=== PATIENT | female | born 1965 | race Caucasian/White ===

== ENCOUNTER 2018-04-20 14:22 | Outpatient (CLI) | payer OTHER, SELFPAY ==
--- NOTE | 2018-04-20 14:18 | DI.RAD_ITS ---
SYMPTOMS/DIAGNOSIS: LEFT FOOT PAIN LEFT FOOT: Three views. No priors. No acute fracture or dislocation. No suspicious lytic or sclerotic lesions are seen. There is a large spur at the plantar surface of the calcaneus. There is a moderate size enthesophyte at the insertion site of the Achilles onto the calcaneus. Mild joint space narrowing and periarticular spurring are seen at the 1st metatarsophalangeal joint. No radiopaque foreign bodies are seen in the soft tissues. IMPRESSION: Mild degenerative changes of the left foot.
== END 2018-04-20 14:42 ==
PROVIDERS: PCP Nurse Practitioner Family; Visit Provider Physician Assistant
DX: M79.672 Pain in left foot (principal); M77.32 Calcaneal spur, left foot; M19.072 Primary osteoarthritis, left ankle and foot
CPT/HCPCS: 73630

== ENCOUNTER 2018-08-11 22:34 | Emergency (ER) | payer OTHER, SELFPAY ==
[2018-08-11 22:39] VITALS: BP 162/85; PULSE 82; RESP 16; TEMP 36.6; O2SAT 96
--- NOTE | 2018-08-11 23:34 | ED.GENADUL_ITS ---
Discharge Plan Disposition Patient Disposition: HOME Condition: Fair Discharge Details Chief Complaint: Chest/Rib Clinical Impression: Back pain Primary Care Provider: Vanna Arguello ED Provider: Tamia Goff Home Meds and New Rx's Prescriptions: New lidocaine [Lidoderm] 5 % adhesive patch,medicated 1 patch TP DAILY Qty: 15 RF: 0 Continued meloxicam 15 mg tablet 15 mg PO DAILY Qty: 30 RF: 0 levonorgestrel [Mirena] 1 EACH intrauterine device 1 ea Intrauterine ONCE Qty: 1 RF: 0 acetaminophen [Tylenol] 325 MG tablet 325 mg PO PRN RF: 0 fluticasone [Flovent HFA] 12 GM HFA aerosol inhaler 110 mcg Inhalation BID PRNRF: 0 furosemide 20 MG tablet 20 mg PO DAILY PRNRF: 0 albuterol sulfate [ProAir RespiClick] 90 MCG aerosol powdr breath activated 2 puff IN PRN PRNRF: 0 oxycodone-acetaminophen 1 TAB tablet 1 tab PO Q6H PRN PRNQty: 14 RF: 0 Discharge Instructions Instructions: Back Pain (ED) Additional Instructions: Encourage hydration. Encourage gentle stretching. Heat or ice to affected area. Tylenol as needed for discomfort. Naproxen may be used twice daily, take this prior to bed to help with inflammation and discomfort. You may try topical patches, these are available over the counter as Lidoderm patches or Salonpas patches. If you develop rash, fevers, chills, abdominal pain, have urinary change, increased pain or other new/worsening symptoms please seek care urgently once again. If pain persists next week please follow up with primary care. Referrals: Vanna Arguello [Primary Care Provider] - Medical Decision Making Patient is a 53 year old female presenting today with c/c of right sided back pain that began 3-4 days ago. Pain only noted when laying supine. No pain when upright or with movement. Denies SOB, no CP. Denies change in urinary habits, no hematuria. Denies any fevers or chills. No cough or upper respiratory symptoms. Is not noted any rash. Denies any trauma or overexertion. States her bra is bothersome to the area so she stopped wearing this. On exam, patient does not appear to be in any discomfort. She is good range of motion, no midline tenderness. No CVA tenderness. No focal tenderness is elicited with palpation over the area. No crepitus. No pain with AP or lateral pressure applied to the chest wall. Patient has been normal sinus rhythm with no murmurs rubs or gallops. Lungs are clear with no wheezes rales or rhonchi. I did examine the patient's abdomen is well and when supine she began endorsing some discomfort on the right side of her mid thoracic back. No pain with palpation over the abdomen. Patient is noted to be obese but otherwise abdomen exam is benign. Patient is noted to be hypertensive but otherwise vital signs within normal limits. She has not taken anything on previous evenings for her discomfort. Will give Tylenol, naproxen and apply Lidoderm patch. Advised that likely, as this is so positional, he needs a musculoskeletal origin. Patient does have history of allergy to ibuprofen but reports she has taken naproxen without issue. Advised to take this to help with inflammation. Advise follow- up with primary care next week if pain persists. Encouraged hydration. We discussed new/worsening symptoms when to seek care urgently once again. All of his questions and concerns were addressed and he is in agreement with this plan. HPI General Mode of arrival: ambulatory . Date/Time Provider Initiated Documentation: 08/11/18 22:47 . Limitations to Documentation: no limitations . Information obtained by: patient . History of Present Illness 53 year old F presents to the emergency department with the chief complaint of right sided back pain, described as moderate, with intensity rated at 8. Quality is described as aching, and is localized to the back. Patient reports no radiation. Patient started experiencing this day(s) (3-4) and it has been intermittent (only when laying flat). other things that improve symptom(s), (upright position) Patient notes no other symptoms.; denies chest pain, cough, diaphoresis, fever/chills, loss of appetite, nausea/vomiting, rash, shortness of breath and weakness. Patient did receive the following treatments prior to arrival, none Related Data Home Medications Medication Instructions Recorded Confirmed furosemide 20 mg PO DAILY PRN 02/06/17 11/16/17 acetaminophen [Tylenol] 325 mg PO PRN tab-cap 07/27/17 11/16/17 fluticasone [Flovent HFA] 110 mcg INHALATION BID PRN inhaler 07/27/17 11/16/17 levonorgestrel [Mirena] 1 ea INTRAUTERINE ONCE #1 implant 07/27/17 11/16/17 albuterol sulfate [ProAir 2 puff IN PRN PRN 08/03/17 11/16/17 RespiClick] oxycodone-acetaminophen 1 tab PO Q6H PRN PRN #14 tab 11/16/17 meloxicam 15 mg tablet 15 mg PO DAILY #30 tab 04/20/18 04/20/18 lidocaine [Lidoderm] 1 patch TP DAILY #15 each 08/11/18 Previous Rx's Medication Instructions Recorded oxycodone-acetaminophen 1 tab PO Q6H PRN PRN #14 tab 11/16/17 meloxicam 15 mg tablet 15 mg PO DAILY #30 tab 04/20/18 lidocaine [Lidoderm] 1 patch TP DAILY #15 each 08/11/18 Allergies Allergy/AdvReac Type Severity Reaction Status Date / Time ibuprofen Allergy Unknown Skin Rash Unverified 08/11/18 22:56 General Stated Complaint: Chest/Rib JAYLON: 4 Review of Systems Constitutional Reports as per HPI, Denies chills, Denies fever(s), Denies headache(s), Denies lethargy and Denies poor appetite Eyes Denies change in vision ENT Denies headache(s) Cardiovascular Reports as per HPI, Denies chest pain, Denies rapid heart rate, Denies irregular heart rhythm, Denies lightheadedness, Denies radiating jaw, neck or arm pain, Denies palpitations, Denies dyspnea and Denies dyspnea on exertion Respiratory Denies chest congestion, Denies cough, Denies pain on inspiration, Denies pain with cough, Denies dyspnea, Denies dyspnea on exertion and Denies wheezing Gastrointestinal Reports as per HPI, Denies abdominal pain, Reports constipation (endorses intermittent constipation), Denies diarrhea, Denies nausea and Denies vomiting Musculoskeletal Reports as per HPI, Reports back pain, Denies numbness and Denies radiating pain into limb Integumentary/Breasts Reports as per HPI and Denies rash Neurologic Denies headache(s) and Denies numbness Endocrine Denies palpitations Allergic/Immunologic Denies wheezing PFSH Medical History Constipation Obesity, Class III, BMI 40-49.9 (morbid obesity) Osteoarthritis Surgical History Colonoscopy - MAC (10/25/16) Excision, Skin Mass Family History Mother Cervical cancer Social History Smoking/Tobacco Use Status: Current every day Exam Const General: cooperative, healthy appearing, comfortable, no acute distress and well developed Nutritional Appearance: well nourished and obese Orientation: alert, awake and oriented x3 HENMT Head: normal to inspection Ears: hearing grossly normal bilaterally Mouth: moist mucous membranes Chest Chest: normal inspection of the chest, normal palpation of entire chest wall and no crepitus Resp Effort & Inspection: normal respiratory effort, able to speak in complete sentences and no respiratory distress Auscultation: clear to auscultation bilaterally, no rales, no rhonchi and no wheezes Cardio Rate: regular rate Rhythm: regular rhythm Heart Sounds: S1 normal and S2 normal GI Inspection: normal to inspection, no edema and non-distended Palpation: soft, no hepatosplenomegaly, not firm, no guarding, not rigid and nontender Auscultation: normal bowel sounds Back/Spine/Pelvis Back: no CVA tenderness Thoracic/Lumbar Spine: thoracic and lumbar spine normal to inspection, thoraco- lumbar ROM normal, No paraspinal tenderness, No thoraco-lumbar ROM limited, No thoracic spinal tenderness and No lumbar spinal tenderness Skin General skin exam: no rashes or lesions noted Trauma: no lacerations or abrasions Neuro General: alert, awake and oriented x3 Cognition: normal cognition Speech: speech normal Gait: normal gait Extrem General: normal gait Psych Appearance: grossly normal and well kempt Mental Status: mental status grossly normal Speech and Movement: speech and movement normal Course Vital Signs Temperature 36.6 C 08/11/18 22:39 Pulse 82 08/11/18 22:39 Respiratory Rate 16 08/11/18 22:39 Blood Pressure 162/85 H 08/11/18 22:39 Pulse Oximetry 96 08/11/18 22:39 Temperature 36.6 C 08/11/18 22:39 Temperature Source Skin 08/11/18 22:39 Pulse 82 08/11/18 22:39 Respiratory Rate 16 08/11/18 22:39 Respiratory Effort Non-Labored 08/11/18 22:44 Blood Pressure 162/85 H 08/11/18 22:39 Pulse Oximetry 96 08/11/18 22:39 Oxygen Delivery Method Room Air 08/11/18 22:39 Oxygen Flow Rate 0 08/11/18 22:39 Pain Level 8 08/11/18 22:44
[2018-08-11] MEDS: Lidocaine 5% Patch 1 PATCH TP (23:54)
[2018-08-11] MEDS: Acetaminophen 500 MG TAB 1000 MG PO (23:54)
[2018-08-11] MEDS: Naproxen 500 MG TAB PO (23:54)
[2018-08-11 23:58] VITALS: BP 162/85; PULSE 82; RESP 16; TEMP 36.6; O2SAT 96
== END 2018-08-12 00:22 | disposition home or self-care (01) ==
PROVIDERS: Emergency Provider Physician Assistant; PCP Nurse Practitioner Family
DX: M54.6 Pain in thoracic spine (principal)
CPT/HCPCS: 99283

== ENCOUNTER 2018-09-07 18:39 | Emergency (ER) | payer OTHER, SELFPAY ==
[2018-09-07 18:46] VITALS: BP 127/86; PULSE 94; RESP 18; TEMP 37.2; O2SAT 96
--- NOTE | 2018-09-07 18:50 | DI.RAD_ITS ---
SYMPTOM/DIAGNOSIS: PAIN RIGHT KNEE: Three views were obtained. There are degenerative changes of the joints of the knee. There is no evidence of acute fracture.
--- NOTE | 2018-09-07 18:50 | W.ED.GENAD ---
Discharge Plan Disposition Patient Disposition: HOME Condition: Stable Discharge Details Chief Complaint: Orthopedic Clinical Impression: Knee sprain Primary Care Provider: Vanna Arguello ED Provider: Ramon Delgado Home Meds and New Rx's Prescriptions: No Action meloxicam 15 mg tablet 15 mg PO DAILY Qty: 30 RF: 0 levonorgestrel [Mirena] 1 EACH intrauterine device 1 ea Intrauterine ONCE Qty: 1 RF: 0 acetaminophen [Tylenol] 325 MG tablet 325 mg PO PRN RF: 0 fluticasone [Flovent HFA] 12 GM HFA aerosol inhaler 110 mcg Inhalation BID PRNRF: 0 furosemide 20 MG tablet 20 mg PO DAILY PRNRF: 0 albuterol sulfate [ProAir RespiClick] 90 MCG aerosol powdr breath activated 2 puff IN PRN PRNRF: 0 oxycodone-acetaminophen 1 TAB tablet 1 tab PO Q6H PRN PRNQty: 14 RF: 0 lidocaine [Lidoderm] 5 % adhesive patch,medicated 1 patch TP DAILY Qty: 15 RF: 0 Discharge Instructions Instructions: Knee Sprain (ED) Discharge Data Discharge Date/Time-TO BE ENTERED AT DEPARTURE: 09/07/18 20:33 Discharge Physician: Ramon Delgado Medical Decision Making 53 yo female states she stood up from sitting an hour or so ago, denies falling or other trauma, and developed anterior inferior right knee pain. Denies fevers or chills. No other pain elsewhere. Has pain with palpation to the lateral joint line and inferior knee with no palpable deformities or swelling compared to the left knee. Suspect strain vs bursitis, will xray to eval for fx xray negative on my read. Pt still having significant pain with weight bearing, though mechanism would make fx unlikely I did recommend CT to evaluate for possible fx but she declined this at this time. If vrad agrees no fx will d/c home Differential Diagnosis bursitis, fx, sprain, strain Imaging Data Radiologic Study: Attestation: I personally reviewed and interpreted this imaging study as follows: Imaging: X-Ray My impression: no acute findings HPI General Mode of arrival: ambulatory. Date/Time Provider Initiated Documentation: 09/07/18 18:42. Limitations to Documentation: no limitations. Information obtained by: patient. History of Present Illness 53 year old F presents to the emergency department with the chief complaint of right knee pain, described as moderate, with intensity rated at 6. Quality is described as aching, and is localized to the right and lower extremity. Patient reports no radiation. Patient started experiencing this hour(s) (1) and it has been constant. Rest improves symptom(s), Movement worsens symptoms . Patient notes no other symptoms.. Related Data Home Medications Medication Instructions Recorded Confirmed furosemide 20 mg PO DAILY PRN 02/06/17 11/16/17 acetaminophen [Tylenol] 325 mg PO PRN tab-cap 07/27/17 11/16/17 fluticasone [Flovent HFA] 110 mcg INHALATION BID PRN inhaler 07/27/17 11/16/17 levonorgestrel [Mirena] 1 ea INTRAUTERINE ONCE #1 implant 07/27/17 11/16/17 albuterol sulfate [ProAir 2 puff IN PRN PRN 08/03/17 11/16/17 RespiClick] oxycodone-acetaminophen 1 tab PO Q6H PRN PRN #14 tab 11/16/17 meloxicam 15 mg tablet 15 mg PO DAILY #30 tab 04/20/18 04/20/18 lidocaine [Lidoderm] 1 patch TP DAILY #15 each 08/11/18 Previous Rx's Medication Instructions Recorded oxycodone-acetaminophen 1 tab PO Q6H PRN PRN #14 tab 11/16/17 meloxicam 15 mg tablet 15 mg PO DAILY #30 tab 04/20/18 lidocaine [Lidoderm] 1 patch TP DAILY #15 each 08/11/18 Allergies Allergy/AdvReac Type Severity Reaction Status Date / Time ibuprofen Allergy Unknown Skin Rash Unverified 08/11/18 22:56 General Stated Complaint: Orthopedic JAYLON: 4 Review of Systems Review of Systems All systems reviewed & are unremarkable except as noted in HPI and below Constitutional Denies chills, Denies fever(s) and Denies weakness Cardiovascular Denies chest pain and Denies dyspnea Respiratory Denies cough and Denies dyspnea Gastrointestinal Denies abdominal pain, Denies nausea and Denies vomiting Genitourinary Denies dysuria Musculoskeletal Denies joint swelling Integumentary/Breasts Denies rash Neurologic Denies weakness Psychiatric Denies depression [facility] Medical History Constipation Obesity, Class III, BMI 40-49.9 (morbid obesity) Osteoarthritis Surgical History Colonoscopy - MAC (10/25/16) Excision, Skin Mass Family History Mother Cervical cancer Social History Smoking and Tabacco status: Current every day Exam Const General: no acute distress Orientation: alert HENMT Head: normal to inspection Ears: external ears normal General nose exam: external nose normal Mouth: moist mucous membranes Eyes General: appearance normal, both eyes and all related structures Neck Neck: normal visual inspection Resp Effort & Inspection: normal respiratory effort and able to speak in complete sentences Cardio Rate: regular rate Skin General skin exam: no rashes or lesions noted Neuro General: alert and oriented x3 Extrem General: full ROM and normal capillary refill Psych Mental Status: mental status grossly normal Course Vital Signs Temperature 37.2 C 09/07/18 18:46 Pulse 94 H 09/07/18 18:46 Respiratory Rate 18 09/07/18 18:46 Blood Pressure 127/86 09/07/18 18:46 Pulse Oximetry 96 09/07/18 18:46 Temperature 37.2 C 09/07/18 18:46 Temperature Source Skin 09/07/18 18:46 Pulse 94 H 09/07/18 18:46 Respiratory Rate 18 09/07/18 18:46 Respiratory Effort 09/07/18 18:49 Blood Pressure 127/86 09/07/18 18:46 Pulse Oximetry 96 09/07/18 18:46 Oxygen Delivery Method Room Air 09/07/18 18:46 Oxygen Flow Rate 0 09/07/18 18:46 Pain Level 0 09/07/18 18:46 Comment 09/07/18 18:46
--- NOTE | 2018-09-07 18:53 | ED.GENADUL_ITS ---
Discharge Plan Disposition Patient Disposition: HOME Condition: Stable Discharge Details Chief Complaint: Orthopedic Clinical Impression: Knee sprain Primary Care Provider: Vanna Arguello ED Provider: Ramon Delgado Home Meds and New Rx's Prescriptions: No Action meloxicam 15 mg tablet 15 mg PO DAILY Qty: 30 RF: 0 levonorgestrel [Mirena] 1 EACH intrauterine device 1 ea Intrauterine ONCE Qty: 1 RF: 0 acetaminophen [Tylenol] 325 MG tablet 325 mg PO PRN RF: 0 fluticasone [Flovent HFA] 12 GM HFA aerosol inhaler 110 mcg Inhalation BID PRNRF: 0 furosemide 20 MG tablet 20 mg PO DAILY PRNRF: 0 albuterol sulfate [ProAir RespiClick] 90 MCG aerosol powdr breath activated 2 puff IN PRN PRNRF: 0 oxycodone-acetaminophen 1 TAB tablet 1 tab PO Q6H PRN PRNQty: 14 RF: 0 lidocaine [Lidoderm] 5 % adhesive patch,medicated 1 patch TP DAILY Qty: 15 RF: 0 Discharge Instructions Instructions: Knee Sprain (ED) Discharge Data Discharge Date/Time-TO BE ENTERED AT DEPARTURE: 09/07/18 20:33 Discharge Physician: Ramon Delgado Medical Decision Making 53 yo female states she stood up from sitting an hour or so ago, denies falling or other trauma, and developed anterior inferior right knee pain. Denies fevers or chills. No other pain elsewhere. Has pain with palpation to the lateral joint line and inferior knee with no palpable deformities or swelling compared to the left knee. Suspect strain vs bursitis, will xray to eval for fx xray negative on my read. Pt still having significant pain with weight bearing, though mechanism would make fx unlikely I did recommend CT to evaluate for possible fx but she declined this at this time. If vrad agrees no fx will d/c home Differential Diagnosis bursitis, fx, sprain, strain Imaging Data Radiologic Study: Attestation: I personally reviewed and interpreted this imaging study as follows: Imaging: X-Ray My impression: no acute findings HPI General Mode of arrival: ambulatory . Date/Time Provider Initiated Documentation: 09/07/18 18:42 . Limitations to Documentation: no limitations . Information obtained by: patient . History of Present Illness 53 year old F presents to the emergency department with the chief complaint of right knee pain, described as moderate, with intensity rated at 6. Quality is described as aching, and is localized to the right and lower extremity. Patient reports no radiation. Patient started experiencing this hour(s) (1) and it has been constant. Rest improves symptom(s), Movement worsens symptoms . Patient notes no other symptoms.. Related Data Home Medications Medication Instructions Recorded Confirmed furosemide 20 mg PO DAILY PRN 02/06/17 11/16/17 acetaminophen [Tylenol] 325 mg PO PRN tab-cap 07/27/17 11/16/17 fluticasone [Flovent HFA] 110 mcg INHALATION BID PRN inhaler 07/27/17 11/16/17 levonorgestrel [Mirena] 1 ea INTRAUTERINE ONCE #1 implant 07/27/17 11/16/17 albuterol sulfate [ProAir 2 puff IN PRN PRN 08/03/17 11/16/17 RespiClick] oxycodone-acetaminophen 1 tab PO Q6H PRN PRN #14 tab 11/16/17 meloxicam 15 mg tablet 15 mg PO DAILY #30 tab 04/20/18 04/20/18 lidocaine [Lidoderm] 1 patch TP DAILY #15 each 08/11/18 Previous Rx's Medication Instructions Recorded oxycodone-acetaminophen 1 tab PO Q6H PRN PRN #14 tab 11/16/17 meloxicam 15 mg tablet 15 mg PO DAILY #30 tab 04/20/18 lidocaine [Lidoderm] 1 patch TP DAILY #15 each 08/11/18 Allergies Allergy/AdvReac Type Severity Reaction Status Date / Time ibuprofen Allergy Unknown Skin Rash Unverified 08/11/18 22:56 General Stated Complaint: Orthopedic JAYLON: 4 Review of Systems Review of Systems All systems reviewed & are unremarkable except as noted in HPI and below Constitutional Denies chills, Denies fever(s) and Denies weakness Cardiovascular Denies chest pain and Denies dyspnea Respiratory Denies cough and Denies dyspnea Gastrointestinal Denies abdominal pain, Denies nausea and Denies vomiting Genitourinary Denies dysuria Musculoskeletal Denies joint swelling Integumentary/Breasts Denies rash Neurologic Denies weakness Psychiatric Denies depression [facility] Medical History Constipation Obesity, Class III, BMI 40-49.9 (morbid obesity) Osteoarthritis Surgical History Colonoscopy - MAC (10/25/16) Excision, Skin Mass Family History Mother Cervical cancer Social History Smoking and Tabacco status: Current every day Exam Const General: no acute distress Orientation: alert HENMT Head: normal to inspection Ears: external ears normal General nose exam: external nose normal Mouth: moist mucous membranes Eyes General: appearance normal, both eyes and all related structures Neck Neck: normal visual inspection Resp Effort & Inspection: normal respiratory effort and able to speak in complete sentences Cardio Rate: regular rate Skin General skin exam: no rashes or lesions noted Neuro General: alert and oriented x3 Extrem General: full ROM and normal capillary refill Psych Mental Status: mental status grossly normal Course Vital Signs Temperature 37.2 C 09/07/18 18:46 Pulse 94 H 09/07/18 18:46 Respiratory Rate 18 09/07/18 18:46 Blood Pressure 127/86 09/07/18 18:46 Pulse Oximetry 96 09/07/18 18:46 Temperature 37.2 C 09/07/18 18:46 Temperature Source Skin 09/07/18 18:46 Pulse 94 H 09/07/18 18:46 Respiratory Rate 18 09/07/18 18:46 Respiratory Effort 09/07/18 18:49 Blood Pressure 127/86 09/07/18 18:46 Pulse Oximetry 96 09/07/18 18:46 Oxygen Delivery Method Room Air 09/07/18 18:46 Oxygen Flow Rate 0 09/07/18 18:46 Pain Level 0 09/07/18 18:46 Comment 09/07/18 18:46
--- NOTE | 2018-09-07 19:50 | DI.VRAD_ITS ---
EXAM: XR Right Knee, 3 Views EXAM DATE/TIME: 09/07/2018 6:51 PM CLINICAL HISTORY: 53 years old, female; Pain; Knee; Right; Additional info: Unable to straighten or bear weight on right leg due to knee pain, S/P standing up earlier this evening per patient TECHNIQUE: XR Right knee 3 views. COMPARISON: No relevant prior studies available. FINDINGS: Bones/joints: Mild degenerative changes with joint space narrowing within the medial and lateral compartments. Patellar enthesophytes. Small suprapatellar effusion. Soft tissues: Normal. IMPRESSION: No acute fractures or dislocations. Mild degenerative changes. Dictated and Authenticated by: Marco Delong MD. Ordering:ANIYA Navarro MD
[2018-09-07 20:24] VITALS: BP 127/86; PULSE 94; RESP 18; TEMP 37.2; O2SAT 96
[2018-09-07] MEDS: Naproxen 250 MG TAB (20:29)
== END 2018-09-07 20:33 | disposition home or self-care (01) ==
PROVIDERS: Emergency Provider Emergency Medicine; PCP Nurse Practitioner Family
DX: S83.91XA Sprain of unspecified site of right knee, initial encounter (principal); X58.XXXA Exposure to other specified factors, initial encounter
CPT/HCPCS: 29105; 73562; 99283; 99282; E0114; L1830

== ENCOUNTER 2019-05-18 13:45 | Emergency (ER) | payer OTHER, SELFPAY ==
[2019-05-18 13:51] VITALS: BP 135/85; PULSE 87; RESP 16; TEMP 37; O2SAT 96
--- NOTE | 2019-05-18 13:52 | ED.GENADUL_ITS ---
Discharge Plan Disposition Patient Disposition: AGAINST MEDICAL ADVICE Condition: Fair Discharge Details Chief Complaint: Cellulitis Clinical Impression: Superficial thrombophlebitis, Cellulitis Primary Care Provider: Rubens Lee ED Provider: Tamia Goff Home Meds and New Rx's Prescriptions: No Action Mirena 1 EACH intrauterine device 1 ea Intrauterine ONCE Qty: 1 RF: 0 acetaminophen [Tylenol] 325 MG tablet 325 mg PO PRN RF: 0 albuterol sulfate [ProAir RespiClick] 90 MCG aerosol powdr breath activated 2 puff IN PRN PRNRF: 0 Medical Decision Making Patient 54-year-old female presents today with chief complaint of right lower extremity pain. She reports that she noted a hard, warm and erythematous area to the right medial calf this morning this is grown significantly while at work today. States the pain is severe. Denies any known trauma. No fevers or chills. Does not have history of varicosities. Denies any numbness or tingling. On exam, the patient has a area of erythema approximately 15 cm in diameter surrounding an area of indurated skin approximately 5 cm in diameter. No fluctuance. It is not raised. A culture from the area of concern for superficial thrombophlebitis. 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 Will obtain US and patient will leave. She will return after getting them to discuss results and make a plan. discussed that she will likely be on abx and +/- anticoagulation. Patient left prior to results. She is aware that if this is a DVT she could be at risk for serious complications, knows that she should stay and has capacity to make this decisio n. She reports that she will return in approximately one hour for results and to discuss care plan. Labs reviewed, mild leukocytosis with WBC 11.11. PT/ PTT pending. Discussed imaging results with tech who advised scattered superficial vessels in the area of erythema are thrombosed but no large length of involvement. Estimates greatest length to be approximately 3cm but advises that htis is very tortuous. Awaiting results from radiologist. However, if this is the same as their read, will plan for rest, ice, CARLENE, NSAID and antibiotic. HPI General Mode of arrival: ambulatory . Date/Time Provider Initiated Documentation: 05/18/19 13:52 . Limitations to Documentation: no limitations . Information obtained by: patient, family and RN notes reviewed . History of Present Illness 54 year old F presents to the emergency department with the chief complaint of right medial calf pain, described as moderate, with intensity rated at 5. Quality is described as aching, and is localized to the right and lower extremity. Patient reports no radiation. Patient started experiencing this hour(s) and it has been constant. Immobilization improves symptom(s), Other factors that worsen symptoms (pressure applied to area) . Patient notes rash (erythema); denies chest pain, cough, fever/chills, nausea/vomiting, shortness of breath and weakness. Patient did receive the following treatments prior to arrival, none Related Data Home Medications Medication Instructions Recorded Confirmed Mirena 1 ea INTRAUTERINE ONCE #1 implant 07/27/17 05/18/19 acetaminophen [Tylenol] 325 mg PO PRN tab-cap 07/27/17 11/16/17 albuterol sulfate [ProAir 2 puff IN PRN PRN 08/03/17 11/16/17 RespiClick] Allergies Allergy/AdvReac Type Severity Reaction Status Date / Time ibuprofen Allergy Unknown Skin Rash Unverified 05/18/19 13:57 General JAYLON: 4 Review of Systems Constitutional Constitutional: Reports as per HPI, Denies chills, Denies fever(s), Denies headache(s) and Denies weakness ENT Ears, Nose, Mouth, and Throat: Denies headache(s) Cardiovascular Cardiovascular: Reports as per HPI Respiratory Respiratory: Reports as per HPI and Denies cough Musculoskeletal Musculoskeletal: Reports as per HPI and Denies tingling Integumentary/Breasts Skin/Breast: Reports as per HPI, Reports erythema and Reports skin pain Neurologic Neurologic: Reports as per HPI, Denies headache(s), Denies tingling, Denies paresthesias and Denies weakness [facility] Medical History Constipation Obesity, Class III, BMI 40-49.9 (morbid obesity) Osteoarthritis Surgical History Colonoscopy - MAC (10/25/16) Excision, Skin Mass Social History Smoking/Tobacco Use Status: Current every day Drug use: Never Do you feel safe in your relationship?: Yes Exam Const General: cooperative, healthy appearing, comfortable, no acute distress, well developed and well groomed Nutritional Appearance: average body habitus and well nourished Orientation: alert and awake Resp Effort & Inspection: normal respiratory effort, able to speak in complete sentences and no respiratory distress Cardio Rate: regular rate Rhythm: regular rhythm Skin General skin exam: erythema, no fluctuance and induration Neuro General: alert and awake Cognition: normal cognition Speech: speech normal Gait: normal gait Motor: muscle tone normal throughout Sensory Exam: no sensory deficits noted Extrem Ankle/foot/toe images: 1. area of erythema with central induration. No palpable cord. No pain pos teriorly. Intact distal pulses Psych Appearance: grossly normal and well kempt Mental Status: mental status grossly normal Speech and Movement: speech and movement normal
--- NOTE | 2019-05-18 14:21 | DI.US_ITS ---
EXAM: US LOWER EXTREMITY VENOUS RT CLINICAL HISTORY: superficial thrombophlebitis- going deeper? size? Medial calf redness, swelling an d pain started this morning TECHNIQUE: Ultrasound performed using standard protocol. COMPARISON: No exams were available for comparison FINDINGS: The femoral and popliteal veins and deep calf veins are freely compressible. The Doppler venous wavef orm augments normally. There are dilated superficial veins in the right medial calf, which show thro mbus. This is in the area of the patient's tenderness. The veins above and below this area show no evidence of thrombus. IMPRESSION: SUPERFICIAL THROMBOPHLEBITIS IN THE MEDIAL CALF. NO EVIDENCE OF DVT.
[2019-05-18 14:44] LABS: HCT 45.8 % (36.0-46.0); HGB 15.3 g/dL (12.0-15.5); Mean Corp. HGB Concentration 33.4 g/dL (32.0-36.0); Mean Corpuscular Hemoglobin 30.4 pg (27.0-33.0); Mean Corpuscular Volume 90.9 fL (80-95); Mean Platelet Volume 10.2 fL (8.0-11.0); Platelet Count 391 x1000/uL (130-400); RBC 5.04 m/cumm (4.00-5.20); RBC Distribution Width 14.1 % (11.7-14.6); White Blood Cell Count 11.11 k/cumm (4.4-10.8)
[2019-05-18 14:55] LABS: ALT 33 U/L (14-59); AST 15 U/L (15-37); Albumin 3.7 g/dL (3.4-5.0); Alkaline Phosphatase 95 U/L (46-116); Anion Gap 10.5 mmol/L (3-11); BUN 14 mg/dL (7-18); Bilirubin, Total 0.3 mg/dL (0.2-1.0); CO2 27.5 mmol/L (21.0-32.0); CREATININE 0.87 mg/dL (0.55-1.02); Chloride 105 mmol/L (98-107); Glucose 117 mg/dL (70-100); Potassium 3.5 mmol/L (3.5-5.1); Sodium 143 mmol/L (136-145); Total Protein 8.1 g/dL (6.4-8.2)
[2019-05-18 15:24] LABS: INR 1.1 (0.9-1.1); PTT Activated 24.7 sec (21.0-31.4); Prothrombin Time 10.8 sec (9.3-11.0)
== END 2019-05-18 15:25 | disposition left against medical advice (07) ==
PROVIDERS: Emergency Provider Physician Assistant; PCP Nurse Practitioner Family
DX: L03.114 Cellulitis of left upper limb (principal); I80.01 Phlebitis and thrombophlebitis of superficial vessels of right lower extremity; Z53.29 Procedure and treatment not carried out because of patient's decision for other reasons
CPT/HCPCS: 36415; 80053; 85027; 99284; 85610; 85730; 93971

== ENCOUNTER 2019-05-18 17:27 | Emergency (ER) | payer OTHER, SELFPAY ==
[2019-05-18 17:31] VITALS: BP 145/90; PULSE 71; RESP 14; TEMP 36.8
--- NOTE | 2019-05-18 18:09 | ED.GENADUL_ITS ---
Discharge Plan Disposition Patient Disposition: HOME Condition: Stable Discharge Details Chief Complaint: Recheck Clinical Impression: Superficial thrombophlebitis Primary Care Provider: Rubens Lee ED Provider: Loren Sprague Home Meds and New Rx's Prescriptions: New cephalexin [Keflex] 500 mg capsule 500 mg PO QID 7 Days Qty: 28 RF: 0 Continued Mirena 1 EACH intrauterine device 1 ea Intrauterine ONCE Qty: 1 RF: 0 acetaminophen [Tylenol] 325 MG tablet 325 mg PO PRN RF: 0 albuterol sulfate [ProAir RespiClick] 90 MCG aerosol powdr breath activated 2 puff IN PRN PRNRF: 0 Discharge Instructions Instructions: Superficial Thrombophlebitis (ED) Additional Instructions: Take yaat-ahm-jjjrcai Aleve or Advil as directed over the next few days to help treat the redness, inflammation and pain. Try to elevate your right leg as much as possible. You can apply warm or cool compresses to the affected area several times daily for 20 minutes at a time. Wear the Trae wrap as much as possible. If you develop fever, worsening redness, swelling or drainage, start the antibiotics. Follow-up with your primary care doctor next week for reevaluation. Return to the emergency department if you develop any worsening or new concerning symptoms of significant worsening of symptoms, chest pain, shortness of breath or dizziness. Discharge Data Discharge Date/Time-TO BE ENTERED AT DEPARTURE: 05/18/19 18:24 Discharge Physician: Loren Sprague Medical Decision Making 54-year-old female with history of obesity presents with right leg pain and redness that started at 4 AM and has gotten progressively worse throughout the day. She was seen earlier today for the same complaint but had to leave to deal with rental car issue. She had lab work and ultrasound done at that time which noted a white blood cell count of 11 but otherwise unremarkable and an ultrasound which noted superficial thrombophlebitis but no DVT. Patient denies any complaints of fever, chest pain, shortness of breath. She has been wearing a knee brace due to a recent patella complication/displacement. It is possible that the hard metal within the knee brace she has been wearing may have caused an irritation/inflammation in the skin leading to this. Her right medial leg has an approximate area 10 x 8 cm that appears erythematous not well-circumscribed, blanching and very tender to touch which appears can be c/w a superficial thrombophlebitis and/or possibly early cellulitis. She denies any recent history of ablation therapy, blood clotting disorders, recent travel or recent surgery. Her chart noted an allergy to ibuprofen which causes skin rash but she states she has tolerated Aleve and Advil in the past. Will give a dose of Aleve here and an Trae wrap was placed over her area of erythema and tenderness extending up above the patella allowing an opening around patella similar to knee brace. She is advised to call her doctor regarding use of the knee brace with her current thrombophlebitis. She was also given a prescription for Keflex to start if she develops fever or worsening symptoms including purulent drainage. She was advised to return immediately to the emergency department if she develops any shortness of breath, chest pain or dizziness. Discussed at length with patient that I do not think she needs anticoagulation at this time as there is no deep extension of the superficial thrombus or any history of recent endovenous ablation therapy or other known risk factors. Another consideration could be serial ultrasounds to reassess any extension of superficial thrombus. HPI General Mode of arrival: ambulatory . Date/Time Provider Initiated Documentation: 05/18/19 17:43 . Limitations to Documentation: no limitations . Information obtained by: patient . History of Present Illness described as moderate, with intensity rated at 6. Quality is described as aching and sharp, and is localized to the right and lower extremity (leg). Patient reports no radiation. Patient started experiencing this hour(s) (13) and it has been constant. Immobilization improves symptom(s), Other factors that worsen symptoms (pressure to area) . Patient notes rash and other (denies known injury but states she has been wearing a knee brace recently for a knee cap problem which may have rubbed against her leg); denies chest pain, cough, diaphoresis, fever/chills, headaches, loss of appetite, malaise, nausea/vomiting, shortness of breath, syncope and weakness. Patient did receive the following treatments prior to arrival, none Related Data Home Medications Medication Instructions Recorded Confirmed Mirena 1 ea INTRAUTERINE ONCE #1 implant 07/27/17 05/18/19 acetaminophen [Tylenol] 325 mg PO PRN tab-cap 07/27/17 11/16/17 albuterol sulfate [ProAir 2 puff IN PRN PRN 08/03/17 11/16/17 RespiClick] cephalexin [Keflex] 500 mg PO QID 7 Days #28 cap 05/18/19 Previous Rx's Medication Instructions Recorded cephalexin [Keflex] 500 mg PO QID 7 Days #28 cap 05/18/19 Allergies Allergy/AdvReac Type Severity Reaction Status Date / Time ibuprofen Allergy Unknown Skin Rash Unverified 05/18/19 13:57 General Stated Complaint: Recheck JAYLON: 4 Review of Systems All systems reviewed & are unremarkable except as noted in HPI and below Constitutional Constitutional: Reports as per HPI, Denies chills and Denies fever(s) Eyes Eyes: Denies blurry vision ENT Ears, Nose, Mouth, and Throat: Denies dizziness, Denies sore throat and Denies throat swelling Cardiovascular Cardiovascular: Denies chest pain and Denies dyspnea Respiratory Respiratory: Denies cough and Denies dyspnea Gastrointestinal Gastrointestinal: Denies abdominal pain, Denies diarrhea and Denies vomiting Genitourinary Genitourinary: Denies hematuria and Denies dysuria Musculoskeletal Musculoskeletal: Denies back pain and Denies numbness Integumentary/Breasts Skin/Breast: Denies lesions and Denies rash Neurologic Neurologic: Denies dizziness, Denies focal weakness and Denies numbness Allergic/Immunologic Allergic/Immunologic: Denies throat swelling [facility] Medical History Constipation Obesity, Class III, BMI 40-49.9 (morbid obesity) Osteoarthritis Surgical History Colonoscopy - MAC (10/25/16) Excision, Skin Mass Family History Mother Cervical cancer Social History Smoking/Tobacco Use Status: Current every day Tobacco Type: cigarettes Alcohol Intake: never Drug use: Never Substance use type: does not use Do you feel safe at home: Yes Do you feel safe in your relationship?: Yes Exam Const General: cooperative, healthy appearing and no acute distress HENMT Head: normal to inspection Face and sinus: normal facial exam Eyes General: appearance normal, both eyes and all related structures Pupils: PERRL EOM: EOM intact bilaterally Neck Neck: normal visual inspection and No submandibular swelling Lymphatic: no lymphadenopathy noted Chest Chest: normal inspection of the chest and no tenderness Resp Effort & Inspection: normal respiratory effort and able to speak in complete sentences Cardio Rate: regular rate GI Inspection: normal to inspection Palpation: soft, not firm, not rigid and nontender Auscultation: normal bowel sounds Skin General skin exam: no rashes or lesions noted Neuro General: alert, awake and oriented x3 Cognition: normal cognition Speech: speech normal Motor: muscle tone normal throughout Sensory Exam: no sensory deficits noted Extrem Ankle/foot/toe images: 1. Tender, erythematous, with patchy faint non-circumscribed edges noted on r ight medial proximal leg. There are no pustules, vesicles, bleeding or drainage. Right DP/PT pulses intact. No significant overall edema of right leg compared to left. Psych Appearance: grossly normal Mental Status: mental status grossly normal Speech and Movement: speech and movement normal Affect: normal affect Course Vital Signs Vital signs: Vital Signs Temperature 98.2 F 05/18/19 17:31 Pulse 71 05/18/19 17:31 Respiratory Rate 14 05/18/19 17:31 Blood Pressure 145/90 H 05/18/19 17:31 Temperature 98.2 F 05/18/19 17:31 Temperature Source Temporal Artery Scan 05/18/19 17:31 Pulse 71 05/18/19 17:31 Respiratory Rate 14 05/18/19 17:31 Respiratory Effort Non-Labored 05/18/19 17:33 Blood Pressure 145/90 H 05/18/19 17:31 Blood Pressure Position Sitting 05/18/19 17:31 Oxygen Delivery Method Room Air 05/18/19 17:31 Oxygen Flow Rate 0 05/18/19 17:31 Pain Level 5 05/18/19 17:31
[2019-05-18] MEDS: Naproxen 250 MG TAB (18:15)
== END 2019-05-18 18:24 | disposition home or self-care (01) ==
PROVIDERS: Emergency Provider Physician Assistant; PCP Nurse Practitioner Family
DX: I80.01 Phlebitis and thrombophlebitis of superficial vessels of right lower extremity (principal)
CPT/HCPCS: 99283

== ENCOUNTER 2019-07-03 09:59 | Emergency (ER) | payer OTHER, SELFPAY ==
[2019-07-03] VITALS (22 sets, daily range): BP systolic 110–151; BP diastolic 65–86; PULSE 66–80; RESP 15–29; TEMP 36.7; O2SAT 92–100
--- NOTE | 2019-07-03 10:26 | W.ED.GENAD ---
Discharge Plan Disposition Patient Disposition: HOME Condition: Good Discharge Details Chief Complaint: Chest/Rib Clinical Impression: Chest pain Primary Care Provider: Rubens Lee ED Provider: Suhas Banuelos Home Meds and New Rx's Prescriptions: No Action Mirena 1 EACH intrauterine device 1 ea Intrauterine ONCE Qty: 1 RF: 0 acetaminophen [Tylenol] 325 MG tablet 325 mg PO PRN RF: 0 ProAir RespiClick 90 MCG aerosol powdr breath activated 2 puff IN PRN PRNRF: 0 aspirin 325 mg Tablet 325 mg PO DAILY RF: 0 Discharge Instructions Instructions: Chest Pain (ED) Additional Instructions: I would definitely recommend cutting down on smoking. At this time your chest pain does not seem to be related to your heart. If you notice any worsening of your symptoms, or any new symptoms such as vomiting, diarrhea, fever, chills, shortness of breath, chest pain, numbness, weakness, or fainting , please return immediately to the emergency department for reevaluation. Please follow up with your primary care provider as soon as possible for reassessment and reevaluation. As always, it was a pleasure participating in your medical care today. Referrals: Rubens Lee, [employer] PS[employer]IST [Primary Care Provider] - Medical Decision Making This is a pleasant 54-year-old female who presents today for shortness of breath and mild chest pain that started last night and was present when she woke up. It got better when she got up and ambulated around. No red flags of cough hemoptysis long trips recent surgeries or procedures. However she does have red flags of the Mirena estrogen control device, as well as a history of superficial thrombophlebitis. EKG shows no evidence of STEMI. Signs and symptoms demonstrate notably stable appearing patient. Patient feels that her symptoms are related to stress. Differential includes PE, stress and atypical cardiac etiology which I feel less likely. With her risk factors will get a d-dimer, currently she is pain-free. Will monitor closely and reassess. 12:05 PM Patient's laboratory work-up is returned negative for acute process, troponin normal, white count normal, electrolytes normal and her renal function normal. proBNP normal. Since the patient's symptoms started last night over 12 hours ago and is no indication for repeat troponin at this time. Additionally patient has been chest pain-free here, signs and symptoms are clinically inconsistent with ACS. With a negative d-dimer, and a chest x-ray with no acute process per Dr. Conley of radiology, they see no indication for further evaluation at this time. Signs and symptoms are likely secondary to potential very mild bronchitis, and potential decompensation secondary to decreased mobility with her chronic pain. We recommended cutting down on tobacco use, as well as close follow-up with her PCP. We discussed red flags which to return. I have extensively reviewed the treatment plan and discharge instructions with the patient. I have addressed all patient concerns at this time. The patient was made aware of what symptoms to monitor for that would warrant a return to the emergency department. Discussed the plan with the patient, they demonstrate verbal understanding and agreement with our assessment and plan at this time. EKG 10: 08 Rate 84, intervals normal, sinus rhythm, no significant ST elevations or depressions, there is an inverted T wave in lead III, as well as minimal less than 1 mm depression in lead II. No evidence of STEMI. EKG from 02/06/2017 demonstrates similar findings in the past. HPI General Date/Time Provider Initiated Documentation: 07/03/19 10:00. HPI Narrative: This is a 54-year-old female with a past medical history of obesity, takes estrogen control, and history of superficial thrombophlebitis, who presents today for evaluation of chest pain shortness of breath. Patient states that for the last 12 hours she has had mild right-sided rib pain mild chest tightness. She has some associated shortness of breath with this. She has been under significant amount of stress as of late and feels that this may be the causative agent. She denies any independent pleuritic chest pain. She does state that when she woke up with the pain this morning in conjunction from last night, it got better when she got up and walked around. She denies any cough or hemoptysis. She denies any fever or chills. She denies any change of exertional capability. She denies any change in her chronic superficial thrombophlebitis. She does admit to taking a daily aspirin. She has no other complaints at this time. No other modifying factors. She denies any history of pulmonary embolism in the past. She denies any history of cardiac disease, but does admit to tobacco use. She denies any family history of cardiac disease. Related Data Home Medications Medication Instructions Recorded Confirmed Mirena 1 ea INTRAUTERINE ONCE #1 implant 07/27/17 07/03/19 acetaminophen [Tylenol] 325 mg PO PRN tab-cap 07/27/17 07/03/19 ProAir RespiClick 2 puff IN PRN PRN 08/03/17 07/03/19 aspirin 325 mg PO DAILY 07/03/19 07/03/19 Allergies Allergy/AdvReac Type Severity Reaction Status Date / Time ibuprofen Allergy Unknown Skin Rash Unverified 07/03/19 10:06 General Stated Complaint: Chest/Rib JAYLON: 3 Review of Systems All systems reviewed & are unremarkable except as noted in HPI and below PFSH Social History Smoking/Tobacco Use Status: Current every day Tobacco Type: cigarettes Alcohol Intake: never Drug use: Never Substance use type: does not use Do you feel safe at home: Yes Do you feel safe in your relationship?: Yes Exam Narrative Exam Narrative: 1.Const: Well-nourished, Well-developed, appearing stated age 2.Eyes: PERRL, no conjunctival injection, and symmetrical lids. 3.ENT: Atraumatic external nose and ears. Moist MM. Neck: Symmetric, trachea midline, No thyromegaly. 4.CVS: +S1/S2, No murmurs or gallops. Peripheral pulses 2+ and equal in all extremities. Brisk capillary refill in all extremities. 5.RESP: Unlabored respiratory effort. Clear to auscultation bilaterally. No wheezes rales or rhonchi 6.GI: Soft, Nontender/Nondistended, No hepatosplenomegaly. No guarding or rebound. 7.MSK: Normocephalic/Atraumatic, Extremities w/o deformity or ttp No cyanosis or clubbing, Normal movement of all extremities. +1 pitting edema bilaterally, mild palpable slightly irritated superficial thrombophlebitis in various areas that are unchanged per patient. No significant posterior calf tenderness. Pulses intact, no evidence of significant erythema or warmth or evidence of cellulitis. 8.Skin: Warm, Dry. No rashes or lesions. 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 Sensation grossly intact, no focal neurologic deficits. 10.Psych: (AAO) x3. Appropriate mood and affect Course Vital Signs Vital signs: Vital Signs Temperature 36.7 C 07/03/19 10:02 Pulse 78 07/03/19 10:02 Respiratory Rate 25 H 07/03/19 10:02 Blood Pressure 151/79 H 07/03/19 10:02 Pulse Oximetry 100 07/03/19 10:02 Temperature 36.7 C 07/03/19 10:02 Temperature Source Temporal Artery Scan 07/03/19 10:02 Pulse 78 07/03/19 10:02 Respiratory Rate 25 H 07/03/19 10:02 Respiratory Effort Non-Labored 07/03/19 10:07 Respiratory Depth Normal 07/03/19 10:07 Respiratory Pattern Normal 07/03/19 10:07 Blood Pressure 151/79 H 07/03/19 10:02 Blood Pressure Position Sitting 07/03/19 10:02 Pulse Oximetry 100 07/03/19 10:02 Oxygen Delivery Method Room Air 07/03/19 10:02 Oxygen Flow Rate 0 07/03/19 10:02 Pain Level 2 07/03/19 10:07
[2019-07-03 10:36] LABS: Abs Immature Grans 0.03 k/cumm (0.0-0.09); Absolute Basophil Count 0.04 k/cumm (0.0-0.2); Absolute Lymphocyte Count 2.95 k/cumm (1.2-3.4); Absolute Monocyte Count 0.91 k/cumm (0.11-0.7); Absolute Neutrophil Count 5.57 k/cumm (1.2-6.7); Basophils % 0.4; Eosinophils % 3.1; HCT 44.4 % (36.0-46.0); HGB 14.6 g/dL (12.0-15.5); Immature Grans % 0.3; Lymphocytes % 30.1; Mean Corp. HGB Concentration 32.9 g/dL (32.0-36.0); Mean Corpuscular Hemoglobin 30.2 pg (27.0-33.0); Mean Corpuscular Volume 91.9 fL (80-95); Mean Platelet Volume 9.6 fL (8.0-11.0); Monocytes % 9.3; Neutrophils % 56.8; Platelet Count 367 x1000/uL (130-400); RBC 4.83 m/cumm (4.00-5.20); RBC Distribution Width 14.6 % (11.7-14.6)
[2019-07-03 10:50] LABS: Prothrombin Time 10.2 sec (9.3-11.0)
[2019-07-03 11:09] LABS: ALT 34 U/L (14-59); AST 26 U/L (15-37); Albumin 3.3 g/dL (3.4-5.0); Alkaline Phosphatase 91 U/L (46-116); BUN 15 mg/dL (7-18); Bilirubin, Total 0.3 mg/dL (0.2-1.0); CREATININE 0.68 mg/dL (0.55-1.02); Calcium 8.9 mg/dL (8.5-10.1); Chloride 107 mmol/L (98-107); Glucose 94 mg/dL (74-106); NT-proBNP 365 pg/mL (<300); Potassium 3.8 mmol/L (3.5-5.1); Sodium 144 mmol/L (136-145); Total Protein 7.5 g/dL (6.4-8.2)
[2019-07-03 11:10] LABS: Troponin I < 0.05 ng/Ml (<0.06)
[2019-07-03 11:13] LABS: D-Dimer 472 ng/mlFEU (<500)
--- NOTE | 2019-07-03 11:49 | DI.RAD_ITS ---
EXAM: XR CHEST 2V PA LATERAL INDICATION: central chest pain. COMPARISON: CHEST 2 VIEWS PA,LAT from 08/03/2017 TECHNIQUE: 2D digital imaging was performed. FINDINGS: The heart size is within normal limits. No infiltrate, effusion or pneumothorax is seen. There are mild degenerative changes in the thoracic spine. No compression fractures are seen. IMPRESSION: No acute abnormality.
== END 2019-07-03 12:15 | disposition home or self-care (01) ==
PROVIDERS: Emergency Provider Student in an Organized Health Care Education/Training Program; PCP Nurse Practitioner Family
DX: R07.81 Pleurodynia (principal); R06.02 Shortness of breath; F17.210 Nicotine dependence, cigarettes, uncomplicated; Z86.718 Personal history of other venous thrombosis and embolism; Z79.3 Long term (current) use of hormonal contraceptives
CPT/HCPCS: 36415; 80053; 93005; 99285; 71046; 83880; 84484; 85025; 85379; 85610; 85730; 93010; 99284

== ENCOUNTER 2019-08-14 00:46 | Outpatient (CLI) | payer OTHER, SELFPAY ==
--- NOTE | 2019-08-14 14:08 | DI.US_ITS ---
EXAM: US LOWER EXTREMITY VENOUS RT CLINICAL HISTORY: SUPERFICIAL THROMBOPHLEBITIS I80.9 TECHNIQUE: Ultrasound performed using standard protocol. COMPARISON: US LOWER EXTREMITY VENOUS RT FROM 05/18/2019 FINDINGS: Dilated superficial veins in the medial calf again contain thrombus. The proximal saphenous vein sterling ears free of thrombus. The deep venous system is free of thrombus. No Schmid's cyst is seen. IMPRESSION: No significant change in superficial venous thrombosis in the medial calf. No deep venous thrombosis .
== END 2019-08-14 01:06 ==
PROVIDERS: PCP Nurse Practitioner Family; Visit Provider Nurse Practitioner Family
DX: I80.01 Phlebitis and thrombophlebitis of superficial vessels of right lower extremity (principal)
CPT/HCPCS: 93971

== ENCOUNTER 2019-08-28 13:09 | Outpatient (REF) | payer OTHER, SELFPAY ==
[2019-08-28 14:07] LABS: HCT 45.9 % (36.0-46.0); HGB 15.3 g/dL (12.0-15.5); Mean Corp. HGB Concentration 33.3 g/dL (32.0-36.0); Mean Corpuscular Hemoglobin 30.5 pg (27.0-33.0); Mean Corpuscular Volume 91.6 fL (80-95); Mean Platelet Volume 10.5 fL (8.0-11.0); Platelet Count 394 x1000/uL (130-400); RBC 5.01 m/cumm (4.00-5.20); RBC Distribution Width 14.5 % (11.7-14.6); White Blood Cell Count 9.37 k/cumm (4.4-10.8)
[2019-08-28 14:30] LABS: ALT 27 U/L (14-59); AST 13 U/L (15-37); Albumin 3.4 g/dL (3.4-5.0); Alkaline Phosphatase 99 U/L (46-116); Anion Gap 11.1 mmol/L (3-11); BUN 12 mg/dL (7-18); Bilirubin, Total 0.4 mg/dL (0.2-1.0); CO2 26.9 mmol/L (21.0-32.0); CREATININE 0.75 mg/dL (0.55-1.02); Calcium 8.9 mg/dL (8.5-10.1); Calculated LDL 138 mg/dL (<100); Chloride 106 mmol/L (98-107); Cholesterol 194 mg/dL (<200); Glucose 112 mg/dL (74-106); HDL Cholesterol 40 mg/dL (40-60); Potassium 3.9 mmol/L (3.5-5.1); Sodium 144 mmol/L (136-145); TSH (W/Ref FT4) 1.08 uIU/mL (0.36-3.74); Total Protein 6.9 g/dL (6.4-8.2); Triglyceride 81 mg/dL (<150)
== END 2019-08-28 13:29 ==
LOC: NCHCN 13:09
PROVIDERS: PCP Nurse Practitioner Family; Visit Provider Nurse Practitioner Family
DX: R63.5 Abnormal weight gain (principal); R53.83 Other fatigue
CPT/HCPCS: 80053; 80061; 85027; 84443

== ENCOUNTER 2019-09-13 02:43 | Outpatient (CLI) | payer OTHER, SELFPAY ==
--- NOTE | 2019-09-13 | DI.MAMMO_ITS ---
EXAM: MAMMO SCREENING CLINICAL HISTORY: SCREENING FOR BREAST CANCER Z12.39 TECHNIQUE: Mammograms were interpreted according to the usual protocol including computer analysis w [employer] CAD system, tomosynthesis and C-view imaging. COMPARISON: 2009 through 2015 FINDINGS: The breasts are composed of mainly fatty density , Breast Density category A. No suspicious masses or suspicious microcalcifications are seen. No skin thickening or abnormal axillary lymph nodes are seen. There has been no significant change from prior exams. IMPRESSION: BIRADS Category 1, negative mammogram. Yearly screening mammography is recommended. Breast density category A.
== END 2019-09-13 03:03 ==
PROVIDERS: PCP Nurse Practitioner Family; Visit Provider Nurse Practitioner Family
DX: Z12.31 Encounter for screening mammogram for malignant neoplasm of breast (principal)
CPT/HCPCS: 77063; 77067

== ENCOUNTER 2019-09-26 01:27 | Outpatient (CLI) | payer OTHER, SELFPAY ==
--- NOTE | 2019-09-26 | DI.US_ITS ---
EXAM: US LOWER EXTREMITY VENOUS RT CLINICAL HISTORY: SUPERFICIAL THROMBOPHLEBITIS, I80.9, EVALUATE FOR EXTENSION. TECHNIQUE: Right lower extremity venous ultrasound performed using grayscale, color-flow, and spectr al Doppler analysis. COMPARISON: US LOWER EXTREMITY VENOUS RT from 08/14/2019 FINDINGS: The right common femoral, femoral and popliteal veins demonstrate normal compressibility, augmentatio n, and color Doppler. The posterior tibial veins are patent.Again noted is superficial venous thrombo sis in the calf region. There is no extension into the deep venous system. IMPRESSION: No change in superficial calf vein thrombus. No evidence of extension into the deep venous system. No DVT. DATA REPOSITORY:
== END 2019-09-26 01:47 ==
PROVIDERS: PCP Nurse Practitioner Family; Visit Provider Nurse Practitioner Family
DX: I82.811 Embolism and thrombosis of superficial veins of right lower extremity (principal)
CPT/HCPCS: 93971

== ENCOUNTER 2019-11-22 14:49 | Outpatient (REF) | payer OTHER, SELFPAY ==
[2019-11-24 15:54] LABS: COVID-19 RT-PCR UVMMC Result Negative (Negative)
== END 2019-11-22 15:09 ==
LOC: NCHCN 14:49
PROVIDERS: PCP Nurse Practitioner Family; Visit Provider Nurse Practitioner Family
DX: R19.7 Diarrhea, unspecified (principal)
CPT/HCPCS: U0003

== ENCOUNTER 2019-12-04 08:33 | Outpatient (CLI) | payer OTHER, SELFPAY ==
[2019-12-05 18:34] LABS: COVID-19 RT-PCR Result NEGATIVE (Negative)
== END 2019-12-04 08:53 ==
PROVIDERS: PCP Nurse Practitioner Family; Visit Provider Surgery
DX: Z11.59 Encounter for screening for other viral diseases (principal); Z01.818 Encounter for other preprocedural examination
CPT/HCPCS: U0003

== ENCOUNTER 2019-12-07 06:58 | Day surgery (SDC) | payer OTHER, SELFPAY ==
[2019-12-07 07:17] VITALS: BP 126/86; PULSE 87; RESP 20; TEMP 36.4; O2SAT 95
[2019-12-07] MEDS: Lactated Ringers 1,000 ML 80 ML IV ×2 (07:30→08:55)
--- NOTE | 2019-12-07 08:14 | PDOC.DSDIS_ITS ---
Discharge Plan Disposition Patient Disposition: HOME Condition: Good Discharge Details Reason For Visit: Colonoscopy Attending Provider: Dang Singh Primary Care Provider: Rubens Lee Home Meds and New Rx's Prescriptions: Continued gabapentin 100 mg capsule 100 mg PO QHS RF: 0 Flovent HFA 110 mcg/actuation HFA aerosol inhaler 2 puff IH BID RF: 0 furosemide 20 mg tablet 20 mg PO DAILY RF: 0 bisacodyl [Dulcolax (bisacodyl)] 5 mg tablet,delayed release (DR/EC) 15 mg PO PRN RF: 0 Mirena 1 EACH intrauterine device 1 ea Intrauterine ONCE Qty: 1 RF: 0 acetaminophen [Tylenol] 325 MG tablet 325 mg PO PRN RF: 0 ProAir RespiClick 90 MCG aerosol powdr breath activated 2 puff IN PRN PRNRF: 0 aspirin 325 mg Tablet 325 mg PO DAILY RF: 0 Discontinued polyethylene glycol 3350 17 gram/dose powder 238 g PO ONCE Qty: 238 RF: 0 bisacodyl [Dulcolax (bisacodyl)] 5 mg tablet,delayed release (DR/EC) 5 mg PO ONCE Qty: 4 RF: 0 Discharge Instructions Additional Instructions: Findings: Two small polyps were removed. Diverticulosis was present. Follow up: My office will contact you with biopsy results. It is anticipated you will need a colonoscopy again in 5 years. Make sure to take in 30 grams of fiber daily and drink enough water. It is okay to use a daily stool softener or laxative if needed. Please call if you develop: fevers >101.5 Nausea or Vomiting Abdominal pain that is not transient DAY SURGERY UNIT POST COLONOSCOPY INSTRUCTIONS 1. Because there will be medication in your system for the next 24 hours, you may feel a little sleepy. Your coordination will be affected. Therefore: a. Do not drive or operate dangerous equipment for 24 hours. b. Do not drink alcohol beverages for 24 hours (not even beer). c. Plan to go home and rest for the day. 2. Generally there are no restrictions on your activity after a day or so has gone by, but you may feel a bit fatigued for a few days. 3 After you arrive home you may have a light meal and return to a normal diet as you can tolerate it without feeling sick to your stomach. 4. After surgery, you may feel pain or discomfort. This should be only transient , but if it persists please contact your doctor. 5. If there are any questions regarding the findings of your procedure, please feel free to contact your doctor. 6. If you are unable to contact your doctor with a problem, contact the hospital at [phone]. 7. Continue all your regular medications unless directed otherwise. I understand the above instructions and have no questions. Signature of Patient or Responsible Adult Escort Date/Time Name of Responsible Adult Escort Signature of Nurse Date/Time Activity:: Activity as Tolerated Diet:: As Tolerated Discharge Orders Discharge Orders: Discharge Order (Routine); Ordered 12/07/19 Ordered By: Dang Singh DS: Diagnosis Discharge Diagnosis (1) Colon polyps: Status: Acute (2) Diverticulosis: Status: Acute
--- NOTE | 2019-12-07 08:25 | W.COLOREPORT ---
Date of service: 12/07/19 Time of Service: 09:00 Colonoscopy Report Date of procedure: 12/07/19 Pre-op diagnosis general: History of colon polyps Post-op diagnosis procedure note: other (Colon polyps, diverticulosis) Procedure: Colonoscopy with biopsy Surgeon: Dang Singh Anesthesia proc note operative: MAC Disposition: same day Indications: This 54-year-old woman presents for routine colonoscopy. She had a large ascending colon polyp removed in 2017 and presents for follow-up. She has noted increased constipation of the last few months and needs to take laxatives to have a bowel movement about every 3 days. Procedure Description: The patient was placed in the left Fleming position. Propofol was titrated to sedation. Digital rectal examination revealed no abnormalities. The scope was advanced to the cecum without difficulty. The ileocecal valve and appendiceal orifice were clearly identified. The prep was good. The scope was slowly withdrawn over the course of greater than 6 minutes with no abnormalities seen in the ascending, transverse, descending colon. In the proximal sigmoid colon there is a less than 1 cm polyp that was removed with the cold forceps. This appears to be hyperplastic. There is a similar polyp at 20 cm that was also removed with cold forceps. Mild diverticulosis was seen in the sigmoid colon. Retroflexed view in the rectum showed no abnormalities. The patient tolerated the procedure well and was stable to recovery. She was advised to increase her fiber intake and activity. If needed a daily stool softener or laxative can be utilized. Plan for follow up colonoscopy in 5 years pending biopsy results.
--- NOTE | 2019-12-07 09:00 | BOWEL_PTH ---
PATIENT: Disha Alatorre LOC: [facility] U#:[id number] AGE/SX: 54/F ROOM: RE12/07/[address]: Dang Singh MD : 1965 BED: DIS: 12/07/2019 SPEC #: [id number] RECD: 12/07/19 11:52 STATUS: LINETTE REQ #: [id number] ALEK: 12/07/19 09:[address]: Dang Singh DEPT: Surgical Specimen RECD BY: Ariadna Marr ENTERED: 12/07/19 11:52 SP TYPE: Bowel OTHR DR: Rubens Lee Tissues: 1 - BIOPSY BOWEL 2 - BIOPSY BOWEL Procedures: GROSS AND MICRO LEVEL 4 Comments: [id number]
[2019-12-07 09:45] VITALS: BP 122/76; PULSE 63; RESP 20; TEMP 36.1; O2SAT 95
== END 2019-12-07 10:20 | disposition home or self-care (01) ==
PROVIDERS: PCP Nurse Practitioner Family; Visit Provider Surgery
PROC: 0DJD8ZZ Inspection of Lower Intestinal Tract, Via Natural or Artificial Opening Endoscopic (ICD-10-PCS; CPT 45378; principal; 2019-12-07 08:15)
DX: Z12.11 Encounter for screening for malignant neoplasm of colon (principal); Z86.010 Personal history of colon polyps; D12.5 Benign neoplasm of sigmoid colon; K63.5 Polyp of colon; K59.00 Constipation, unspecified
CPT/HCPCS: 45380; 88305; J2001; J2704

== ENCOUNTER 2020-01-29 12:42 | Outpatient (CLI) | payer OTHER, SELFPAY ==
--- NOTE | 2020-01-29 14:00 | DI.US_ITS ---
EXAM: US LOWER EXTREMITY VENOUS RT CLINICAL HISTORY: RT CALF PAIN, M79.661,DVT,I82.461. TECHNIQUE: Ultrasound performed using standard protocol. COMPARISON: US US LOWER EXTREMITY VENOUS RT from 09/26/2019 FINDINGS: Duplex venous ultrasound was performed according to the usual protocol. The deep veins are freely com pressible throughout and there is normal flow augmentation with manual calf compression. 2D and Doppl er evaluation are unremarkable. IMPRESSION: No evidence of deep venous thrombosis of the right lower extremity DATA REPOSITORY:
== END 2020-01-29 13:02 ==
PROVIDERS: PCP Nurse Practitioner Family; Visit Provider Physician Assistant
DX: M79.661 Pain in right lower leg (principal)
CPT/HCPCS: 93971

== ENCOUNTER 2020-02-11 16:50 | Outpatient (REF) | payer OTHER, SELFPAY ==
--- NOTE | 2020-02-11 08:30 | SKI_PTH ---
PATIENT: Disha Alatorre LOC: NCN #:[id number] AGE/SX: 54/F ROOM: RE02/11/[address]: Rubens Lee : 1965 BED: DIS: 02/11/2020 SPEC #: [id number] RECD: 02/11/20 18:07 STATUS: LINETTE REManfred #: [id number] ALEK: 02/11/20 08:[address]: Rubens Lee DEPT: Surgical Specimen RECD BY: Ariadna Marr Tissues: 1 - SKIN BIOPSY(SHAVE/PUNCH) Procedures: SKIN LEVEL 4 Comments: [id number]
== END 2020-02-11 17:10 ==
LOC: NCHCN 16:50
PROVIDERS: PCP Nurse Practitioner Family; Visit Provider Nurse Practitioner Family
DX: L82.1 Other seborrheic keratosis (principal)
CPT/HCPCS: 87070; 88305

== ENCOUNTER 2020-10-08 21:44 | Outpatient (REF) | payer OTHER, SELFPAY ==
[2020-10-10 12:33] LABS: COVID-19 RT-PCR UVMMC Result Negative (Negative)
== END 2020-10-08 21:45 | disposition home or self-care (01) ==
LOC: NCHCN 21:44
PROVIDERS: PCP Nurse Practitioner Family; Visit Provider Family Medicine
DX: Z20.822 Contact with and (suspected) exposure to COVID-19 (principal); J06.9 Acute upper respiratory infection, unspecified
CPT/HCPCS: U0003

== ENCOUNTER 2021-04-07 17:18 | Outpatient (REF) | payer OTHER, SELFPAY ==
[2021-04-09 12:10] LABS: HSV 1 DNA Result Positive (Negative); HSV 2 DNA Result Negative (Negative); Varicella Zoster DNA Result Negative (Negative)
== END 2021-04-07 17:19 | disposition home or self-care (01) ==
LOC: LBN 17:18
PROVIDERS: PCP Nurse Practitioner Family; Visit Provider Nurse Practitioner Family
DX: R21 Rash and other nonspecific skin eruption (principal)
CPT/HCPCS: 87529; 87798; 87070; 87205

== ENCOUNTER 2022-03-31 20:57 | Outpatient (REF) | payer MEDICAID, SELFPAY ==
[2022-04-02 10:36] LABS: COVID-19 RT-PCR UVMMC Result Negative (Negative)
== END 2022-03-31 20:58 | disposition home or self-care (01) ==
LOC: LBN 20:57
PROVIDERS: Visit Provider Physician Assistant Medical
DX: R09.89 Other specified symptoms and signs involving the circulatory and respiratory systems (principal); Z20.822 Contact with and (suspected) exposure to COVID-19
CPT/HCPCS: U0003

== ENCOUNTER 2022-06-07 11:53 | Outpatient (REF) | payer MEDICAID, SELFPAY ==
[2022-06-07 19:37] LABS: ALT 39 U/L (14-59); AST 18 U/L (15-37); Albumin 3.3 g/dL (3.4-5.0); Alkaline Phosphatase 88 U/L (46-116); Anion Gap 1.5 mmol/L (3-11); BUN 13 mg/dL (7-18); Bilirubin, Total 0.3 mg/dL (0.2-1.0); CO2 32.5 mmol/L (21.0-32.0); CREATININE 0.8 mg/dL (0.55-1.02); Calcium 8.9 mg/dL (8.5-10.1); Calculated LDL 103 mg/dL (<100); Chloride 105 mmol/L (98-107); Cholesterol 168 mg/dL (<200); Estimated GFR 86.42 (mL/min/1.73m2); Glucose 83 mg/dL (74-106); HDL Cholesterol 48 mg/dL (40-60); Potassium 4.2 mmol/L (3.5-5.1); Sodium 139 mmol/L (136-145); Total Protein 7.4 g/dL (6.4-8.2); Triglyceride 87 mg/dL (<150)
== END 2022-06-07 11:54 | disposition home or self-care (01) ==
LOC: NCHCN 11:53
PROVIDERS: Visit Provider Nurse Practitioner Family
DX: R73.9 Hyperglycemia, unspecified (principal); E66.01 Morbid (severe) obesity due to excess calories
CPT/HCPCS: 80053; 80061; 83036

== ENCOUNTER 2022-07-26 02:36 | Outpatient (CLI) | payer MEDICAID, SELFPAY ==
--- NOTE | 2022-07-26 | DI.MAMMO_ITS ---
Exam(s) MAMMO SCREENING EXAM: MAMMO SCREENING CLINICAL HISTORY: SCREENING FOR BREAST CANCER Z12.39 TECHNIQUE: Mammograms were interpreted according to the usual protocol including computer analysis w [employer] CAD system, tomosynthesis and C-view imaging. COMPARISON: 2015 through 2019 FINDINGS: The breasts are composed of mainly fatty density , Breast Density category A. No suspicious masses or suspicious microcalcifications are seen. No skin thickening or abnormal axillary lymph nodes are seen. There has been no significant change from prior exams. IMPRESSION: BI-RADS Category 1, Negative mammogram Yearly screening mammography is recommended. Breast Density - Category A, fatty density. A negative radiographic report should not delay biopsy if a dominant or clinically suspicious mass is present. Up to ten percent of cancers are not identified on mammography. A negative report may reinforce clinical impression. Adenosis and dense breasts may obscure an underlying neoplasm. False positive reports average 6 to 10%. Patient will receive a letter notifying them of these results.
--- NOTE | 2022-07-26 12:52 | DI.CTLCSR_ITS ---
Exam(s) CT CHEST LUNG CANCER SCREEN EXAM: CT CHEST LUNG CANCER SCREEN CLINICAL HISTORY: SMOKER F17.210, SCREENING FOR LUNG CANCER TECHNIQUE: Imaging Protocol: Axial computed tomography images with coronal and sagittal reformatted images were created and reviewed. Low dose screening protocol. COMPARISON: CT CHEST FOR PULMONARY EMBOLUS from 02/07/2017 FINDINGS: Tracheobronchial tree: No bronchiectasis or mucus plugging.. Mediastinum and Suzette: No dominant adenopathy or fluid collection. Pulmonary parenchyma: No consolidation or dominant measurable mass. No visible emphysematous changes. Lung Nodules: Calcified granuloma left lower lobe. Pleura: No effusion. No pneumothorax. Heart: The heart is not dilated. No coronary artery calcifications are seen. Aorta: Thoracic aorta non-dilated. Upper abdomen: Unremarkable. Bones: Degenerative disc changes in the thoracic spine. Soft Tissues: Unremarkable. IMPRESSION: No suspicious pulmonary nodules. Lung RADS Cat 2 - Benign Appearance / Behavior: Nodules with a very low likelihood of becoming a clin ically active cancer due to size or lack of growth Lung-RADS 1.0 CATEGORIES: Category 0 - Prior chest CT exam(s) being located for comparison. Category 1 - Annual screening in 12 months. No nodules or definitely benign nodules. Category 2 - Annual screening in 12 months. Benign appearance. Nodules with low likelihood of becomin g active cancer. Category 3 - 6-month follow-up. Probably benign. Short-term follow-up suggested. Nodules with low lik elihood of becoming active cancer. Category 4A - 3-month follow-up and CT/PET if >8 mm in size. Suspicious finding. Findings which requi re additional testing. Category 4B - Findings which require additional testing and tissue sampling. Category 4X - Category 3 or 4 nodules with additional features or imaging findings that increases the suspicion of malignancy. Modifier S- Potentially clinically significant findings (non lung cancer) RADIATION DOSE DELIVERED: 95.37mGy.cm Total DLP DATA REPOSITORY: All CT scans at this facility are submitted to the National Radiology Data Registry (NRDR) Dose Index Registry (DIR) with the [employer] (A[employer]). RADIATION OPTIMIZATION: All CT scans at this facility use at least one of these dose optimization te chniques: automated exposure control; mA and/or kV adjustment per patient size (includes targeted exa ms where dose is matched to clinical indication); or iterative reconstruction.
== END 2022-07-26 02:56 ==
LOC: DI 02:37
PROVIDERS: Visit Provider Nurse Practitioner Family
DX: Z12.2 Encounter for screening for malignant neoplasm of respiratory organs (principal); F17.210 Nicotine dependence, cigarettes, uncomplicated; Z12.31 Encounter for screening mammogram for malignant neoplasm of breast
CPT/HCPCS: 71271; 77063; 77067

== ENCOUNTER → 2023-08-08 03:04 | Outpatient (CLI) | payer MEDICAID, SELFPAY ==
--- NOTE | 2023-08-08 | DI.MAMMO_ITS ---
Exam(s) MAMMO SCREENING EXAM: MAMMO SCREENING CLINICAL HISTORY: SCREENING FOR BREAST CANCER Z12.39 TECHNIQUE: Mammograms were interpreted according to the usual protocol including computer analysis w [employer] CAD system, tomosynthesis and C-view imaging. COMPARISON: 2015 through 2022 FINDINGS: The breasts are composed of mainly fatty density , Breast Density category A. No suspicious masses or suspicious microcalcifications are seen. No skin thickening or abnormal axillary lymph nodes are seen. There has been no significant change from prior exams. IMPRESSION: BI-RADS Category 1, Negative mammogram Yearly screening mammography is recommended. Breast Density - Category A, fatty density. A negative radiographic report should not delay biopsy if a dominant or clinically suspicious mass is present. Up to ten percent of cancers are not identified on mammography. A negative report may reinforce clinical impression. Adenosis and dense breasts may obscure an underlying neoplasm. False positive reports average 6 to 10%. Patient will receive a letter notifying them of these results.
--- NOTE | 2023-08-08 15:38 | DI.CTLCSR_ITS ---
Exam(s) CT CHEST LUNG CANCER SCREEN EXAM: CT CHEST LUNG CANCER SCREEN CLINICAL HISTORY: NICOTINE DEPENDENCE F17.210 SCREENING FOR LUNG CANCER TECHNIQUE: Imaging Protocol: Axial computed tomography images with coronal and sagittal reformatted images were created and reviewed. Low dose screening protocol. COMPARISON: CT CT CHEST LUNG CANCER SCREEN from 07/26/2022 FINDINGS: Tracheobronchial tree: No bronchiectasis or mucus plugging.. Mediastinum and Suzette: No dominant adenopathy or fluid collection. Pulmonary parenchyma: No consolidation or dominant measurable mass. Mild emphysematous changes. Lung Nodules: Calcified granuloma left lower lobe. No new nodules. Pleura: No effusion. No pneumothorax. Heart: The heart is not dilated. No coronary artery calcifications are seen. Aorta: Thoracic aorta non-dilated. Upper abdomen: Unremarkable. Bones: Degenerative changes. Soft Tissues: Unremarkable. IMPRESSION: No suspicious pulmonary nodules. Lung RADS Cat 1 - Negative: No nodules and definitely benign nodules Lung-RADS 1.0 CATEGORIES: Category 0 - Prior chest CT exam(s) being located for comparison. Category 1 - Annual screening in 12 months. No nodules or definitely benign nodules. Category 2 - Annual screening in 12 months. Benign appearance. Nodules with low likelihood of becomin g active cancer. Category 3 - 6-month follow-up. Probably benign. Short-term follow-up suggested. Nodules with low lik elihood of becoming active cancer. Category 4A - 3-month follow-up and CT/PET if >8 mm in size. Suspicious finding. Findings which requi re additional testing. Category 4B - Findings which require additional testing and tissue sampling. Category 4X - Category 3 or 4 nodules with additional features or imaging findings that increases the suspicion of malignancy. Modifier S- Potentially clinically significant findings (non lung cancer) RADIATION DOSE DELIVERED: 87.48mGy.cm Total DLP DATA REPOSITORY: All CT scans at this facility are submitted to the National Radiology Data Registry (NRDR) Dose Index Registry (DIR) with the [employer] (ACR). RADIATION OPTIMIZATION: All CT scans at this facility use at least one of these dose optimization te chniques: automated exposure control; mA and/or kV adjustment per patient size (includes targeted exa ms where dose is matched to clinical indication); or iterative reconstruction.
== END ==
PROVIDERS: Visit Provider Nurse Practitioner Family
DX: Z12.2 Encounter for screening for malignant neoplasm of respiratory organs (principal); F17.210 Nicotine dependence, cigarettes, uncomplicated; Z12.31 Encounter for screening mammogram for malignant neoplasm of breast
CPT/HCPCS: 71271; 77063; 77067

== ENCOUNTER 2023-08-31 11:07 | Emergency (ER) | payer MEDICAID, SELFPAY ==
[2023-08-31 11:09] VITALS: BP 168/93; PULSE 84; RESP 22; TEMP 37.6; O2SAT 97
--- NOTE | 2023-08-31 11:27 | ED.GENADUL_ITS ---
HPI General Date/Time Provider Initiated Documentation: 08/31/23 11:27 . HPI Narrative: 58-year-old female presents with right tonsil pain and swelling which started approximately 1:00 this morning and has become worse since that time. Denies any stiff neck or fever, denies known sick contacts. Strep and COVID were negative at patient's PCP reportedly. Denies history of diabetes. Denies globus sensation. Related Data Home Medications Medication Instructions Recorded Confirmed acetaminophen 325 mg tablet 325 mg PO PRN 07/27/17 08/31/23 (Tylenol) albuterol sulfate 90 mcg/actuation 2 puff IN PRN PRN 08/03/17 08/31/23 breath activated powder inhaler (ProAir RespiClick) aspirin 325 mg tablet 325 mg PO DAILY 07/03/19 08/31/23 bisacodyl 5 mg tablet,delayed 15 mg PO PRN 11/26/19 08/31/23 release (Dulcolax (bisacodyl)) fluticasone propionate 110 2 puff inhalation BID 11/26/19 08/31/23 mcg/actuation HFA aerosol inhaler (Flovent HFA) clindamycin HCl 150 mg capsule 450 mg (3 x 150 mg) PO Q8H #63 caps 08/31/23 dexamethasone 4 mg tablet 4 mg PO DAILY #5 tabs 08/31/23 Previous Rx's Medication Instructions Recorded clindamycin HCl 150 mg capsule 450 mg (3 x 150 mg) PO Q8H #63 caps 08/31/23 dexamethasone 4 mg tablet 4 mg PO DAILY #5 tabs 08/31/23 Allergies Allergy/AdvReac Type Severity Reaction Status Date / Time ibuprofen Allergy Unknown Skin Rash Unverified 12/07/19 07:12 General Stated Complaint: DentalOral JAYLON: 3 Course Vital Signs Vital signs: Vital Signs Temperature 37.6 C H 08/31/23 11:09 Pulse 84 08/31/23 11:09 Respiratory Rate 22 08/31/23 11:09 Blood Pressure 168/93 H 08/31/23 11:09 Pulse Oximetry 97 08/31/23 11:09 Temperature 37.6 C H 08/31/23 11:09 Pulse 84 08/31/23 11:09 Respiratory Rate 22 08/31/23 11:09 Blood Pressure 168/93 H 08/31/23 11:09 Blood Pressure Position Sitting 08/31/23 11:09 Pulse Oximetry 97 08/31/23 11:09 Pain Level 2 08/31/23 11:09 Medical Decision Making This 58-year-old female presents with right tonsillar swelling and pain Uvula midline, oropharynx patent, no evidence of peritonsillar or retropharyngeal abscess Given Decadron, offered opiate analgesia, patient was declined Did initiate antibiotics as patient's tonsils quite swollen and so I do not see an obvious abscess, this will hopefully improve symptoms and prevent abscess formation Recheck in 24 to 48 hours recommended without symptomatic improvement Maintaining secretions, no trismus, no obvious evidence of abscess, return precautions reviewed and patient expressed understanding Quality:SDOH Health Related Social Needs: No Data to Display PFSH All Active Problems (Updated 08/31/23 @ 11:28 by BHAVESH Bass) Acute tonsillitis (Acute) Diverticulosis (Acute) Colon polyps (Acute) Adenoma determined by colorectal biopsy (Acute 10/25/16) sessile serrated adenoma of ascending colon Benign neoplasm of hand (Acute 10/22/13) Dysphonia (Acute 09/26/13) Neoplasm of skin (Acute 09/26/13) Smoker (Acute 09/26/13) Peripheral polyneuropathy (Acute 08/11/17) Constipation (Acute) Pre-op evaluation (Acute) Medical History (Updated 08/31/23 @ 11:28 by BHAVESH Bass) IUD (intrauterine device) in place Hammertoe of right foot Bursitis of right shoulder [place] [facility] Onychomycosis Knee pain, right Superficial thrombophlebitis Fatigue Constipation Obesity, Class III, BMI 40-49.9 (morbid obesity) Osteoarthritis Surgical History (Updated 12/07/19 @ 09:10 by Dang Singh MD) Excision, Skin Mass Colonoscopy - MAC (10/25/16) 12/07/19 Family History Mother Cervical cancer Social History Smoking/Tobacco Use Status: Current every day Tobacco Type: cigarettes Years smoked: 35 Smoking risk assessment performed?: Yes Alcohol Intake: never Drug use: Never Substance use type: does not use Details: pt. reports she smokes 10-20 cigarettes/day Housing: house Current gender identity: female Do you feel safe at home: Yes Do you feel safe in your relationship?: Yes Discharge Plan Disposition Patient Disposition: Home Condition: Stable Discharge Details Clinical Impression: Acute tonsillitis Primary Care Provider: Ale Jenkins ED Provider: Ariadna Kim Home Meds and New Rx's Prescriptions: New clindamycin HCl 150 mg capsule 450 mg PO Q8H Qty: 63 0RF dexamethasone 4 mg tablet 4 mg PO DAILY Qty: 5 0RF Continued fluticasone propionate [Flovent HFA] 110 mcg/actuation HFA aerosol inhaler 2 puff IH BID bisacodyl [Dulcolax (bisacodyl)] 5 mg tablet,delayed release (DR/EC) 15 mg PO PRN acetaminophen [Tylenol] 325 MG tablet 325 mg PO PRN ProAir RespiClick 90 MCG aerosol powdr breath activated 2 puff IN PRN PRN aspirin 325 mg Tablet 325 mg PO DAILY Discharge Instructions Instructions: Pharyngitis (ED) Additional Instructions: Take the antibiotic as prescribed, probiotic while you take the antibiotic Take the steroid as prescribed, you received a dose for today already Take Tylenol 650 to 1 g every 4-6 hours, do not exceed 4 g daily Popsicles, Jell-O, soup, should you have new or worsening complaints, please return for reassessment Referrals: Ale Jenkins [Primary Care Provider] -
[2023-08-31] MEDS: Acetaminophen 325 MG TAB 650 MG PO (11:43)
[2023-08-31] MEDS: Dexamethasone 10 MG/ML VIAL PO (11:43)
[2023-08-31 11:47] VITALS: BP 171/96; PULSE 81; RESP 22; TEMP 37.5; O2SAT 96
== END 2023-08-31 11:52 | disposition home or self-care (01) ==
LOC: ER 11:30
PROVIDERS: Emergency Provider Physician Assistant; PCP Nurse Practitioner Family
DX: J03.90 Acute tonsillitis, unspecified (principal); R07.0 Pain in throat
CPT/HCPCS: 99283; J1100

== ENCOUNTER 2023-09-06 18:41 | Outpatient (REF) | payer MEDICAID, SELFPAY ==
--- NOTE | 2023-09-06 13:50 | SKI_PTH ---
PATIENT: Disha Alatorre LOC: NCN #:[id number] AGE/SX: 58/F ROOM: RE09/06/[address]: Amy Jenkins : 1965 BED: DIS: 09/06/2023 SPEC #: [id number] RECD: 09/06/23 18:43 STATUS: LINETTE REManfred #: [id number] ALEK: 09/06/23 13:[address] RECD BY: Ariadna Marr Tissues: 1 - SKIN BIOPSY(SHAVE/PUNCH) Procedures: SKIN LEVEL 4 Comments: [id number]
== END 2023-09-06 18:42 | disposition home or self-care (01) ==
LOC: NCHCN 18:41
PROVIDERS: PCP Nurse Practitioner Family; Visit Provider Nurse Practitioner Family
DX: D22.61 Melanocytic nevi of right upper limb, including shoulder (principal); L81.8 Other specified disorders of pigmentation
CPT/HCPCS: 88305

== ENCOUNTER 2024-02-28 21:47 | Outpatient (REF) | payer MEDICAID, SELFPAY ==
[2024-02-28 19:23] LABS: Anion Gap 9.8 mmol/L (3-11); BUN 13 mg/dL (7-18); CO2 26.2 mmol/L (21.0-32.0); CREATININE 0.9 mg/dL (0.55-1.02); Calcium 9.1 mg/dL (8.5-10.1); Chloride 107 mmol/L (98-107); Estimated GFR 74.57 (mL/min/1.73m2); Glucose 103 mg/dL (74-106); Potassium 4.2 mmol/L (3.5-5.1); Sodium 143 mmol/L (136-145)
== END 2024-02-28 21:48 | disposition home or self-care (01) ==
LOC: NCHCN 21:47
PROVIDERS: PCP Nurse Practitioner Family; Visit Provider Nurse Practitioner Family
DX: R73.03 Prediabetes (principal)
CPT/HCPCS: 80048

== ENCOUNTER 2024-05-04 11:26 | Emergency (ER) | payer MEDICAID, SELFPAY ==
[2024-05-04 11:27] VITALS: BP 131/82; PULSE 77; RESP 17; TEMP 36.4; O2SAT 95
--- NOTE | 2024-05-04 12:01 | DI.RAD_ITS ---
Exam(s) XR KNEE LT 3V AP,LAT,NIRANJAN EXAM: XR KNEE LT 3V AP,LAT,NIRANJAN CLINICAL HISTORY: lateral knee pain, twist and plant injury. TECHNIQUE: 2D digital imaging was performed of the left knee. Three images were obtained. AP, late ral and PA tunnel views were obtained. COMPARISON: There are no priors for comparison. FINDINGS: BONES: No acute fracture is present. No bony destructive lesion is seen. JOINTS: There is marked narrowing of the patellofemoral joint. There osteophytes present in all 3 azeem int compartments, particularly the patellofemoral joint and lateral femoral tibial joint. There is a joint effusion. SOFT TISSUE: There is a well corticated osseous density adjacent to the anterior tibial tuberosity wh ich is chronic. IMPRESSION: 1. No acute fracture or dislocation. 2. Marked arthrosis of the left knee. DATA REPOSITORY: RADIATION DOSE DELIVERED:
--- NOTE | 2024-05-04 15:33 | ED.GENADUL_ITS ---
Discharge Plan Disposition Patient Disposition: Home Condition: Stable Discharge Details Clinical Impression: Knee effusion, left Primary Care Provider: Ale Jenkins ED Provider: Ariadna Kim Home Meds and New Rx's Prescriptions: New cyclobenzaprine 10 mg tablet 10 mg PO TID PRNQty: 10 0RF Continued fluticasone propionate [Flovent HFA] 110 mcg/actuation HFA aerosol inhaler 2 puff IH BID acetaminophen [Tylenol] 325 MG tablet 325 mg PO PRN ProAir RespiClick 90 MCG aerosol powdr breath activated 2 puff IN PRN PRN Discharge Instructions Instructions: Swollen Joints (DC) Additional Instructions: motrin/tylenol as needed for pain take flexeril for pain as needed purchase a splint online after measuring your leg follow-up with orthopedics, weightbearing as tolerated return with worsening pain, fever, chills, or if any new concerns arise Referrals: Ale Jenkins [Primary Care Provider] - 2 days HPI General Date/Time Provider Initiated Documentation: 05/04/24 11:35 . HPI Narrative: This 59-year-old female presents with injury which occurred yesterday. Was stepping out her door when she slipped on the wooden step that had Jolley on it. She planted her foot and twisted her knee. States she has been able to weight- bear with discomfort. Denies any falls or additional trauma. Related Data Home Medications ?Medication ?Instructions ?Recorded ?Confirmed acetaminophen 325 mg tablet 325 mg PO PRN 07/27/17 05/04/24 (Tylenol) albuterol sulfate 90 mcg/actuation 2 puff IN PRN PRN 08/03/17 05/04/24 breath activated powder inhaler (ProAir RespiClick) fluticasone propionate 110 2 puff inhalation BID 11/26/19 05/04/24 mcg/actuation HFA aerosol inhaler (Flovent HFA) cyclobenzaprine 10 mg tablet 10 mg PO TID PRN #10 tabs 05/04/24 Previous Rx's ?Medication ?Instructions ?Recorded cyclobenzaprine 10 mg tablet 10 mg PO TID PRN #10 tabs 05/04/24 Allergies Allergy/AdvReac Type Severity Reaction Status Date / Time ibuprofen Allergy Unknown Skin Rash Unverified 05/04/24 11:32 General Stated Complaint: Orthopedic JAYLON: 3 Exam Narrative Exam Narrative: 59-year-old female no acute distress, tenderness with knee motion, predominantly flexion, no joint laxity or palpable effusion, no redness, no tenderness to left hip or left ankle, neurovascularly intact Course Vital Signs Vital signs: Vital Signs Temperature 36.4 C 05/04/24 11:27 Pulse 77 05/04/24 11:27 Respiratory Rate 17 05/04/24 11:27 Blood Pressure 131/82 05/04/24 11:27 Pulse Oximetry 95 05/04/24 11:27 Temperature 36.4 C 05/04/24 11:27 Temperature Source Oral 05/04/24 11:27 Pulse 77 05/04/24 11:27 Respiratory Rate 17 05/04/24 11:27 Respiratory Effort Normal, Non-Labored 05/04/24 11:46 Blood Pressure 131/82 05/04/24 11:27 Pulse Oximetry 95 05/04/24 11:27 Oxygen Delivery Method Room Air 05/04/24 11:27 Oxygen Flow Rate 0 05/04/24 11:27 Pain Level 10 05/04/24 11:46 Medical Decision Making 59-year-old female, no acute distress, left knee x-ray shows effusion and degenerative changes consistent with arthritis per radiology interpretation my review. Suspect internal derangement of the knee. Unfortunately we do not have a brace level appropriately for this patient. Should be placed on Ortho list for follow-up secondary to knee effusion. 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 Motrin or Tylenol as needed pain. Return precautions reviewed and patient expressed understanding. Quality:SDOH Health Related Social Needs: No Data to Display PFSH All Active Problems (Updated 05/04/24 @ 12:48 by BHAVESH Bass) Knee effusion, left (Acute) Diverticulosis (Acute) Colon polyps (Acute) Adenoma determined by colorectal biopsy (Acute 10/25/16) sessile serrated adenoma of ascending colon Benign neoplasm of hand (Acute 10/22/13) Dysphonia (Acute 09/26/13) Neoplasm of skin (Acute 09/26/13) Smoker (Acute 09/26/13) Peripheral polyneuropathy (Acute 08/11/17) Constipation (Acute) Pre-op evaluation (Acute) Medical History (Updated 05/04/24 @ 12:48 by BHAVESH Bass) IUD (intrauterine device) in place Hammertoe of right foot Bursitis of right shoulder [place] [facility] Onychomycosis Knee pain, right Superficial thrombophlebitis Fatigue Constipation Obesity, Class III, BMI 40-49.9 (morbid obesity) Osteoarthritis Surgical History (Updated 12/07/19 @ 09:10 by Dang Singh MD) Excision, Skin Mass Colonoscopy - MAC (10/25/16) 12/07/19 Family History Mother Cervical cancer Social History Smoking/Tobacco Use Status: Current every day Tobacco Type: cigarettes Years smoked: 35 Smoking risk assessment performed?: Yes Alcohol Intake: never Drug use: Never Substance use type: does not use Details: pt. reports she smokes 10-20 cigarettes/day Housing: house Current gender identity: female Do you feel safe at home: Yes Do you feel safe in your relationship?: Yes
== END 2024-05-04 13:11 | disposition home or self-care (01) ==
PROVIDERS: Emergency Provider Physician Assistant; PCP Nurse Practitioner Family
DX: M25.462 Effusion, left knee (principal)
CPT/HCPCS: 73562; 99283; 99284

== ENCOUNTER 2024-08-17 12:11 | Inpatient (IN) | payer MEDICAID, SELFPAY ==
[2024-08-17] VITALS (50 sets, daily range): BP systolic 114–166; BP diastolic 62–123; PULSE 27–106; RESP 3–46; TEMP 36.7–38; O2SAT 78–99
--- NOTE | 2024-08-17 12:15 | RT.EKG_ITS ---
APPROVED REPORT Exam: Resting ECG Reason for Exam: Dizzy SOB Patient Location: E HR:97 bpm ECG Measurements Heart Rate 97 AXIS MI 161 P 33 QRSd 100 QRS -45 QT 341 T 60 QTc 434 Conclusion Sinus rhythm. 97 no stemi
--- OUTSIDE RECORDS SUMMARY | 2024-08-17 12:30 | XMS_ITS | Clinical Summary ---
Author Organization [facility] [place] [place] [address] Care Team Providers Care Training Personnel Supervisor Name Role Phone Ale Jenkins ARNEL Primary Care Provider +1- [phone] Allergies Active Allergy Reactions Criticality Noted Date Comments Ibuprofen Low 09/11/2020 Hives Medications Medication Sig Dispensed Refills Start Date End Date Status albuteroL 90 mcg/actuation inhaler (HFA) INHALE TWO PUFFS BY MOUTH EVERY 4 TO 6 HOURS NEEDED Active benzonatate (Tessalon) 100 mg capsule Take 1 capsule by mouth 3 times daily as needed. Active budesonide-formoteroL (Symbicort) 80-4.5 mcg/actuation HFA Aerosol Inhaler 2 puff using inhaler twice a day rinse and spit after use Active levonorgestrel 21 mcg/24 hours (8 yrs) 52 mg IUD 02/08/2012 Active orlistat (XenicaL) 120 mg capsule 1 capsule by mouth three times a day as needed with or within one hour of a meal that contains fat 11/09/2022 Active furosemide (Lasix) 20 mg tablet 1 tablet by mouth once a day as needed TAKE ONE TABLET BY MOUTH EVERY DAY as needed for edema Active Active Problems No known active problems Social History Tobacco Use Types Packs/Day Years Used Date Smoking Tobacco: Every Day Cigarettes Smokeless Tobacco: Never Tobacco Cessation:Ready to Q uit: Not Asked; Counseling Given: Not Answered Sex and Gender Information Value Date Recorded Sex Assigned at Not on file Gender Identity Not on file Sexual Orientation Not on file Last Filed Vital Signs Vital Sign Reading Time Taken Comments Blood Pressure 128/81 09/11/2020 3:07 PM EST Pulse 82 09/11/2020 3:07 PM EST Temperature - - Respiratory Rate - - Oxygen Saturation 95% 09/11/2020 3:07 PM EST Inhaled Oxygen Concentration - - Weight 136.1 kg (300 lb) 09/11/2020 3:07 PM EST Height 177.8 cm (5' 10) 09/11/2020 3:07 PM EST Body Mass Index 43.05 09/11/2020 3:07 PM EST Plan of Treatment Health Maintenance Due Date Last Done Comments CT Colonography 1966 Colonoscopy 1966 Colorectal Cancer Screening 1966 FIT DNA 1966 FIT 1966 Sigmoidoscopy (10 year) with FIT yearly 1966 Sigmoidoscopy 1966 HIV screen 1984 Hepatitis C Screening 1984 Lipid Screening 1984 Hepatitis B vaccine (0-59 yrs) (1) 1985 Pneumoccocal Vaccine: 50+ (1 of 2 - PCV) 1985 Tetanus/Diphtheria/Pertussis Vaccines (1 - Tdap) 04/15 HPV test 1996 PAP Smear 1996 Breast Cancer Share Decision Needed 2006 Breast Cancer screening 2006 Zoster vaccine (1 of 2) 2016 Advance Directive 2021 Covid-19 Vaccine (1 - season) 2024 Influenza (Flu) vaccine (1 o f 1 - Influenza standard series) 03/18/2024 Care Teams Training Personnel Supervisor Relationship Specialty Start Date End Date Ale Jenkins APRN [address] [place] [id number] PCP - General Family Medicine 09/16/23
--- OUTSIDE RECORDS SUMMARY | 2024-08-17 12:31 | XMS_ITS | Encounter Summary ---
[place] [address] Care Team Providers Care Law Librarian Name Role Phone Rubens Lee DNP Primary Care Provider +1 [phone] Reason for Visit * Consultation (Routine) - Closed Specialty Diagnoses / Procedures Referred By Brent t Referred To Contact Vascular Surgery Diagnoses bilat lymphodema Rubens Lee DNP [address] [place] [address] [facility] [address] [place] [address] Referral ID Status Reason Start Date Expiration Date V isits Requested Visits Authorized [id number] Closed Consult, Test & Treat 08/15/2020 08/15/2021 2 2 Encounter Details Date Type Department Care Team (Late st Contact Info) Description 09/11/2020 1:00 PM EST Tech [place] [address] [place], [place], [place] Edema, unspecified type Social History Tobacco Use Types Packs/Day Years Used Date Smoking Tobacco: Light Smoker Smokeless Tobacco: Never Sex and Gender Information Value Date Recorded Sex Assigned at Not on file Gender Identity Not on file Sexual Orientation Not on file documented as of this encounter Plan of Treatment Not on file documented as of this encounter Procedures Procedure Name Priority Date/Time Associated Diagnosis Comments VENOUS VALVULAR INCOMP, BILAT LEGS Routine 09/11/2020 1:04 PM EST Edema, unspecified type documented in this encounter Results * Venous Valvular Incomp, Bilat Legs (09/11/2020 1:04 PM EST) VB Text Report Department: Vascular Surgery Lab Patient: [id number] (DISHA VELARDE) CPT: 03179 ICD10: I83.811;R60.9 Referring Physician: TAY LOPEZ, ARNEL ?? Indications: Patient with bilateral lower extremity edema, ? venous reflux Patient Positioning: ??Reverse Trendelenburg ICD10 Diagnosis Code: R60.9 Findings: Right ?Reflux?Diameter (mm) ??Depth (mm) ?? Common Femoral Vein ??Competent ? Femoral Vein ? Competent ? Popliteal ?Competent ? GSV, Near SFJ ?Reflux ? 6.7 ?17.2 ?? GSV, Proximal Thigh ??Reflux ? 5.0 ?26.0 ?? GSV, Mid Thigh ? Reflux ? 6.0 ?26.4 ?? GSV, Distal Thigh ?Reflux ? 6.2 ?29.6 ?? GSV, ??Knee ? Reflux ? 6.0 ?29.0 ?? GSV Prox Calf ?Reflux ? 2.4 ?28.8 ?? GSV, Mid Calf ?Competent ?1.8 ?25.3 ?? GSV, Distal Calf ? Reflux ? SSV ?Competent ? Prox ASV ? Reflux ? 6.2 ?13.2 ?? Left ? Reflux?Diameter (mm) ??Depth (mm) ?? Common Femoral Vein ??Competent ? Femoral Vein ? Competent ? Popliteal ?Competent ? GSV, Near SFJ ?Competent ? GSV, Proximal Thigh ??Competent ? GSV, Mid Thigh ? Competent ? GSV, Distal Thigh ?Competent ? GSV, ??Knee ? Competent ? GSV Prox Calf ?Reflux ? 2.1 ?27.7 ?? GSV, Mid Calf ?Competent ? GSV, Distal Calf ? Competent ? SSV ?Competent ? Prox ASV ? Competent ? Interpretation: RIGHT: There is a focally thrombosed varicose vein at the knee/very proximal calf. There is reflux in the great saphenous vein at the saphenofemoral junction to proximal calf and then in the distal calf (>2.9 seconds) which is consistent with superficial venous valvular incompetence. The great saphenous vein is competent in the mid calf. Varicose vein associated with the great saphenous vein in the mid/distal thigh which travels across the anteromedial thigh. There are also varicose veins which associated with the great saphenous vein in the proximal calf which travel down the medial calf and anteromedial ankle. There is reflux in the anterior saphenous vein (> 2.4 seconds) which is consistent with superficial venous valvular incompetence. The anterior saphenous vein leaves the fascia in the proximal thigh, becomes varicose, and travels down the anterior thigh and knee. No evidence of significant reflux identified within the common femoral vein, femoral vein through the thigh, popliteal vein, or small saphenous vein. LEFT: There is reflux in the great saphenous vein at the proximal calf (1.1 seconds) consistent with isolated superficial venous valvular incompetence. The remainder of the great saphenous vein is competent. There are varicose veins which associated with the great saphenous vein at the knee and proximal calf which travel down the anteromedial calf. No evidence of significant reflux identified within the common femoral, femoral vein through the thigh, popliteal, small saphenous vein, or anterior saphenous vein. No evidence of bilateral lower extremity deep vein thrombus (common femoral, femoral vein through the thigh, or popliteal) Comparison: No previous study in our vascular lab database for comparison. Electronically Signed by: NAYLA ERVIN on 2020-09-16 07:27:45 AM VASCUBASE VB Text Report End of Report VASCU[facility] 09/11/2020 1:04 PM EST Tay Lopez CENSUS CLERK VASCULAR ORDERABLE S Performing Organization Address City/State/[facility] Co de Phone Number VASCUBASE documented in this encounter Visit Diagnoses Diagnosis Edema, unspecified type documented in this encounter Care Teams Law Librarian Relationship Specialty Start Date End Date Rubens Lee DNP [address] [place] [address] PCP - General Family Medicine 09/11/20 09/15/23 documented as of this encounter
--- OUTSIDE RECORDS SUMMARY | 2024-08-17 12:31 | XMS_ITS | Encounter Summary ---
Author Organization [facility] [place] [address] Care Team Providers Care Senior Integration Developer Name Role Phone Unavailable Primary Care Provider Unavailabl e Encounter Details Date Type Department Care Team (Late st Contact Info) Description 08/15/2020 3:20 PM EST Ancillary Procedure Radiology Library at [facility] ISAMAR Kim [id number] Rubens Lee DNP [facility] [address] [place] [address] Social History Tobacco Use Types Packs/Day Years Used Date Smoking Tobacco: Never Assessed Sex and Gender Information Value Date Recorded Sex Assigned at Not on file Gender Identity Not on file Sexual Orientation Not on file documented as of this encounter Plan of Treatment Not on file documented as of this encounter Procedures Procedure Name Priority Date/Time Associated Diagnosis Comments FILM LIBRARY STORAGE ONLY ULTRASOUND STUDY Routine 08/15/2020 3:18 PM EST documented in this encounter Results * Film Library- Storage Only Ultrasound Study (08/15/2020 3:18 PM EST) Narrative SAROJ - 08/15/2020 3:18 PM EST This exam is auto-finalizing. It's purpose is for storage only. Rubens BEAN FILM [facility] [place] documented in this encounter Visit Diagnoses Not on filedocumented in this encounter
--- OUTSIDE RECORDS SUMMARY | 2024-08-17 12:31 | XMS_ITS | Encounter Summary ---
[place] [address] Care Team Providers Care Orientation And Mobility Specialist Name Role Phone Ale Jenkins APRN Primary Care Provider +1- [phone] Encounter Details Date Type Department Care Team (Latest Contact Info) Description 10/18/2023 Travel Social History Tobacco Use Types Packs/Day Years Used Date Smoking Tobacco: Every Day Cigarettes Smokeless Tobacco: Never Sex and Gender Information Value Date Recorded Sex Assigned at Not on file Gender Identity Not on file Sexual Orientation Not on file documented as of this encounter Plan of Treatment Not on file documented as of this encounter Visit Diagnoses Not on filedocumented in this encounter Care Teams Orientation And Mobility Specialist Relationship Specialty Start Date End Date Ale Jenkins APRN [address] [place] [id number] PCP - General Family Medicine 09/16/23 documented as of this encounter
--- OUTSIDE RECORDS SUMMARY | 2024-08-17 12:31 | XMS_ITS | Encounter Summary ---
Author Organization [facility] [place] [address] Care Team Providers Care Professor Of Economics Name Role Phone Ale Jenkins APRN Primary Care Provider +1- [phone] Reason for Visit * Reason Comments Skin Check * Consultation (Routine) - Closed Specialty Diagnoses / Procedures Referred By Brent thomas Referred To Contact Dermatology Diagnoses Disorder of pigmentation, unspecified Ale Jenkins APRN [address] [place] [address] Johnie Osuna MD [address] [place] [address], LEIGHANN [place] [address] Referral ID Status Reason Start Date Expiration Date Visits Re quested Visits Authorized [id number] Closed 09/16/2023 09/15/2024 1 1 Encounter Details Date Type Department Care Team (Late st Contact Info) Description 10/18/2023 9:45 AM EDT Office Visit Dermatology at [address] [address] Johnie Osuna MD [address] [place] [address], LEIGHANN Manjarrez DERMATOLOGY [place], [place] [id number] Psoriasis; History of atypical nevus Social History Tobacco Use Types Packs/Day Years Used Date Smoking Tobacco: Every Day Cigarettes Smokeless Tobacco: Never Tobacco Cessation:Ready to Q uit: Not Asked; Counseling Given: Not Answered Sex and Gender Information Value Date Recorded Sex Assigned at Not on file Gender Identity Not on file Sexual Orientation Not on file documented as of this encounter Progress Notes * Johnie Osuna MD - 10/18/2023 9:45 AM EDT Problem: 1. New patient initial visit, augmented skin lesion of concern 2. Personal and family history of psoriasis Disha presents today for evaluation of a pigmented lesion. This was biopsied by her PCP and found to be an atypical dysplastic nevus with mild atypia extending to the biopsy base. Was taken from the right superior shoulder. He has a history of psoriasis for which she has bag balm and this seems to work well. She runs a consignment shop. Physical examination reveals a pleasant 58-year-old woman who has some residual nevus on the right superior shoulder at the biopsy site, which in the meantime since the biopsy performed on September 08 has healed well. She has on examination of her back face hands arms and forearms. She does have plaques of psoriasis on both elbows and on the distal extensor elbows. Assessment plan: Dysplastic nevus right superior shoulder, with mild atypia 1. Given [facility] pathology reading of mild atypia, would not recommend reexcision or any further intervention. 2. Patient reassured Psoriasis, elbows 1. Continue conservative therapy bag balm which patient would prefer Benign skin examination 1. Patient reassured about her benign skin examination care. CC: Ale Jenkins APRN documented in this encounter Plan of Treatment Not on file documented as of this encounter Visit Diagnoses Diagnosis Psoriasis Other psoriasis History of atypical nevus Personal history of diseases of skin and subcutaneous tissue documented in this encounter Care Teams Professor Of Economics Relationship Specialty Start Date End Date Ale Jenkins APRN [address] [place] [id number] PCP - General Family Medicine 09/16/23 documented as of this encounter
--- OUTSIDE RECORDS SUMMARY | 2024-08-17 12:31 | XMS_ITS | Encounter Summary ---
[place] [address] Care Team Providers Care Aquatics Manager Name Role Phone Rubens Lee DNP Primary Care Provider [phone] [phone] Reason for Referral * Consultation (Routine) - Closed Specialty Diagnoses / Procedures Referred By Brent t Referred To Contact Bariatrics Diagnoses Morbid obesity Ale Jenkins APRN [address] [place] [address] [facility] [address] [address] Referral ID Status Reason Start Date Expiration Date V isits Requested Visits Authorized [id number] Closed Consult, Test & Treat PCP Updated and/or Approved 07/14/2023 07/13/2024 6 6 Encounter Details Date Type Department Care Team (Late st Contact Info) Description 07/14/2023 Transcribe Orders eDH Incoming Referrals [phone] Ale Jenkins APRN [address] [place] [phone] Morbid obesity Social History Tobacco Use Types Packs/Day Years Used Date Smoking Tobacco: Light Smoker Smokeless Tobacco: Never Sex and Gender Information Value Date Recorded Sex Assigned at Not on file Gender Identity Not on file Sexual Orientation Not on file documented as of this encounter Plan of Treatment Scheduled Referrals Name Type Priority Associated Diagnoses Orde r Schedule Referral to Bariatric Surgery Program Outpatient Referral Routine Morbid obesity Ordered: 07/14/2023 documented as of this encounter Visit Diagnoses Diagnosis Morbid obesity documented in this encounter Care Teams Aquatics Manager Relationship Specialty Start Date End Date Rubens Lee DNP [address] [place] [address] PCP - General Family Medicine 09/11/20 2 documented as of this encounter
--- OUTSIDE RECORDS SUMMARY | 2024-08-17 12:31 | XMS_ITS | Encounter Summary ---
Author Organization [facility] [place] [address] Care Team Providers Care Cvir Tech Name Role Phone Unavailable Primary Care Provider Unavailabl e Encounter Details Date Type Department Care Team (Late st Contact Info) Description 08/15/2020 Orders [place] [address] Tay Lopez APRN Edema, unspecified type Social History Tobacco Use Types Packs/Day Years Used Date Smoking Tobacco: Never Assessed Sex and Gender Information Value Date Recorded Sex Assigned at Not on file Gender Identity Not on file Sexual Orientation Not on file documented as of this encounter Plan of Treatment Not on file documented as of this encounter Results * Venous Valvular Incomp, Bilat Legs (09/11/2020 1:04 PM EST) VB Text Report Department: Vascular Surgery Lab Patient: [id number] (DISHA VELARDE) CPT: 65336 ICD10: I83.811;R60.9 Referring Physician: TAY LOPEZ APRN ?? Indications: Patient with bilateral lower extremity [...] VAS[facility] 09/11/2020 1:04 PM EST Tay Lopez COMFORT FILLER VASCULAR ORDERABLE S VASCU[facility] documented in this encounter Visit Diagnoses Diagnosis Edema, unspecified type documented in this encounter
--- OUTSIDE RECORDS SUMMARY | 2024-08-17 12:31 | XMS_ITS | Encounter Summary ---
Author Organization Formerly [facility], [facility] Address [facility] [place] [address] Care Team Providers Care Electric Stove Installer Name Role Phone Rubens Lee DNP Primary Care Provider [phone] Reason for Visit * Consultation (Routine) - Closed Specialty Diagnoses / Procedures Referred By Contreji t Referred To Contact Vascular Surgery Diagnoses bilat lymphodema Rubens Lee DNP [address] [place] [address] [facility] [address] [place] [address] Referral ID Status Reason Start Date Expiration Date V isits Requested Visits Authorized [id number] Closed Consult, Test & Treat 08/15/2020 08/15/2021 2 2 Encounter Details Date Type Department Care Team (Late st Contact Info) Description 09/11/2020 3:00 PM EST Office [place] [address] Stewart Berger MD [facility] [place] [address] Chronic pain of right knee Social History Tobacco Use Types Packs/Day Years Used Date Smoking Tobacco: Light Smoker Smokeless Tobacco: Never Sex and Gender Information Value Date Recorded Sex Assigned at Not on file Gender Identity Not on file Sexual Orientation Not on file documented as of this encounter Last Filed Vital Signs Vital Sign Reading [...] Mass Index 43.05 09/11/2020 3:07 PM EST documented in this encounter Progress Notes * Stewart Berger MD - 09/11/2020 3:00 PM EST This is a new patient to the practice who is being evaluated for right knee swelling and was referred by Rubens Lee APRN. The patient has had right knee issues for some time and underwent arthroscopic surgery recently. After the procedure, she has developed some persistent swelling superior and lateral to the patella. The swelling is quite focal and causes her discomfort. She states that because of this, she is having trouble working. She underwent a venous reflux study today to see if venous issues are causing swelling in this area. PMHx: No past medical history on file. PSxHx: No past surgical history on file. Family Hx: No family history on file. Social Hx: Social History Tobacco Use ??? Smoking status: Light Tobacco Smoker ??? Smokeless tobacco: Never Used Substance Use Topics ??? Alcohol use: Not on file Medications: Medications 09/11/20 1507 Medication Sig Taking? furosemide (Lasix) 40 mg/5 mL (8 mg/mL) Solution Take 5 mg by mouth as needed. Yes Allergies: Allergies Allergen Reactions ??? Motrin [Ibuprofen] Hives Review of Systems: Constitutional (weight change, fever) - Denies Neuro (dizziness, seizures, numbness, tingling) - Denies Eyes (vision) - Denies Ears, nose, throat (hearing) - Denies Cardiovascular (CP) - Denies Respiratory (SOB) - Denies GI (abd pain, nausea, emesis, blood in stool) - Denies (hematuria, dysuria, frequency) - Denies Muscoloskeletal (extremity pain, weakness) - right knee pain Skin (ulcers, rashes) - denies All other ROS negative Physical Exam: Vitals: Patient Vitals for the past 24 hrs: Pulse BP SpO2 09/11/20 1507 82 128/81 95 % Gen: No acute distress. HEENT: Normocephalic, atraumatic. PERR, EOMs intact bilaterally. No scleral icterus. Normal dentition Neck: Supple, no JVD. Heart: Regular rate and rhythm. (+) S1/S2. No snaps, clicks, rubs, or murmurs. No lifts/heaves Lungs: Regular respiratory rate with no increased work of breathing. Clear to auscultation bilaterally. Abd: Soft, nontender, not distended. Audible bowel sounds. No bruits or pulsatile mass on exam. No hepato/splenomegaly. Aortic pulsation normal Vascular Exam: R L Carotid 2/2 bruit (-) 2/2 bruit (-) Radial 2/2 2/2 Femoral 2/2 2/2 Popliteal 2/2 2/2 DP 2/2 2/2 PT 2/2 2/2 Focal swelling of soft tissue to the superior and lateral aspect of the right patella Skin: normal Digits/Nails: No evidence of clubbing, cyanosis, ischemia, or tissue loss. Musculoskeletal: Gait - normal, no notable motor sensory deficits on gross examination. Psych: AAOx3, mood/affect congruent Labs/Studies: Findings: ?? Right ?Reflux?Diameter (mm) ??Depth (mm) ?? Common [...] Prox ASV ? Reflux ? 6.2 ?13.2 ? Left ? Reflux?Diameter (mm) ??Depth (mm) ?? [...] ? Prox ASV ? Competent ? Interpretation: ?? RIGHT: There is a focally thrombosed varicose vein at the knee/very proximal calf. ?? There is reflux in the great saphenous [...] down the medial calf and anteromedial ankle. ?? There is reflux in the anterior saphenous vein (> 2.4 seconds) which is consistent with superficial venous valvular incompetence. The anterior saphenous vein leaves the fascia in the proximal thigh, becomes varicose, and travels down the anterior thigh??and knee. ?? No evidence of significant reflux identified within the common femoral vein, femoral vein through the thigh, popliteal vein, or small saphenous vein. ?? LEFT: There is reflux in the great saphenous vein at the proximal calf (1.1 seconds) consistent with isolated superficial venous valvular incompetence. The remainder of the great saphenous vein is competent. There are varicose veins which associated with the great saphenous vein at the knee and proximal calf which travel down the anteromedial calf. ?? No evidence of significant reflux identified within the common femoral, femoral vein through the thigh, popliteal, small saphenous vein, or anterior saphenous vein. ? No evidence of bilateral lower extremity deep vein thrombus (common femoral, femoral vein through the thigh, or popliteal) ?? 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 However, neither of these issues would explain focal edema superior and lateral to the patella. I cannot explain focal and painful swelling in this anatomic location based upon her pattern of venous disease. The fact that the swelling started immediately after an arthroscopic surgical procedure would suggest to me that it is more likely a postoperative edema type phenomenon. I do not believe that any venous intervention would be of therapeutic benefit in alleviating this problem. Furthermore, I believe that any edema type problem is best managed with extrinsic compression. I see no need for further vascular evaluation, treatment, or follow-up, so we will see her back in vascular clinic on an as-needed basis. documented in this encounter Plan of Treatment Not on file documented as of this encounter Visit Diagnoses Diagnosis Chronic pain of right knee documented in this encounter Care Teams Electric Stove Installer Relationship Specialty Start Date End Date Rubens Lee DNP [address] [place] [address] PCP - General Family Medicine 09/11/20 09/15/23 documented as of this encounter
--- NOTE | 2024-08-17 12:32 | DI.RAD_ITS ---
Exam(s) XR PORTABLE CHEST AP EXAM: XR PORTABLE CHEST AP CLINICAL HISTORY: SOB TECHNIQUE: 2D digital imaging was performed of the chest. Two images were obtained. AP views were obtained. COMPARISON: CR XR CHEST 2V PA LATERAL from 07/03/2019 FINDINGS: MEDIASTINUM: Normal. HEART: Normal. PULMONARY VASCULATURE: Normal. LUNGS: Atelectasis is seen in the left mid lung. No focal consolidating infiltrates are seen. PLEURAL SPACE: No pleural effusion or pneumothorax. BONE:Within normal limits for the patient's age. OTHER FINDINGS:Normal. IMPRESSION: No acute pulmonary findings. DATA REPOSITORY: RADIATION DOSE DELIVERED:
[2024-08-17] MEDS: Albuterol/Ipratropium 3 ML UPD VIAL (12:35)
[2024-08-17] MEDS: methylPREDNISolone SUCC 125 MG VIAL IVP (12:36)
[2024-08-17 12:42] LABS: Abs Immature Grans 0.03 10^3/uL (0.0-0.06); BE (Venous) 4 mmol/L (-2-3); HCO3 (Venous) 30 mmol/L (23-28); HCT 55.4 % (36.0-46.0); HGB 17.6 g/dL (11.2-15.7); MCH 29.6 pg (27.0-33.0); MCHC 31.8 % (32.0-36.0); MCV 93 fL (80-95); MPV 9.4 fL (8.0-11.0); O2 Sat (Venous) 66 %; Platelet Count 315 10^3/uL (130-400); RDW 14.2 % (11.7-14.6); RDW-SD 49.5 fL; TCO2 (Venous) 27 mmol/L (24-29); WBC 7.12 10^3/uL (4.4-10.8); pCO2 (Venous) 59 mmHg (41-51); pH (Venous) 7.31 (7.31-7.41); pO2 (Venous) 36 mmHg
--- NOTE | 2024-08-17 12:59 | RESPIRATORY ---
RT Initial Evalutation/Assessment Start: 08/17/24 12:46 Freq: ONCE Status: Active Protocol: Document 08/17/24 12:47 (Rec: 08/17/24 12:59 [id number]) RT Assessment Pulmonary History Pulmonary History COPD Smoking History Smoking/Tobacco Use Status Current every day Tobacco: How many years used 42 Tobacco Type cigarettes Packs per Day 1 Cigarettes per Day 20 Years smoked 42 Smoking packs per day 1 OXYGEN HISTORY: Supplemental O2 At Rest 0 With Exertion 0 CPAP Can use home machine N/A BIPAP Can you home machine N/A Trilogy/AVAPS Can use home machine N/A DME/Compliance DME N/A Compliance N/A Current Respiratory Symptoms Current Respiratory Symptoms Cough,Shortness of breath, Sputum production,Wheezing Activity Activity Level Pt normally is able to walk dogs and do her own grocery shopping at [facility] Respiratory Breath Sounds Breath Sounds Faint wheezing or rhonci, decreased sounds throughout Pulse Rate <100 Respiratory Rate 26-32 Shortness of Breath At rest Respiratory Therapy Score Total 6 Assessment and Plan RT Treatment Protocol Bronchodilator Aerosol Therapy Protocol,Lung Expansion Therapy Protocol,Bronchial Hygiene Therapy Protocol Note Pt uses Symbicort MDI 80/4.5, 2 puffs BID - when she remembers to take it. Also has Albuterol MDI PRN for rescue inhaler. On arrival to the ED today, pt's Symbicort inhaler is empty - states she has another one at home, and the albuterol inhaler has 8 puffs left. At baseline, pt is active and able to perform ADLs, do her own grocery shopping, and walk her dogs independently. Pt does not use any oxygen or NIV machines at home. Pt states she is still currently smoking aprx 1 pack of cigarettes a day. Pt has had previous PFT many years ago that showed indications of COPD, pt is not being followed by compliance associate though, and has never had a COPD exacerbation in the past that warranted the use of emergent BiPAP. Given Moderate score of 6 on this assessment, pt will be given 10mg continuous albuterol nebulizer, acapella, incentive spirometer, respiratory viral testing, and nursing is obtaining VBG to determine possible need for NIV.
[2024-08-17 13:00] LABS: Absolute Basophil Count 0.07 10^3/uL (0.0-0.2); Absolute Eosinophil Count 0.21 10^3/uL (0.0-0.7); Absolute Lymphocyte Count 0.85 10^3/uL (1.2-3.4); Absolute Monocyte Count 0.85 10^3/uL (0.1-0.8); Absolute Neutrophil Count 5.13 10^3/uL (1.2-6.7); Diff Comment Manual Differential; RBC 5.95 10^6/uL (3.93-5.22); RBC Morphology Normal
[2024-08-17 13:15] LABS: ALT 38 U/L (14-59); AST 27 U/L (15-37); Albumin 3.6 g/dL (3.4-5.0); Alkaline Phosphatase 128 U/L (46-116); Anion Gap 7.9 mmol/L (3-11); BUN 9 mg/dL (7-18); Bilirubin, Total 0.24 mg/dL (0.2-1.0); CO2 30.1 mmol/L (21.0-32.0); CREATININE 0.9 mg/dL (0.55-1.02); Chloride 101 mmol/L (98-107); Glucose 102 mg/dL (74-106); NT-proBNP 546 pg/mL (<300); Potassium 4.9 mmol/L (3.5-5.1); Sodium 139 mmol/L (136-145); Total Protein 8.2 g/dL (6.4-8.2); Troponin I 19 ng/L (<or=51)
[2024-08-17 13:28] LABS: COVID-19 PCR Negative (Negative); Influenza A PCR Positive (Negative); Influenza B PCR Negative (Negative); RSV PCR Negative (Negative)
[2024-08-17 13:30] LABS: Source Nasopharynx
--- NOTE | 2024-08-17 13:34 | W.ED.GENAD ---
Discharge Plan Disposition Patient Disposition: Admit to [facility] Condition: Serious Discharge Details Clinical Impression: Influenza A, Respiratory failure, Pneumonia Primary Care Provider: Ale Jenkins ED Provider: Renate Tai Home Meds and New Rx's Prescriptions: No Action acetaminophen [Tylenol] 325 MG tablet 325 mg PO PRN furosemide 20 mg tablet 20 mg PO DAILY Mirena 21 mcg/24hr (up to 8 yrs) 52 mg intrauterine device 1 device intrauterine ONCE budesonide-formoterol [Symbicort] 80-4.5 mcg/actuation HFA aerosol inhaler 2 puff inhalation BID albuterol 90 mcg/actuation aerosol 90 mcg inhalation Q4-6M PRN Rx Instructions: 90 mcg inhaled; cyclobenzaprine 10 mg tablet 10 mg PO TID PRNQty: 10 0RF HPI General Date/Time Provider Initiated Documentation: 08/17/24 12:32. Limitations to Documentation: no limitations and physical limitation. Information obtained by: patient. HPI Narrative: 59-year-old female with past medical history of tobacco abuse, COPD, lymphedema presents for evaluation of shortness of breath. She reports worsening cough, productive of mucus for the last 3 days. Mucus has been yellow and green-colored no known fever at home. Has been trying [id number] cold medications without relief. Reports chills all day. She has been using her albuterol inhaler, but it is run out. She still is using the Symbicort scheduled inhaler. She denies any chest pain. She reports significant lightheadedness when moving around. She reports difficulty breathing when laying flat and she has not been able to lay flat during this illness. She reports chronic lower extremity swelling because of her lymphedema, but does not note any worsening of the swelling or any weight changes. Related Data Home Medications ?Medication ?Instructions ?Recorded ?Confirmed acetaminophen 325 mg tablet 325 mg PO PRN 07/27/17 08/17/24 (Tylenol) cyclobenzaprine 10 mg tablet 10 mg PO TID PRN #10 tabs 05/04/24 08/17/24 albuterol 90 mcg/actuation aerosol 90 mcg inhalation Q4-6M PRN 06/05/24 08/17/24 inhaler budesonide-formoterol HFA 80 2 puff inhalation BID 06/05/24 08/17/24 mcg-4.5 mcg/actuation aerosol inhaler (Symbicort) furosemide 20 mg tablet 20 mg PO DAILY 06/05/24 08/17/24 levonorgestrel 21 mcg/24 hr (up to 1 device intrauterine ONCE 06/05/24 08/17/24 8 years) 52 mg intrauterine device (Mirena) Previous Rx's ?Medication ?Instructions ?Recorded cyclobenzaprine 10 mg tablet 10 mg PO TID PRN #10 tabs 05/04/24 Allergies Allergy/AdvReac Type Severity Reaction Status Date / Time ibuprofen Allergy Unknown Skin Rash Verified 08/17/24 12:46 General Stated Complaint: RespSymp JAYLON: 2 Exam Narrative Exam Narrative: Review of Systems: All systems reviewed & are unremarkable except as noted in HPI and below Well-developed, obese, respiratory distress +febrile NCAT tachycardia, no murmur Increased work of breathing, difficulty with complete sentences, crackles at the bases, expiratory wheezing noted, significant hypoxia with an O2 sat of 77% noted Nondistended abdomen Extremities w/ edema Course Vital Signs Vital signs: Vital Signs Temperature 38.0 C H 08/17/24 12:17 Pulse 98 H 08/17/24 12:17 Respiratory Rate 20 08/17/24 12:17 Blood Pressure 146/89 H 08/17/24 12:17 Pulse Oximetry 85 L 08/17/24 12:17 Temperature 38.0 C H 08/17/24 12:17 Temperature Source Oral 08/17/24 12:17 Pulse 94 H 08/17/24 13:05 Pulse 93 H 08/17/24 13:01 Respiratory Rate 22 08/17/24 13:05 Respiratory Effort Short of Breath, Labored, Accessory Muscle Use, Incrsd Work of Breathing 08/17/24 12:57 Respiratory Depth Normal 08/17/24 12:57 Blood Pressure 161/83 H 08/17/24 13:05 Blood Pressure Mean 95 08/17/24 13:01 Blood Pressure Position Sitting 08/17/24 12:17 Pulse Oximetry 96 08/17/24 13:05 Oxygen Delivery Method Bi-pap 08/17/24 13:05 Oxygen Flow Rate 0 08/17/24 12:17 Pain Level 0 08/17/24 13:05 Lab/Test Results Lab/Test Results: 08/17/24 12:32 Blood Blood Culture - Pending 08/17/24 12:32 Blood Blood Culture - Pending Laboratory Tests Range/Units 08/17/24 08/17/24 12:34 12:47 WBC (4.4-10.8) 10^3/uL 7.12 RBC (3.93-5.22) 10^6/uL 5.95 H Hgb (11.2-15.7) g/dL 17.6 H Hct (36.0-46.0) % 55.4 H MCV (80-95) fL 93 MCH (27.0-33.0) pg 29.6 MCHC (32.0-36.0) % 31.8 L RDW (11.7-14.6) % 14.2 Plt Count (130-400) 10^3/uL 315 MPV (8.0-11.0) fL 9.4 Immature Gran % See Differential Neutrophils % % 72.0 Lymphocytes % % 12.0 Monocytes % % 12.0 Eosinophils % % 3.0 Basophils % % 1.0 Nucleated RBC % (0.0-0.3) % 0.0 Absolute Neutrophils (1.2-6.7) 10^3/uL 5.13 Absolute Lymphocytes (1.2-3.4) 10^3/uL 0.85 L Absolute Monocytes (0.1-0.8) 10^3/uL 0.85 H Absolute Eosinophils (0.0-0.7) 10^3/uL 0.21 Absolute Basophils (0.0-0.2) 10^3/uL 0.07 RBC Morphology Normal VBG pH (7.31-7.41) 7.31 VBG pCO2 (41-51) mmHg 59 H VBG pO2 mmHg 36 VBG HCO3 (23-28) mmol/L 30 H VBG Total CO2 (24-29) mmol/L 27 VBG O2 Saturation % 66 VBG Base Excess (-2-3) mmol/L 4 H Sodium (136-145) mmol/L 139 Potassium (3.5-5.1) mmol/L 4.9 Chloride (98-107) mmol/L 101 Carbon Dioxide (21.0-32.0) mmol/L 30.1 Anion Gap (3-11) mmol/L 7.9 BUN (7-18) mg/dL 9 Creatinine (0.55-1.02) mg/dL 0.9 Est GFR (CKD-EPI 2020) (mL/min/1.73m2) 74.10 Glucose (74-106) mg/dL 102 Calcium (8.5-10.1) mg/dL 9.0 Total Bilirubin (0.2-1.0) mg/dL 0.24 AST (15-37) U/L 27 ALT (14-59) U/L 38 Alkaline Phosphatase (46-116) U/L 128 H Troponin I (<or=51) ng/L 19 NT-Pro-B Natriuret Pep (<300) pg/mL 546 H Total Protein (6.4-8.2) g/dL 8.2 Albumin (3.4-5.0) g/dL 3.6 COVID-19 Source Nasopharynx SARS-CoV-2 (PCR) (Negative) Negative Influenza Type A (PCR) (Negative) Positive A Influenza Type B (PCR) (Negative) Negative RSV (PCR) (Negative) Negative Medical Decision Making Emergent evaluation of respiratory distress. Initial differential includes viral illness, COPD exacerbation, pneumonia. Patient is noted to be profoundly hypoxemic. on arrival to the emergency department, she was immediately placed on supplemental oxygen. Patient has smoking history and was having some wheezing, steroids and continuous bronchodilator treatment were given. Given her increased work of breathing and tachypnea, BiPAP was ordered. Respiratory therapy delayed placement on BiPAP while the nap was running. Chest x-ray does not reveal an acute focal consolidation. Her lab work was reviewed. There is no leukocytosis. She does have some probable heme concentration of her hemoglobin and hematocrit. Though she does not demonstrate signs of dehydration on her CMP. Renal function is normal. Troponin x 2 are not not elevated. BNP is slightly elevated at 546. She does have chronic lower extremity edema and Lasix was given but I do not suspect there is a significant volume overload or CHF component to her respiratory failure. Her flu test is positive. Will give Tamiflu. Given her symptoms and comorbidities, started on antibiotics. Blood cultures have been drawn. Discussed with the hospitalist who will Quality:SDOH Health Related Social Needs: No Data to Display Critical Care Time Critical Care Time Critical Care Time: Yes Total Critical Care Time: 36 Attestation: CRITICAL CARE Upon my evaluation, this patient had a high probability of imminent or life-threatening deterioration due to respiratory failure, influenza which required my direct attention, intervention, and personal management. I have personally provided 36 minutes of critical care time exclusive of time spent on separately billable procedures. Time includes review of laboratory data, radiology results, discussion with consultants, and monitoring for potential decompensation. Interventions were performed as documented above [facility] All Active Problems (Updated 08/17/24 @ 14:07 by Renate Tai MD) Pneumonia (Acute) Respiratory failure (Acute) Influenza A (Acute) Osteoarthritis of left knee (Acute) Steroid injection: 08/03/2024 Diverticulosis (Acute) Colon polyps (Acute) Adenoma determined by colorectal biopsy (Acute 10/25/16) sessile serrated adenoma of ascending colon Benign neoplasm of hand (Acute 10/22/13) Dysphonia (Acute 09/26/13) Neoplasm of skin (Acute 09/26/13) Smoker (Acute 09/26/13) Peripheral polyneuropathy (Acute 08/11/17) Constipation (Acute) Pre-op evaluation (Acute) Medical History IUD (intrauterine device) in place Hammertoe of right foot Bursitis of right shoulder [facility] Onychomycosis Knee pain, right Superficial thrombophlebitis Fatigue Constipation Obesity, Class III, BMI 40-49.9 (morbid obesity) Osteoarthritis Surgical History Excision, Skin Mass Colonoscopy - MAC (10/25/16) 12/07/19 Family History Mother Cervical cancer Social History Smoking/Tobacco Use Status: Current every day Tobacco Type: cigarettes Smoking packs per day: 1 Smoking cigarettes per day: 20.0 Years smoked: 35 Smoking pack-years: 35.00 Tobacco: How many years used: 42 Smoking risk assessment performed?: Yes Alcohol Intake: never Drug use: Never Substance use type: does not use Details: pt. reports she smokes 10-20 cigarettes/day Housing: house Current gender identity: female Do you feel safe at home: Yes Do you feel safe in your relationship?: Yes
[2024-08-17 13:48] LABS: BE (Venous) 1 mmol/L (-2-3); HCO3 (Venous) 27 mmol/L (23-28); O2 Sat (Venous) 88 %; TCO2 (Venous) 24 mmol/L (24-29); pCO2 (Venous) 55 mmHg (41-51); pH (Venous) 7.31 (7.31-7.41); pO2 (Venous) 56 mmHg
[2024-08-17 14:08] LABS: Troponin I 18 ng/L (<or=51)
[2024-08-17] MEDS: Furosemide 40 MG/4 ML VIAL IVP (14:11)
[2024-08-17] MEDS: Oseltamivir 75 MG CAP PO (14:11)
[2024-08-17] MEDS: cefTRIAXone 1 GM/50 ML BAG IVPB (14:24)
[2024-08-17] MEDS: AZITHROMYCIN 500 MG in Normal Saline 250 ML 250 MG IVPB (14:24)
--- NOTE | 2024-08-17 14:37 | W.PM.HP.N ---
Date of service: 08/17/24 Time of Service: 14:37 Assessment and Plan Assessment and plan (1) Smoker: Status: Acute Assessment and plan: added nicoderm (2) Respiratory failure: Status: Acute Assessment and plan: c/w bipap. restarted inhalers and will start on steroids as well (3) Pneumonia: Status: Acute Assessment and plan: Blood cultures pending. On rocephin and zmax (4) Flu: Status: Acute Assessment and plan: c/w tamiflu History of Present Illness History of Present Illness Chief Complaint: shortness of breath Narrative: This is a 59-year-old female who presented to the ED today with significant shortness of breath. While she was in the ED multiple interventions and workup were started. At admission her white count was 7.12 her H&H were 17 and 55 her VBG showed a pH of 7.31 pCO2 55 O2 56 her CMP was essentially benign. Checks x-ray was essentially benign. While in the ED the patient had significant hypoxia and tachypnea requiring BiPAP support. Decision was made to admit her to the ICU for further care. As she was on BiPAP and still short of breath this is an abbreviated history. In reviewing her home meds though she does take some inhalers that would be consistent with COPD and a diuretic that can be used for heart failure or symptom control of her lymphedema. Of note, pt was also diagnosed with influenza a during the work up Review of Systems All systems reviewed & are unremarkable except as noted in HPI and below PFSH All Active Problems (Updated 08/17/24 @ 14:48 by Deepka Castellon MD) Flu (Acute) Pneumonia (Acute) Respiratory failure (Acute) Influenza A (Acute) Osteoarthritis of left knee (Acute) Steroid injection: 08/03/2024 Diverticulosis (Acute) Colon polyps (Acute) Adenoma determined by colorectal biopsy (Acute 10/25/16) sessile serrated adenoma of ascending colon Benign neoplasm of hand (Acute 10/22/13) Dysphonia (Acute 09/26/13) Neoplasm of skin (Acute 09/26/13) Smoker (Acute 09/26/13) Peripheral polyneuropathy (Acute 08/11/17) Constipation (Acute) Pre-op evaluation (Acute) Medical History IUD (intrauterine device) in place Hammertoe of right foot Bursitis of right shoulder [facility] Asthma Onychomycosis Knee pain, right Superficial thrombophlebitis Fatigue Constipation Obesity, Class III, BMI 40-49.9 (morbid obesity) Osteoarthritis Surgical History Excision, Skin Mass Colonoscopy - MAC (10/25/16) 12/07/19 Family History Mother Cervical cancer Social History Smoking/Tobacco Use Status: Current every day Tobacco Type: cigarettes Smoking packs per day: 1 Smoking cigarettes per day: 20.0 Years smoked: 35 Smoking pack-years: 35.00 Tobacco: How many years used: 42 Smoking risk assessment performed?: Yes Alcohol Intake: never Drug use: Never Substance use type: does not use Details: pt. reports she smokes 10-20 cigarettes/day Housing: house Current gender identity: female Do you feel safe at home: Yes Do you feel safe in your relationship?: Yes Meds Allergies and Home Medications Allergies Allergy/AdvReac Type Severity Reaction Status Date / Time ibuprofen Allergy Unknown Skin Rash Verified 08/17/24 12:46 Home Medications ?Medication ?Instructions ?Recorded ?Confirmed ?Type acetaminophen 325 mg tablet 325 mg PO PRN 07/27/17 08/17/24 History (Tylenol) cyclobenzaprine 10 mg tablet 10 mg PO TID PRN #10 tabs 05/04/24 08/17/24 Rx albuterol 90 mcg/actuation aerosol 90 mcg inhalation Q4-6M PRN 06/05/24 08/17/24 History inhaler budesonide-formoterol HFA 80 2 puff inhalation BID 06/05/24 08/17/24 History mcg-4.5 mcg/actuation aerosol inhaler (Symbicort) furosemide 20 mg tablet 20 mg PO DAILY 06/05/24 08/17/24 History levonorgestrel 21 mcg/24 hr (up to 1 device intrauterine ONCE 06/05/24 08/17/24 History 8 years) 52 mg intrauterine device (Mirena) Exam Narrative Exam Narrative: Head eyes ears nose and throat: Normocephalic atraumatic mucous membranes moist oropharynx is clear Neck: No lymphadenopathy no JVD no thyromegaly Pulm: Bilateral wheeze with significant accessory muscle use and decreased ability to speak without symptomology. Right sided crackles as well Cardiovascular: Regular rate and rhythm no murmur rubs gallops Abdomen: Soft nontender nondistended bowel sounds active Extremities: Lymphedema bilaterally lower extremities Neurologic: Cranial nerves II through XII intact as tested reflexes in upper lower extremity normal as tested General: 59-year-old female who appears older than her stated age. Results Labs 08/17/24 12:34 08/17/24 12:34 Labs: Laboratory Results - last 24 hr 08/17/24 08/17/24 08/17/24 12:34 12:47 13:24 WBC 7.12 RBC 5.95 H Hgb 17.6 H Hct 55.4 H MCV 93 MCH 29.6 MCHC 31.8 L RDW 14.2 Plt Count 315 MPV 9.4 Immature Gran % See Differential Neutrophils % 72.0 Lymphocytes % 12.0 Monocytes % 12.0 Eosinophils % 3.0 Basophils % 1.0 Nucleated RBC % 0.0 Absolute Neutrophils 5.13 Absolute Lymphocytes 0.85 L Absolute Monocytes 0.85 H Absolute Eosinophils 0.21 Absolute Basophils 0.07 RBC Morphology Normal VBG pH 7.31 7.31 VBG pCO2 59 H 55 H VBG pO2 36 56 VBG HCO3 30 H 27 VBG Total CO2 27 24 VBG O2 Saturation 66 88 VBG Base Excess 4 H 1 Sodium 139 Potassium 4.9 Chloride 101 Carbon Dioxide 30.1 Anion Gap 7.9 BUN 9 Creatinine 0.9 Est GFR (CKD-EPI 2020) 74.10 Glucose 102 Calcium 9.0 Total Bilirubin 0.24 AST 27 ALT 38 Alkaline Phosphatase 128 H Troponin I 19 18 NT-Pro-B Natriuret Pep 546 H Total Protein 8.2 Albumin 3.6 COVID-19 Source Nasopharynx SARS-CoV-2 (PCR) Negative Influenza Type A (PCR) Positive A Influenza Type B (PCR) Negative RSV (PCR) Negative Last Vital Signs Temp 38.0 C H 08/17/24 12:17 Pulse 104 H 08/17/24 13:25 Resp 41 H 08/17/24 13:25 BP 161/83 H 08/17/24 13:05 Pulse Ox 92 08/17/24 13:25 Time Spent Time spent with Patient: 40-54 minutes Time was spent: preparing to see the patient(eg.review tests), ordering medications,tests, procedures, referring, communicating with other health auto care center manager, indepentently interpreting results, counseling the patient and care coordination
--- OUTSIDE RECORDS SUMMARY | 2024-08-17 16:27 | XMS_ITS | Encounter Summary ---
[place] [address] Care Team Providers Care Pantry Goods Maker Name Role Phone Rubens Lee DNP Primary Care Provider +1 [phone] Reason for Visit * Consultation (Routine) - Closed Specialty Diagnoses / Procedures Referred By Brent t Referred To Contact Vascular Surgery Diagnoses bilat lymphodema Rubens Lee DNP [address] [place] [address] [facility] Vascular Surg [address] [place] [address] Referral ID Status Reason Start Date Expiration Date V isits Requested Visits Authorized [id number] Closed Consult, Test & Treat 08/15/2020 08/15/2021 2 2 Encounter Details Date Type Department Care Team (Late st Contact Info) Description 09/11/2020 1:00 PM EST Tech [place] [address] [place], [place], [place] Edema, unspecified [...] Text Report Department: Vascular Surgery Lab Patient: [id number] (DISHA VELARDE) CPT: 21194 ICD10: I83.811;R60.9 Referring Physician: TAY LOPEZ, ARNEL [...] VASCUBASE 09/11/2020 1:04 PM EST Tay Lopez OPTICAL ADVISOR VASCULAR ORDERABLE S Performing Organization Address City/State/[facility] Co de Phone Number VASCUBASE documented in this encounter Visit Diagnoses Diagnosis Edema, unspecified type documented in this encounter Care Teams Pantry Goods Maker Relationship Specialty Start Date End Date Rubens Lee DNP [address] [place] [address] PCP - General Family Medicine 09/11/20 09/15/23 documented as of this encounter
--- OUTSIDE RECORDS SUMMARY | 2024-08-17 16:27 | XMS_ITS | Encounter Summary ---
[place] [address] Care Team Providers Care Social Science Teacher Name Role Phone Ale Jenkins APRN Primary Care Provider +1- [phone] Encounter Details Date Type Department Care Team [...] on filedocumented in this encounter Care Teams Social Science Teacher Relationship Specialty Start Date End Date Ale Jenkins APRN [address] [place] [id number] PCP - General Family Medicine 09/16/23 documented as of this encounter
--- OUTSIDE RECORDS SUMMARY | 2024-08-17 16:27 | XMS_ITS | Encounter Summary ---
Author Organization [facility] [place] [address] Care Team Providers Care Art Supervisor Name Role Phone Unavailable Primary Care Provider Unavailabl e Encounter Details Date Type Department Care Team (Late st Contact Info) Description 08/15/2020 Orders Only [place] [address] Tay Lopez APRN Edema, unspecified type Social [...] Text Report Department: Vascular Surgery Lab Patient: [id number] (DISHA VELARDE) CPT: 14283 ICD10: I83.811;R60.9 Referring Physician: TAY LOPEZ APRN [...] VASCUBASE 09/11/2020 1:04 PM EST Tay Lopez TRADE SPECIALIST VASCULAR ORDERABLE S VASCUBASE documented in this encounter Visit Diagnoses Diagnosis Edema, unspecified type documented in this encounter
--- OUTSIDE RECORDS SUMMARY | 2024-08-17 16:27 | XMS_ITS | Encounter Summary ---
Author Organization [facility] [place] [address] Care Team Providers Care Rn Clinical Coordinator Name Role Phone Unavailable Primary Care Provider Unavailabl e Encounter Details Date Type Department Care Team (Late st Contact Info) Description 08/15/2020 3:20 PM EST Ancillary Procedure Radiology Library at [facility] [place]AR [place] [id number] Rubens Lee DNP [facility] [address] [place] [address] Social History Tobacco Use Types Packs/Day Years [...] only. Rubens BEAN FILM [facility] [place] documented in this encounter Visit Diagnoses Not on filedocumented in this encounter
--- OUTSIDE RECORDS SUMMARY | 2024-08-17 16:27 | XMS_ITS | Encounter Summary ---
Author Organization [facility] [place] [address] Care Team Providers Care Flight Technician Name Role Phone Ale Jenkins APRN Primary Care Provider +1- [phone] Reason for Visit * Reason Comments Skin Check * Consultation (Routine) - Closed Specialty Diagnoses / Procedures Referred By Brent thomas Referred To Contact Dermatology Diagnoses Disorder of pigmentation, unspecified Ale Jenkins APRN [address] [place] [address] Johnie Osuna MD [address] [place] [address], LEIGH[place] [address] Referral ID Status Reason Start Date Expiration Date Visits Re quested Visits Authorized [id number] Closed 09/16/2023 09/15/2024 1 1 Encounter Details Date Type Department Care Team (Late st Contact Info) Description 10/18/2023 9:45 AM EDT Office Visit Dermatology at [address] [address] Johnie Osuna MD [address] [place] [address], LEIGHANN Manjarrez DERMATOLOGY [place], [place] [id number] Psoriasis; History of atypical nevus Social History [...] tissue documented in this encounter Care Teams Flight Technician Relationship Specialty Start Date End Date Ale Jenkins APRN [address] [place] [address] PCP - General Family Medicine 09/16/23 documented as of this encounter
--- OUTSIDE RECORDS SUMMARY | 2024-08-17 16:27 | XMS_ITS | Encounter Summary ---
[place] [address] Care Team Providers Care Ham Pumper Name Role Phone Rubens Lee DNP Primary Care Provider [phone] [phone] Reason for Referral * Consultation (Routine) - Closed Specialty Diagnoses / Procedures Referred By Brent t Referred To Contact Bariatrics Diagnoses Morbid obesity Ale Jenkins APRN [address] [place] [id number] [facility] Gen Surgery [address] [address] Referral ID Status Reason Start Date Expiration Date V isits Requested Visits Authorized [id number] Closed Consult, Test & Treat PCP Updated and/or Approved 07/14/2023 07/13/2024 6 6 Encounter Details Date Type Department Care Team (Late st Contact Info) Description 07/14/2023 Transcribe Orders eDH Incoming Referrals [phone] Ale Jenkins APRN [address] [place] [phone] Morbid obesity Social History Tobacco Use Types [...] obesity documented in this encounter Care Teams Ham Pumper Relationship Specialty Start Date End Date Rubens Lee DNP [address] [place] [address] PCP - General Family Medicine 09/11/20 2 documented as of this encounter
--- OUTSIDE RECORDS SUMMARY | 2024-08-17 16:27 | XMS_ITS | Encounter Summary ---
Author Organization [facility] Address [facility] [place] [address] Care Team Providers Care Bill Checker Name Role Phone Rubens Lee DNP Primary Care Provider [phone] [phone] Reason for Visit * Consultation (Routine) - Closed Specialty Diagnoses / Procedures Referred By Contreji t Referred To Contact Vascular Surgery Diagnoses bilat lymphodema Rubens Lee DNP [address] [place] [address] [facility] Vascular Surg [address] [place] [address] Referral ID Status Reason Start Date Expiration Date V isits Requested Visits Authorized [id number] Closed Consult, Test & Treat 08/15/2020 08/15/2021 2 2 Encounter Details Date Type Department Care Team (Late st Contact Info) Description 09/11/2020 3:00 PM EST Office [place] [address] Stewart Berger MD [facility] [place] [address] Chronic pain of right knee [...] knee documented in this encounter Care Teams Bill Checker Relationship Specialty Start Date End Date Rubens Lee DNP [address] [place] [address] PCP - General Family Medicine 09/11/20 09/15/23 documented as of this encounter
--- OUTSIDE RECORDS SUMMARY | 2024-08-17 16:27 | XMS_ITS | Clinical Summary ---
Author Organization [facility] [place] [address] Care Team Providers Care Delivery Table Operator Name Role Phone Ale Jenkins ARNEL Primary Care Provider +1- [phone] Allergies Active Allergy Reactions Criticality Noted Date [...] - Influenza standard series) 03/18/2024 Care Teams Delivery Table Operator Relationship Specialty Start Date End Date Ale Jenkins APRN [address] [place] [address] PCP - General Family Medicine 09/16/23
[2024-08-17 16:59] LABS: BE (Venous) 2 mmol/L (-2-3); HCO3 (Venous) 28 mmol/L (23-28); O2 Sat (Venous) 92 %; TCO2 (Venous) 24 mmol/L (24-29); pCO2 (Venous) 53 mmHg (41-51); pH (Venous) 7.33 (7.31-7.41); pO2 (Venous) 62 mmHg
[2024-08-17 17:19] LABS: Troponin I 20 ng/L (<or=51)
--- NOTE | 2024-08-17 19:00 | W.PC.ACHO ---
Registration Status: Primary Language: Preferred Language: ED Information & Data Chief Complaint RespSymp 08/17/24 13:35 Triage Note respiratory symptoms x 3 08/17/24 12:17 days. inhalers not helping. has tried tylenol, dayquil and nyquil. feels dizzy today. fever and cold chills on the first day. now just feels cold. green to clear mucous. has allergies but denies hx lung disease. feels very fatigued. Medical / Surgical History (Last Reviewed 08/17/24 @ 13:42 by Renate Tai MD) IUD (intrauterine device) in place Hammertoe of right foot Bursitis of right shoulder [facility] Asthma Onychomycosis Knee pain, right Superficial thrombophlebitis Fatigue Constipation Obesity, Class III, BMI 40-49.9 (morbid obesity) Osteoarthritis (Last Reviewed 08/17/24 @ 13:42 by Renate Tai MD) Excision, Skin Mass Colonoscopy - MAC (10/25/16) Most Recent Vital Signs Temperature 36.8 C 08/17/24 16:42 Temperature Source Temporal Artery Scan 08/17/24 16:42 Pulse 101 H 08/17/24 16:30 Pulse 86 08/17/24 15:40 Respiratory Rate 24 08/17/24 16:30 Respiratory Effort Short of Breath, Labored, Accessory Muscle Use, Incrsd Work of Breathing 08/17/24 12:57 Respiratory Depth Normal 08/17/24 12:57 Blood Pressure 147/88 H 08/17/24 15:31 Blood Pressure Mean 105 08/17/24 15:31 Blood Pressure Position Sitting 08/17/24 12:17 Pulse Oximetry 92 08/17/24 16:30 Oxygen Delivery Method Room Air 08/17/24 16:42 Oxygen Flow Rate 0 08/17/24 16:42 Fraction of Inspired Oxygen (FIO2) 28 08/17/24 16:30 Pain Level 0 08/17/24 15:54 Allergies ibuprofen Allergy (Unknown, Verified 08/17/24 12:46) Skin Rash hives Precautions Isolation PUI 08/17/24 12:57 Active Medications Generic Name Dose Route Start Last Admin Trade Name Freq PRN Reason Stop Dose Admin Albuterol/Ipratropium 3 ml 08/17/24 16:00 08/17/24 18:07 Albuterol/Ipratropium 3 Ml Upd Vial UPD Not Given Q6H SHIKHA Albuterol Sulfate 10 mg/ 0 mg 08/17/24 12:45 08/17/24 12:42 Sodium Chloride 9 ml UPD 10 mg DIRECTED SHIKHA Administration IV IV Catheter Type [Right Saline Lock Antecubital] IV Catheter Type [Left Saline Lock Antecubital] IV Catheter Gauge [Right 18 Antecubital] IV Catheter Gauge [Left 18 Antecubital] Diet Orders Category Date Time Status Regular/Normal [DIET] Nutrition 08/17/24 Dinner Active Diagnostics 08/17/24 08/17/24 08/17/24 Range/Units 16:52 15:45 13:24 WBC (4.4-10.8) 10^3/uL RBC (3.93-5.22) 10^6/uL Hgb (11.2-15.7) g/dL Hct (36.0-46.0) % MCV (80-95) fL MCH (27.0-33.0) pg MCHC (32.0-36.0) % RDW (11.7-14.6) % Plt Count (130-400) 10^3/uL MPV (8.0-11.0) fL Immature Gran % Neutrophils % % Lymphocytes % % Monocytes % % Eosinophils % % Basophils % % Nucleated RBC % (0.0-0.3) % Absolute Neutrophils (1.2-6.7) 10^3/uL Absolute Lymphocytes (1.2-3.4) 10^3/uL Absolute Monocytes (0.1-0.8) 10^3/uL Absolute Eosinophils (0.0-0.7) 10^3/uL Absolute Basophils (0.0-0.2) 10^3/uL RBC Morphology VBG pH 7.33 7.31 (7.31-7.41) VBG pCO2 53 H 55 H (41-51) mmHg VBG pO2 62 56 mmHg VBG HCO3 28 27 (23-28) mmol/L VBG Total CO2 24 24 (24-29) mmol/L VBG O2 Saturation 92 88 % VBG Base Excess 2 1 (-2-3) mmol/L Sodium (136-145) mmol/L Potassium (3.5-5.1) mmol/L Chloride (98-107) mmol/L Carbon Dioxide (21.0-32.0) mmol/L Anion Gap (3-11) mmol/L BUN (7-18) mg/dL Creatinine (0.55-1.02) mg/dL Est GFR (CKD-EPI 2020) (mL/min/1.73m2) Glucose (74-106) mg/dL Calcium (8.5-10.1) mg/dL Total Bilirubin (0.2-1.0) mg/dL AST (15-37) U/L ALT (14-59) U/L Alkaline Phosphatase (46-116) U/L Troponin I 20 18 (<or=51) ng/L NT-Pro-B Natriuret Pep (<300) pg/mL Total Protein (6.4-8.2) g/dL Albumin (3.4-5.0) g/dL COVID-19 Source SARS-CoV-2 (PCR) (Negative) Influenza Type A (PCR) (Negative) Influenza Type B (PCR) (Negative) Urine Legionella Ag Pending RSV (PCR) (Negative) 08/17/24 08/17/24 Range/Units 12:47 12:34 WBC 7.12 (4.4-10.8) 10^3/uL RBC 5.95 H (3.93-5.22) 10^6/uL Hgb 17.6 H (11.2-15.7) g/dL Hct 55.4 H (36.0-46.0) % MCV 93 (80-95) fL MCH 29.6 (27.0-33.0) pg MCHC 31.8 L (32.0-36.0) % RDW 14.2 (11.7-14.6) % Plt Count 315 (130-400) 10^3/uL MPV 9.4 (8.0-11.0) fL Immature Gran % See Differential Neutrophils % 72.0 % Lymphocytes % 12.0 % Monocytes % 12.0 % Eosinophils % 3.0 % Basophils % 1.0 % Nucleated RBC % 0.0 (0.0-0.3) % Absolute Neutrophils 5.13 (1.2-6.7) 10^3/uL Absolute Lymphocytes 0.85 L (1.2-3.4) 10^3/uL Absolute Monocytes 0.85 H (0.1-0.8) 10^3/uL Absolute Eosinophils 0.21 (0.0-0.7) 10^3/uL Absolute Basophils 0.07 (0.0-0.2) 10^3/uL RBC Morphology Normal VBG pH 7.31 (7.31-7.41) VBG pCO2 59 H (41-51) mmHg VBG pO2 36 mmHg VBG HCO3 30 H (23-28) mmol/L VBG Total CO2 27 (24-29) mmol/L VBG O2 Saturation 66 % VBG Base Excess 4 H (-2-3) mmol/L Sodium 139 (136-145) mmol/L Potassium 4.9 (3.5-5.1) mmol/L Chloride 101 (98-107) mmol/L Carbon Dioxide 30.1 (21.0-32.0) mmol/L Anion Gap 7.9 (3-11) mmol/L BUN 9 (7-18) mg/dL Creatinine 0.9 (0.55-1.02) mg/dL Est GFR (CKD-EPI 2020) 74.10 (mL/min/1.73m2) Glucose 102 (74-106) mg/dL Calcium 9.0 (8.5-10.1) mg/dL Total Bilirubin 0.24 (0.2-1.0) mg/dL AST 27 (15-37) U/L ALT 38 (14-59) U/L Alkaline Phosphatase 128 H (46-116) U/L Troponin I 19 (<or=51) ng/L NT-Pro-B Natriuret Pep 546 H (<300) pg/mL Total Protein 8.2 (6.4-8.2) g/dL Albumin 3.6 (3.4-5.0) g/dL COVID-19 Source Nasopharynx SARS-CoV-2 (PCR) Negative (Negative) Influenza Type A (PCR) Positive A (Negative) Influenza Type B (PCR) Negative (Negative) Urine Legionella Ag RSV (PCR) Negative (Negative) 08/17/24 16:52 Blood Culture - Pending Blood 08/17/24 13:24 Blood Culture - Pending Blood Intake and Output - 24 Hour Total 08/17/24 12:11 thru 08/17/24 18:36 Intake Total 300 Balance 300 Weight 150 kg Intake: IV 300 Other: Comment Occasional nocturnal urgency Falls Risk Assessment History of Falls No History 08/17/24 13:03 Fall Total Score 0 08/17/24 13:03 Level of Risk Standard/Low Risk 08/17/24 13:03 Problems Flu (Acute) Pneumonia (Acute) Respiratory failure (Acute) Smoker (Acute 09/26/13) Notes 08/17/24 12:59 Respiratory by Amor Brooks RT Initial Evalutation/Assessment Start: 08/17/24 12:46 Freq: ONCE Status: Active Protocol: Document 08/17/24 12:47 (Rec: 08/17/24 12:59 [id number]) RT Assessment Pulmonary History Pulmonary History COPD Smoking History Smoking/Tobacco Use Status Current every day Tobacco: How many years used 42 Tobacco Type cigarettes Packs per Day 1 Cigarettes per Day 20 Years smoked 42 Smoking packs per day 1 OXYGEN HISTORY: Supplemental O2 At Rest 0 With Exertion 0 CPAP Can use home machine N/A BIPAP Can you home machine N/A Trilogy/AVAPS Can use home machine N/A DME/Compliance DME N/A Compliance N/A Current Respiratory Symptoms Current Respiratory Symptoms Cough,Shortness of breath, Sputum production,Wheezing Activity Activity Level Pt normally is able to walk dogs and do her own grocery shopping at [facility] Respiratory Breath Sounds Breath Sounds Faint wheezing or rhonci, decreased sounds throughout Pulse Rate <100 Respiratory Rate 26-32 Shortness of Breath At rest Respiratory Therapy Score Total 6 Assessment and Plan RT Treatment Protocol Bronchodilator Aerosol Therapy Protocol,Lung Expansion Therapy Protocol,Bronchial Hygiene Therapy Protocol Note Pt uses Symbicort MDI 80/4.5, 2 puffs BID - when she remembers to take it. Also has Albuterol MDI PRN for rescue inhaler. On arrival to the ED today, pt's Symbicort inhaler is empty - states she has another one at home, and the albuterol inhaler has 8 puffs left. At baseline, pt is active and able to perform ADLs, do her own grocery shopping, and walk her dogs independently. Pt does not use any oxygen or NIV machines at home. Pt states she is still currently smoking aprx 1 pack of cigarettes a day. 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 Given Moderate score of 6 on this assessment, pt will be given 10mg continuous albuterol nebulizer, acapella, incentive spirometer, respiratory viral testing, and nursing is obtaining VBG to determine possible need for NIV. Initialized on 08/17/24 12:59 - END OF NOTE v v v v v v v v v Sending and/or Receiving Nurses: Please use comment section below to note any information pertinent to the patient hand-off not included above. Information / Comments: [id number] All questions answered Report received from:Teena Penn RN
[2024-08-17] MEDS: Enoxaparin 40 MG/0.4 ML SYR SC (19:36)
[2024-08-17] MEDS: Normal Saline Flush 10 ML SYR IVP (19:37)
[2024-08-17] MEDS: Budesonide/Formoterol 80/4.5 6.9 GM 60 PUFF INH IH (19:51)
[2024-08-17] MEDS: Albuterol/Ipratropium 3 ML UPD VIAL UPD (22:20)
[2024-08-17 23:15] LABS: Legionella Ag Detection Urine Negative (Negative)
[2024-08-17] MEDS: methylPREDNISolone SUCC 40 MG VIAL 80 MG IVP (23:35)
[2024-08-18] VITALS (34 sets, daily range): BP systolic 114–138; BP diastolic 64–88; PULSE 63–80; RESP 3–29; TEMP 31–37.1; O2SAT 23–97
[2024-08-18] MEDS: Albuterol/Ipratropium 3 ML UPD VIAL UPD ×4 (03:50→21:30)
[2024-08-18] MEDS: Acetaminophen 325 MG TAB PO ×2 (04:10→11:16)
[2024-08-18 07:09] LABS: Abs Immature Grans 0.04 10^3/uL (0.0-0.06); Absolute Basophil Count 0.01 10^3/uL (0.0-0.2); Absolute Eosinophil Count 0.04 10^3/uL (0.0-0.7); Absolute Lymphocyte Count 0.63 10^3/uL (1.2-3.4); Absolute Monocyte Count 0.63 10^3/uL (0.1-0.8); Absolute Neutrophil Count 7.51 10^3/uL (1.2-6.7); Basophils % 0.1 %; Eosinophils % 0.5 %; HCT 51.1 % (36.0-46.0); HGB 16.2 g/dL (11.2-15.7); Immature Grans % 0.5 %; Lymphocytes % 7.1 %; MCH 29.2 pg (27.0-33.0); MCHC 31.7 % (32.0-36.0); MCV 92 fL (80-95); MPV 10.3 fL (8.0-11.0); Monocytes % 7.1 %; Neutrophils % 84.7 %; Platelet Count 316 10^3/uL (130-400); RBC 5.55 10^6/uL (3.93-5.22); RDW 14.3 % (11.7-14.6); RDW-SD 49.1 fL; WBC 8.86 10^3/uL (4.4-10.8)
[2024-08-18 07:13] LABS: ESR 55 mm/hr (0-30)
[2024-08-18 07:31] LABS: ALT 28 U/L (14-59); AST 20 U/L (15-37); Alkaline Phosphatase 108 U/L (46-116); Anion Gap 6.2 mmol/L (3-11); BUN 19 mg/dL (7-18); Bilirubin, Total 0.13 mg/dL (0.2-1.0); CO2 30.8 mmol/L (21.0-32.0); Calcium 9.2 mg/dL (8.5-10.1); Chloride 103 mmol/L (98-107); Glucose 169 mg/dL (74-106); Potassium 4.2 mmol/L (3.5-5.1); Sodium 140 mmol/L (136-145); Total Protein 7.8 g/dL (6.4-8.2)
[2024-08-18] MEDS: Budesonide/Formoterol 80/4.5 6.9 GM 60 PUFF INH IH ×2 (07:53→19:45)
--- NOTE | 2024-08-18 08:30 | DI.RAD_ITS ---
Exam(s) XR PORTABLE CHEST AP EXAM: XR PORTABLE CHEST AP CLINICAL HISTORY: cap TECHNIQUE: 2D digital imaging was performed of the chest. One image was obtained. An AP view was ob tained. COMPARISON: CR XR CHEST 2V PA LATERAL from 07/03/2019 CR XR PORTABLE CHEST AP from 08/17/2024 FINDINGS: MEDIASTINUM: Normal. HEART: Normal. PULMONARY VASCULATURE: Normal. LUNGS: There is linear scarring again seen in the lateral aspect of the left lung. No focal consolid ating infiltrates are seen. The may be mild increased interstitial markings which can be seen with i nterstitial edema. PLEURAL SPACE: No pleural effusion or pneumothorax. BONE:Within normal limits for the patient's age. OTHER FINDINGS:Normal. IMPRESSION: There is mild interstitial prominence which may be seen with interstitial edema. No focal consolidat ing infiltrates are present. DATA REPOSITORY: RADIATION DOSE DELIVERED:
--- NOTE | 2024-08-18 09:01 | DI.VRAD_ITS ---
PROCEDURE INFORMATION: Exam: XR Chest Exam date and time: 08/18/2024 8:56 AM Age: 59 years old Clinical indication: Other: Cap TECHNIQUE: Imaging protocol: Radiologic exam of the chest. Views: 1 view. COMPARISON: CR XR PORTABLE CHEST AP 08/17/2024 1:21 PM FINDINGS: Lungs: Mild increased interstitial markings in both lungs. Pleural spaces: No large pleural effusion seen. Heart/Mediastinum: No cardiomegaly. Bones/joints: No acute abnormality. IMPRESSION: Mildly increased interstitial markings suggesting edema. Infection is a differential consideration. Follow-up as clinically warranted. Dictated and Authenticated by: Katt Loyola MD. Orderin Ravinder Sotelo MD
[2024-08-18] MEDS: methylPREDNISolone SUCC 40 MG VIAL 80 MG IVP (09:51)
[2024-08-18] MEDS: Enoxaparin 40 MG/0.4 ML SYR SC ×2 (09:51→21:55)
[2024-08-18] MEDS: Furosemide 20 MG TAB PO (09:51)
[2024-08-18] MEDS: Normal Saline Flush 10 ML SYR IVP ×4 (09:53→21:55)
--- NOTE | 2024-08-18 12:55 | PGE_ITS ---
Date of Service Date of service: 08/18/24 Time of Service: 12:54 Assessment and Plan Assessment and plan (1) Smoker: Status: Acute Assessment and plan: added nicoderm (2) Respiratory failure: Status: Acute Assessment and plan: c/w bipap. restarted inhalers and will start on steroids as well 08/18/24 Pt remains on steroids/albuter/duoneb. Pt on methyprednisolone at a fairly high dose. Will decrease 2/2 some agitation (3) Pneumonia: Status: Acute Assessment and plan: Blood cultures pending. On rocephin and zmax Blood cultures are pending type and resistance (4) Flu: Status: Acute Assessment and plan: c/w tamiflu Subjective Subjective Interval history since last seen: Pt seen and examined. POC d/w pt as well as bedside nurse during ICU huddle. Pt still with some respiratory distress Exam Narrative Exam Narrative: Head eyes ears nose and throat: Normocephalic atraumatic mucous membranes moist oropharynx is clear Neck: No lymphadenopathy no JVD no thyromegaly Pulm: Bilateral wheeze with significant accessory muscle use and decreased ability to speak without symptomology. Right sided crackles as well Cardiovascular: Regular rate and rhythm no murmur rubs gallops Abdomen: Soft nontender nondistended bowel sounds active Extremities: Lymphedema bilaterally lower extremities Neurologic: Cranial nerves II through XII intact as tested reflexes in upper lower extremity normal as tested General: 59-year-old female who appears older than her stated age. Objective Last Vital Signs Temp 36.6 C 08/18/24 10:11 Pulse 71 08/18/24 10:12 Resp 23 08/18/24 10:12 BP 135/87 08/18/24 10:12 Pulse Ox 92 08/18/24 10:12 Laboratory Results - last 24 hr 08/17/24 08/17/24 08/17/24 12:34 12:47 13:24 WBC 7.12 RBC 5.95 H Hgb 17.6 H Hct 55.4 H MCV 93 MCH 29.6 MCHC 31.8 L RDW 14.2 Plt Count 315 MPV 9.4 Immature Gran % See Differential Neutrophils % 72.0 Lymphocytes % 12.0 Monocytes % 12.0 Eosinophils % 3.0 Basophils % 1.0 Nucleated RBC % 0.0 Absolute Neutrophils 5.13 Absolute Lymphocytes 0.85 L Absolute Monocytes 0.85 H Absolute Eosinophils 0.21 Absolute Basophils 0.07 RBC Morphology Normal ESR VBG pH 7.31 VBG pCO2 55 H VBG pO2 56 VBG HCO3 27 VBG Total CO2 24 VBG O2 Saturation 88 VBG Base Excess 1 Sodium 139 Potassium 4.9 Chloride 101 Carbon Dioxide 30.1 Anion Gap 7.9 BUN 9 Creatinine 0.9 Est GFR (CKD-EPI 2020) 74.10 Glucose 102 Calcium 9.0 Total Bilirubin 0.24 AST 27 ALT 38 Alkaline Phosphatase 128 H Troponin I 19 18 NT-Pro-B Natriuret Pep 546 H Total Protein 8.2 Albumin 3.6 COVID-19 Source Nasopharynx SARS-CoV-2 (PCR) Negative Influenza Type A (PCR) Positive A Influenza Type B (PCR) Negative RSV (PCR) Negative 08/17/24 08/18/24 16:52 05:55 WBC 8.86 RBC 5.55 H Hgb 16.2 H Hct 51.1 H MCV 92 MCH 29.2 MCHC 31.7 L RDW 14.3 Plt Count 316 MPV 10.3 Immature Gran % 0.5 Neutrophils % 84.7 Lymphocytes % 7.1 Monocytes % 7.1 Eosinophils % 0.5 Basophils % 0.1 Nucleated RBC % 0.0 Absolute Neutrophils 7.51 H Absolute Lymphocytes 0.63 L Absolute Monocytes 0.63 Absolute Eosinophils 0.04 Absolute Basophils 0.01 RBC Morphology ESR 55 H VBG pH 7.33 VBG pCO2 53 H VBG pO2 62 VBG HCO3 28 VBG Total CO2 24 VBG O2 Saturation 92 VBG Base Excess 2 Sodium 140 Potassium 4.2 Chloride 103 Carbon Dioxide 30.8 Anion Gap 6.2 BUN 19 H Creatinine 1.0 Est GFR (CKD-EPI 2020) 65.30 Glucose 169 H Calcium 9.2 Total Bilirubin 0.13 L AST 20 ALT 28 Alkaline Phosphatase 108 Troponin I 20 NT-Pro-B Natriuret Pep Total Protein 7.8 Albumin 3.0 L COVID-19 Source SARS-CoV-2 (PCR) Influenza Type A (PCR) Influenza Type B (PCR) RSV (PCR) Time Spent with Patient Time Spent with Patient: 25-34 minutes Time was spent: preparing to see the patient(eg.review tests), ordering medications,tests, procedures, referring, communicating with other health home day care provider, indepentently interpreting results, counseling the patient and care coordination
--- NOTE | 2024-08-18 13:28 | PDOC.CMIN ---
Date of service: 08/18/24 Time of Service: 13:28 Care Management Initial Assmt Initial Assessment Reason for Hospitalization: COPD Functional Status/Living Situation Patient Presentation: Disha was sitting up in her chair when CM met with her. She was pleasant and engaged well in conversation. Per RN, she continues to require high flow O2; she does not have supplemental O2 at baseline. Disha stated that she lives in [place] with her ex , Jose Antonio. 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 Per MD, she will continue to be closely monitored while the O2 is weaned down, as tolerated. No anticipated discharge needs at this time. CM will continue to follow. Town of Residence: [place] Resides with: Spouse (ex ) Significant Other/Family: [facility] Employment Status: Employed (owns a consignment shop) Instrumental Activities of Daily Living (ADLs): Independent Medications Medication Management: No Issues/Barriers identified Advance Directives Advance Directives: Do you have an Advance Directive: N 11/22/19 11:58 AD On File at [facility]: N 11/22/19 11:58 Date Asked 08/17/24 08/17/24 12:24 AD Date Reviewed COLST On File at [facility] COLST Date Scanned Code Status Resuscitation Status Full Code Insurance Coverage/Financial Issues Insurance: [facility] Care Team Visit Care Team Role Provider Type Ale Jenkins Primary Care Provider NURSE PRACTITIONER More Junior Other Providers SURVEILLANCE TECHNICIAN Kathleen Cantu Other Providers SURVEILLANCE TECHNICIAN Angelica Davis Other Providers SURVEILLANCE TECHNICIAN Helen Arredondo RN Other Providers SURVEILLANCE TECHNICIAN Renate Tai MD Emergency Provider [facility] STAFF PHYSICIAN Deepak Castellon MD Admit Provider [facility] STAFF PHYSICIAN Attending Provider Discharge Potential Discharge Needs: PCP F/U Appt Anticipated Barriers to Discharge: None Identified Patient/Family Education Needs: Review discharge instructions, discuss Ask Me Three Transportation: Private vehicle Plan: Anticipate Disha will return home once medically cleared. She will transport home via private vehicle by family, and will follow up with her PCP and discharge plan of care. CM will continue to follow. Social Determinants of Health Screening Will the Patient Participate in the Screening?: Declined to provide Social Determinants of Health Comments(SDOH Details): pt unstable at time of assessment PFSH All Active Problems (Updated 08/17/24 @ 16:26 by ROSS RUSSO) Flu (Acute) Pneumonia (Acute) Respiratory failure (Acute) Influenza A (Acute) Osteoarthritis of left knee (Acute) Steroid injection: 08/03/2024 Diverticulosis (Acute) Colon polyps (Acute) Adenoma determined by colorectal biopsy (Acute 10/25/16) sessile serrated adenoma of ascending colon Benign neoplasm of hand (Acute 10/22/13) Dysphonia (Acute 09/26/13) Neoplasm of skin (Acute 09/26/13) Smoker (Acute 09/26/13) Peripheral polyneuropathy (Acute 08/11/17) Constipation (Acute) Pre-op evaluation (Acute) Medical History IUD (intrauterine device) in place Hammertoe of right foot Bursitis of right shoulder [place] Asthma Onychomycosis Knee pain, right Superficial thrombophlebitis Fatigue Constipation Obesity, Class III, BMI 40-49.9 (morbid obesity) Osteoarthritis Surgical History Excision, Skin Mass Colonoscopy - MAC (10/25/16) 12/07/19 Family History Mother Cervical cancer Social History Smoking/Tobacco Use Status: Current every day Tobacco Type: cigarettes Smoking packs per day: 1 Smoking cigarettes per day: 20.0 Years smoked: 35 Smoking pack-years: 35.00 Tobacco: How many years used: 42 Smoking risk assessment performed?: Yes Alcohol Intake: never Drug use: Never Substance use type: does not use Details: pt. reports she smokes 10-20 cigarettes/day Housing: other Current gender identity: female Do you feel safe at home: Yes Do you feel safe in your relationship?: Yes
[2024-08-18] MEDS: MORPHine 2 MG/ML SYR 0.5 MG IVP (13:38)
[2024-08-18] MEDS: methylPREDNISolone SUCC 40 MG VIAL 60 MG IVP (18:02)
[2024-08-19] VITALS (31 sets, daily range): BP systolic 120–153; BP diastolic 63–99; PULSE 57–84; RESP 2–34; TEMP 36.5–36.9; O2SAT 82–96
[2024-08-19] MEDS: methylPREDNISolone SUCC 40 MG VIAL 60 MG IVP ×3 (02:05→18:07)
[2024-08-19] MEDS: Normal Saline Flush 10 ML SYR IVP ×6 (02:06→20:29)
[2024-08-19] MEDS: Albuterol/Ipratropium 3 ML UPD VIAL UPD ×2 (03:18→08:55)
[2024-08-19 06:10] LABS: Abs Immature Grans 0.08 10^3/uL (0.0-0.06); HCT 53.6 % (36.0-46.0); HGB 16.8 g/dL (11.2-15.7); MCH 29.2 pg (27.0-33.0); MCHC 31.3 % (32.0-36.0); MCV 93 fL (80-95); Platelet Count 330 10^3/uL (130-400); RBC 5.75 10^6/uL (3.93-5.22); RDW-SD 48.5 fL; WBC 16.56 10^3/uL (4.4-10.8)
[2024-08-19 06:34] LABS: ALT 37 U/L (14-59); AST 23 U/L (15-37); Alkaline Phosphatase 101 U/L (46-116); Anion Gap 2.3 mmol/L (3-11); BUN 23 mg/dL (7-18); Bilirubin, Total 0.18 mg/dL (0.2-1.0); CO2 34.7 mmol/L (21.0-32.0); Calcium 9.1 mg/dL (8.5-10.1); Chloride 103 mmol/L (98-107); Glucose 143 mg/dL (74-106); Potassium 4.7 mmol/L (3.5-5.1); Sodium 140 mmol/L (136-145); Total Protein 7.9 g/dL (6.4-8.2)
[2024-08-19 06:39] LABS: Absolute Lymphocyte Count 0.99 10^3/uL (1.2-3.4); Absolute Monocyte Count 0.66 10^3/uL (0.1-0.8); Atypical Lymphocytes % 0 %; Bands % 0 %; Diff Comment Manual Differential
[2024-08-19] MEDS: Budesonide/Formoterol 80/4.5 6.9 GM 60 PUFF INH IH ×2 (08:53→20:14)
[2024-08-19] MEDS: Furosemide 20 MG TAB PO (10:06)
[2024-08-19] MEDS: Enoxaparin 40 MG/0.4 ML SYR SC ×2 (10:07→20:28)
--- NOTE | 2024-08-19 11:46 | PGE_ITS ---
Date of Service Date of service: 08/19/24 Time of Service: 11:46 Assessment and Plan Assessment and plan (1) Smoker: Status: Acute Assessment and plan: added nicoderm (2) Respiratory failure: Status: Acute Assessment and plan: c/w bipap. restarted inhalers and will start on steroids as well 08/18/24 Pt remains on steroids/albuter/duoneb. Pt on methyprednisolone at a fairly high dose. Will decrease 2/2 some agitation 08/19/24 c/w albuterol/duoneb/augmentin/budesonide/formoterol (3) Pneumonia: Status: Acute Assessment and plan: Blood cultures pending. On rocephin and zmax Blood cultures are pending type and resistance 08/19/24 Blood cultures negative at 24 hours (4) Flu: Status: Acute Assessment and plan: c/w tamiflu 08/19/24 Tamiflu completed Subjective Subjective Interval history since last seen: Pt seen and examined in her room this am. Pt states that she is feeling much better and does have a decreasing oxygen requirement Exam Narrative Exam Narrative: Head eyes ears nose and throat: Normocephalic atraumatic mucous membranes moist oropharynx is clear Neck: No lymphadenopathy no JVD no thyromegaly Pulm: mild amu and mild expiratory wheeze. Looks more comfortable Cardiovascular: Regular rate and rhythm no murmur rubs gallops Abdomen: Soft nontender nondistended bowel sounds active Extremities: Lymphedema bilaterally lower extremities Neurologic: Cranial nerves II through XII intact as tested reflexes in upper lower extremity normal as tested General: 59-year-old female who appears older than her stated age. Objective Last Vital Signs Temp 36.7 C 08/19/24 08:46 Pulse 74 08/19/24 10:24 Resp 18 08/19/24 08:55 BP 128/85 08/19/24 10:24 Pulse Ox 90 L 08/19/24 10:24 Laboratory Results - last 24 hr 08/19/24 05:35 WBC 16.56 H RBC 5.75 H Hgb 16.8 H Hct 53.6 H MCV 93 MCH 29.2 MCHC 31.3 L RDW 14.0 Plt Count 330 MPV 10.0 Immature Gran % 0.0 Neutrophils % 90.0 Band Neutrophils % 0 Lymphocytes % 6.0 Atypical Lymphs % 0 Monocytes % 4.0 Eosinophils % 0.0 Basophils % 0.0 Nucleated RBC % 0.0 Absolute Neutrophils 14.90 H Absolute Lymphocytes 0.99 L Absolute Monocytes 0.66 Absolute Eosinophils 0.00 Absolute Basophils 0.00 Sodium 140 Potassium 4.7 Chloride 103 Carbon Dioxide 34.7 H Anion Gap 2.3 L BUN 23 H Creatinine 1.0 Est GFR (CKD-EPI 2020) 65.30 Glucose 143 H Calcium 9.1 Total Bilirubin 0.18 L AST 23 ALT 37 Alkaline Phosphatase 101 Total Protein 7.9 Albumin 3.0 L Time Spent with Patient Time Spent with Patient: 25-34 minutes Time was spent: preparing to see the patient(eg.review tests), ordering medications,tests, procedures, referring, communicating with other health client care representative, indepentently interpreting results, counseling the patient and care coordination
[2024-08-19] MEDS: Furosemide 20 MG/2 ML VIAL IVP (16:41)
--- NOTE | 2024-08-19 18:26 | NUR.NOTE ---
[facility]. [facility], Nursing Note:
--- NOTE | 2024-08-19 18:29 | W.PC.ACHO ---
Registration Status: Primary Language: Preferred Language: ED Information & Data Chief Complaint RespSymp 08/17/24 13:35 Triage Note respiratory symptoms x 3 08/17/24 12:17 days. inhalers not helping. has tried tylenol, dayquil and nyquil. feels dizzy today. fever and cold chills on the first day. now just feels cold. green to clear mucous. has allergies but denies hx lung disease. feels very fatigued. Medical / Surgical History (Last Reviewed 08/17/24 @ 13:42 by Renate Tai MD) IUD (intrauterine device) in place Hammertoe of right foot Bursitis of right shoulder [place] Asthma Onychomycosis Knee pain, right Superficial thrombophlebitis Fatigue Constipation Obesity, Class III, BMI 40-49.9 (morbid obesity) Osteoarthritis (Last Reviewed 08/17/24 @ 13:42 by Renate Tai MD) Excision, Skin Mass Colonoscopy - MAC (10/25/16) Most Recent Vital Signs Temperature 36.8 C 08/19/24 18:27 Temperature Source Temporal Artery Scan 08/19/24 18:27 Pulse 84 08/19/24 18:27 Pulse 70 08/19/24 13:01 Respiratory Rate 18 08/19/24 18:27 Respiratory Effort Short of Breath, Labored, Accessory Muscle Use, Incrsd Work of Breathing 08/17/24 12:57 Respiratory Depth Normal 08/17/24 12:57 Blood Pressure 144/88 H 08/19/24 18:27 Blood Pressure Mean 109 08/19/24 16:54 Blood Pressure Position Sitting 08/17/24 12:17 Pulse Oximetry 92 08/19/24 18:27 Oxygen Delivery Method Nasal Cannula 08/19/24 18:27 Oxygen Flow Rate 2 08/19/24 18:27 Fraction of Inspired Oxygen (FIO2) 35 08/18/24 13:53 Pain Level 0 08/19/24 18:27 Allergies ibuprofen Allergy (Unknown, Verified 08/17/24 12:46) Skin Rash hives Precautions Isolation PUI 08/17/24 12:57 Active Medications Generic Name Dose Route Start Last Admin Trade Name Freq PRN Reason Stop Dose Admin Acetaminophen 0 mg 08/17/24 14:32 08/18/24 11:16 Acetaminophen 325 Mg Tab PO 650 mg Q4H PRN PRN Administration Budesonide/Formoterol Fumarate 2 puff 08/17/24 20:00 08/19/24 08:53 Budesonide/Formoterol 80/4.5 6.9 Gm 60 Puff Inh IH 2 puffs BID SHIKHA Administration Albuterol Sulfate 10 mg/ 0 mg 08/17/24 12:45 08/17/24 12:42 Sodium Chloride 9 ml UPD 10 mg DIRECTED SHIKHA Administration Enoxaparin Sodium 40 mg 08/17/24 20:00 08/19/24 10:07 Enoxaparin 40 Mg/0.4 Ml Syr SC 40 mg BID SHIKHA Administration Furosemide 20 mg 08/18/24 08:30 08/19/24 10:06 Furosemide 20 Mg Tab PO 20 mg DAILY SHIKHA Administration Furosemide 20 mg 08/19/24 16:00 08/19/24 16:41 Furosemide 20 Mg/2 Ml Vial IVP 20 mg BID@0800,1600 SHIKHA Administration Methylprednisolone Sodium Succinate 60 mg 08/18/24 18:00 08/19/24 18:07 Methylprednisolone Succ 40 Mg Vial IVP 60 mg Q8H SHIKHA Administration Morphine Sulfate 0.5 mg 08/18/24 12:53 08/18/24 13:38 Morphine 2 Mg/Ml Syr IVP 0.25 ml Q4H PRN PRN Administration Sodium Chloride 0 ml 08/17/24 12:32 08/19/24 18:07 Normal Saline Flush 10 Ml Syr IVP 20 ml PRN PRN Administration Sodium Chloride 0 ml 08/17/24 20:00 08/19/24 10:07 Normal Saline Flush 10 Ml Syr IVP 30 ml BID SHIKHA Administration IV IV Catheter Type [Right Saline Lock Antecubital] IV Catheter Type [Left Saline Lock Antecubital] IV Catheter Gauge [Right 18 Antecubital] IV Catheter Gauge [Left 18 Antecubital] Diagnostics 08/19/24 Range/Units 05:35 WBC 16.56 H (4.4-10.8) 10^3/uL RBC 5.75 H (3.93-5.22) 10^6/uL Hgb 16.8 H (11.2-15.7) g/dL Hct 53.6 H (36.0-46.0) % MCV 93 (80-95) fL MCH 29.2 (27.0-33.0) pg MCHC 31.3 L (32.0-36.0) % RDW 14.0 (11.7-14.6) % Plt Count 330 (130-400) 10^3/uL MPV 10.0 (8.0-11.0) fL Immature Gran % 0.0 % Neutrophils % 90.0 % Band Neutrophils % 0 % Lymphocytes % 6.0 % Atypical Lymphs % 0 % Monocytes % 4.0 % Eosinophils % 0.0 % Basophils % 0.0 % Nucleated RBC % 0.0 (0.0-0.3) % Absolute Neutrophils 14.90 H (1.2-6.7) 10^3/uL Absolute Lymphocytes 0.99 L (1.2-3.4) 10^3/uL Absolute Monocytes 0.66 (0.1-0.8) 10^3/uL Absolute Eosinophils 0.00 (0.0-0.7) 10^3/uL Absolute Basophils 0.00 (0.0-0.2) 10^3/uL Sodium 140 (136-145) mmol/L Potassium 4.7 (3.5-5.1) mmol/L Chloride 103 (98-107) mmol/L Carbon Dioxide 34.7 H (21.0-32.0) mmol/L Anion Gap 2.3 L (3-11) mmol/L BUN 23 H (7-18) mg/dL Creatinine 1.0 (0.55-1.02) mg/dL Est GFR (CKD-EPI 2020) 65.30 (mL/min/1.73m2) Glucose 143 H (74-106) mg/dL Calcium 9.1 (8.5-10.1) mg/dL Total Bilirubin 0.18 L (0.2-1.0) mg/dL AST 23 (15-37) U/L ALT 37 (14-59) U/L Alkaline Phosphatase 101 (46-116) U/L Total Protein 7.9 (6.4-8.2) g/dL Albumin 3.0 L (3.4-5.0) g/dL 08/17/24 13:24 Blood Culture - Preliminary Blood NO GROWTH 48 HOURS 08/17/24 16:52 Blood Culture - Preliminary Blood NO GROWTH 24 HOURS Intake and Output - 24 Hour Total 08/17/24 12:11 thru 08/19/24 16:47 Intake Total 2553 Output Total 2875 Balance -322 Weight 148.5 kg Intake: IV 370 Oral 2183 Output: Urine 2875 Other: Urine Color Yellow Urine Appearance Clear Urine Odor None Comment voided x2 Stool Size Small Stool Characteristics Soft Formed Falls Risk Assessment History of Falls No History 08/17/24 13:03 Fall Total Score 0 08/17/24 13:03 Level of Risk Standard/Low Risk 08/17/24 13:03 Problems Flu (Acute) Pneumonia (Acute) Respiratory failure (Acute) Smoker (Acute 09/26/13) Notes 08/19/24 18:26 Nursing Notes by Ryan Yee Pt transfered from ICU to [facility] room 214. [facility], Nursing Note: Initialized on 08/19/24 18:26 - END OF NOTE 08/17/24 12:59 Respiratory by Amor Brooks RT Initial Evalutation/Assessment Start: 08/17/24 12:46 Freq: ONCE Status: Active Protocol: Document 08/17/24 12:47 (Rec: 08/17/24 12:59 [id number]) RT Assessment Pulmonary History Pulmonary History COPD Smoking History Smoking/Tobacco Use Status Current every day Tobacco: How many years used 42 Tobacco Type cigarettes Packs per Day 1 Cigarettes per Day 20 Years smoked 42 Smoking packs per day 1 OXYGEN HISTORY: Supplemental O2 At Rest 0 With Exertion 0 CPAP Can use home machine N/A BIPAP Can you home machine N/A Trilogy/AVAPS Can use home machine N/A DME/Compliance DME N/A Compliance N/A Current Respiratory Symptoms Current Respiratory Symptoms Cough,Shortness of breath, Sputum production,Wheezing Activity Activity Level Pt normally is able to walk dogs and do her own grocery shopping at [facility] Respiratory Breath Sounds Breath Sounds Faint wheezing or rhonci, decreased sounds throughout Pulse Rate <100 Respiratory Rate 26-32 Shortness of Breath At rest Respiratory Therapy Score Total 6 Assessment and Plan RT Treatment Protocol Bronchodilator Aerosol Therapy Protocol,Lung Expansion Therapy Protocol,Bronchial Hygiene Therapy Protocol Note Pt uses Symbicort MDI 80/4.5, 2 puffs BID - when she remembers to take it. Also has Albuterol MDI PRN for rescue inhaler. On arrival to the ED today, pt's Symbicort inhaler is empty - states she has another one at home, and the albuterol inhaler has 8 puffs left. At baseline, pt is active and able to perform ADLs, do her own grocery shopping, and walk her dogs independently. Pt does not use any oxygen or NIV machines at home. Pt states she is still currently smoking aprx 1 pack of cigarettes a day. Pt has had previous PFT many years ago that showed indications of COPD, pt is not being followed by geospatial program management officer though, and has never had a COPD exacerbation in the past that warranted the use of emergent BiPAP. Given Moderate score of 6 on this assessment, pt will be given 10mg continuous albuterol nebulizer, acapella, incentive spirometer, respiratory viral testing, and nursing is obtaining VBG to determine possible need for NIV. Initialized on 08/17/24 12:59 - END OF NOTE v v v v v v v v v Sending and/or Receiving Nurses: Please use comment section below to note any information pertinent to the patient hand-off not included above. Information / Comments: Report received from: report received at 1813 from OSCAR Rios
[2024-08-19] MEDS: Amoxicillin 875/Clav. 125 TAB PO (20:28)
[2024-08-20] VITALS (9 sets, daily range): BP systolic 123–137; BP diastolic 76–84; PULSE 60–90; RESP 3–24; TEMP 36.5–36.9; O2SAT 88–94
[2024-08-20] MEDS: Acetaminophen 325 MG TAB PO (01:46)
[2024-08-20] MEDS: methylPREDNISolone SUCC 40 MG VIAL 60 MG IVP (01:47)
[2024-08-20] MEDS: Albuterol/Ipratropium 3 ML UPD VIAL UPD (02:10)
[2024-08-20] MEDS: Budesonide/Formoterol 80/4.5 6.9 GM 60 PUFF INH IH (08:23)
--- NOTE | 2024-08-20 08:57 | PDOC.CMPRO ---
Date of service: 08/20/24 Time of Service: 08:57 Care Management Progress Note Discharge Potential Discharge Needs: PCP F/U Appt Anticipated Barriers to Discharge: None Identified Patient/Family Education Needs: Review discharge instructions, discuss Ask Me Three Transportation: Private vehicle Plan: Anticipate Disha will return home once medically cleared. She will transport home via private vehicle by family, and will follow up with her PCP and discharge plan of care. CM will continue to follow. Social Determinants of Health Screening Will the Patient Participate in the Screening?: Declined to provide Social Determinants of Health Comments(SDOH Details): pt unstable at time of assessment
[2024-08-20] MEDS: predniSONE 20 MG TAB 40 MG PO (09:18)
[2024-08-20] MEDS: Furosemide 20 MG TAB PO (09:18)
[2024-08-20] MEDS: Normal Saline Flush 10 ML SYR IVP (09:18)
[2024-08-20] MEDS: Amoxicillin 875/Clav. 125 TAB PO (09:18)
[2024-08-20] MEDS: Enoxaparin 40 MG/0.4 ML SYR SC (09:19)
--- NOTE | 2024-08-20 13:47 | W.PM.DS.N ---
Date of service: 08/20/24 Time of Service: 13:48 DS: Diagnosis Discharge Diagnosis (1) Smoker: Status: Acute (2) Respiratory failure: Status: Resolved (3) Pneumonia: Status: Resolved (4) Flu: Status: Resolved Discharge Plan Disposition Patient Disposition: Home Condition: Good Discharge Details Reason For Visit: copd Admit Date/Time: 08/17/24 14:32 Admit Provider: Deepak Castellon Attending Provider: Deepak Castellon Primary Care Provider: Ale Jenkins Hospital Course Hospital Course: Patient initially presented with shortness of breath and was determined to be secondary to a combination of community-acquired pneumonia and influenza for which she was treated with antibiotics and also completed course of Tamiflu. She was also found to have acute hypoxic respiratory failure but during her hospitalization was weaned off of supplemental oxygen and ultimately on room air. She did have home exercise oxygen test which determined that she would not require any supplemental oxygen upon discharge. Ultimately was determined that the patient has significant improvement and stable for discharge home with hospital provided albuterol inhaler. Home Meds and New Rx's Prescriptions: New prednisone 20 mg tablet 40 mg PO DAILY Qty: 6 0RF Continued acetaminophen [Tylenol] 325 MG tablet 325 mg PO PRN furosemide 20 mg tablet 20 mg PO DAILY Mirena 21 mcg/24hr (up to 8 yrs) 52 mg intrauterine device 1 device intrauterine ONCE budesonide-formoterol [Symbicort] 80-4.5 mcg/actuation HFA aerosol inhaler 2 puff inhalation BID albuterol 90 mcg/actuation aerosol 90 mcg inhalation Q4-6M PRN Rx Instructions: 90 mcg inhaled; cyclobenzaprine 10 mg tablet 10 mg PO TID PRNQty: 10 0RF Discharge Instructions Instructions: Chronic Obstructive Pulmonary Disease (COPD) (DC) Stand Alone Forms: Nursing Discharge Form Referrals: Ale Jenkins [Primary Care Provider] - 09/04/24 4:00 pm Activity:: Activity as Tolerated Equipment/Supplies:: No Equipment Needed Diet:: As Tolerated Discharge Orders Discharge Orders: Discharge Order (Routine); Ordered 08/20/24 Ordered By: Sadi Carter Discharge Data Discharge Date/Time-TO BE ENTERED AT DEPARTURE: 08/20/24 14:43 DS: Summary Time Spent with Patient providing and/or coordinating discharge services: Greater than 30 minutes Status at Discharge Functional status at discharge: independent ambulation Overall status at discharge: patient is back to baseline Mental Status: mental status grossly normal Speech and Movement: speech and movement normal Mood: congruent mood Affect: normal affect Quality:SDOH Health Related Social Needs: No Data to Display Exam Narrative Exam Narrative: Well-appearing female sitting up in the bed no acute distress, ANO x 4, heart regular rhythm, lungs clear to auscultation bilaterally, abdomen soft, nontender, nondistended Psych Mental Status: mental status grossly normal Speech and Movement: speech and movement normal Mood: congruent mood Affect: normal affect DS: Data Vitals/I&O Vitals and I&O: Vital Signs Temperature 98.4 F 08/20/24 11:22 Temperature Source Temporal Artery Scan 08/20/24 11:22 Pulse 86 08/20/24 11:22 Pulse 70 08/19/24 13:01 Respiratory Rate 19 08/20/24 11:22 Respiratory Effort Short of Breath, Labored, Accessory Muscle Use, Incrsd Work of Breathing 08/17/24 12:57 Respiratory Depth Normal 08/17/24 12:57 Blood Pressure 123/81 08/20/24 11:22 Blood Pressure Mean 109 08/19/24 16:54 Blood Pressure Position Sitting 08/17/24 12:17 Pulse Oximetry 91 L 08/20/24 11:22 Oxygen Delivery Method Room Air 08/20/24 11:22 Oxygen Flow Rate 0 08/20/24 11:22 Fraction of Inspired Oxygen (FIO2) 35 08/18/24 13:53 Pain Level 0 08/20/24 11:22 Comment RN Notified 08/19/24 19:54 Intake & Output 08/19/24 08/20/24 08/20/24 17:59 05:59 17:59 Intake Total 862 / 862 Output Total 1100 / 1100 800 / 1900 Balance -238 / -238 -800 / -1038 Weight 327 lb 6.183 oz 328 lb 11.347 oz Intake: Oral 862 / 862 Output: Urine 1100 / 1100 800 / 1900 Other: Urine Color Yellow Yellow Urine Appearance Clear Clear Urine Odor None None Comment pT voided independently. Stool Size Small Moderate Stool Characteristics Soft Soft Formed Formed Brown Data Completed and Pending Labs on day of discharge: Labs from last 24 hours 08/17/24 15:45 Urine Legionella Ag Negative Preliminary micro results at discharge 08/17/24 16:52 Blood Culture - Preliminary Blood NO GROWTH 48 HOURS 08/17/24 13:24 Blood Culture - Preliminary Blood NO GROWTH 48 HOURS PFSH All Active Problems (Updated 08/21/24 @ 00:03 by ROSS RUSSO) Influenza A (Acute) Osteoarthritis of left knee (Acute) Steroid injection: 08/03/2024 Diverticulosis (Acute) Colon polyps (Acute) Adenoma determined by colorectal biopsy (Acute 10/25/16) sessile serrated adenoma of ascending colon Benign neoplasm of hand (Acute 10/22/13) Dysphonia (Acute 09/26/13) Neoplasm of skin (Acute 09/26/13) Smoker (Acute 09/26/13) Peripheral polyneuropathy (Acute 08/11/17) Constipation (Acute) Pre-op evaluation (Acute) Medical History IUD (intrauterine device) in place Hammertoe of right foot Bursitis of right shoulder [facility] Onychomycosis Knee pain, right Superficial thrombophlebitis Fatigue Constipation Obesity, Class III, BMI 40-49.9 (morbid obesity) Osteoarthritis Surgical History Excision, Skin Mass Colonoscopy - MAC (10/25/16) 12/07/19 Family History Mother Cervical cancer Social History Smoking/Tobacco Use Status: Current every day Tobacco Type: cigarettes Smoking packs per day: 1 Smoking cigarettes per day: 20.0 Years smoked: 35 Smoking pack-years: 35.00 Tobacco: How many years used: 42 Smoking risk assessment performed?: Yes Alcohol Intake: never Drug use: Never Substance use type: does not use Details: pt. reports she smokes 10-20 cigarettes/day Housing: other Current gender identity: female Do you feel safe at home: Yes Do you feel safe in your relationship?: Yes Time Spent with Patient Time Spent with Patient: <45 minutes Time was spent: preparing to see the patient(eg.review tests), obtaining and/or reviewing separately otained hiistory, ordering medications,tests, procedures, referring, communicating with other health home child care provider, indepentently interpreting results, counseling the patient and care coordination
[2024-08-20] MEDS: Albuterol HFA 8 GM 60 PUFF INH IH (14:12)
--- NOTE | 2024-08-20 16:16 | NUR.NOTE ---
Addendum entered by Mario Keller RN 08/20/24 16:34: Had initially confirmed the phone number on record is correct for patient. Was able to reach patient's next of kin (son Levi), and he stated he will have the patient call the unit. Original Note: Nursing Note: Patient called this unit stating she was unable to obtain her prednisone at the pharmacy she chose; she requested the prescription sent to [facility]. Dr. Carter was notified and was unable to locate the [facility]. Attempted to call the patient back, but was not able to reach anyone. Patient then called the unit again, and this was explained to the patient; Patient agreed to hold while this RN notified Dr. Carter to look at where else it can be sent. Dr. Carter sent the prescription to [facility] in [place], next to the initial pharmacy, however patient had hung up. Attempted to call the patient again twice, but was not able to reach anyone. A message was left to call the unit again.
--- NOTE | 2024-08-20 16:57 | CMDISCH_ITS ---
Date of service: 08/20/24 Time of Service: 16:57 LACE Index Scoring Tool Questions: Length of Stay (in days): 3 Was the patient admitted via the E.D.?: Yes Comorbidities: Chronic Pulmonary Disease E.D. Visits: 2 Answers: Total Score: 10 Risk of Readmission: High Risk Care Management Discharge Plan Reason for Hospitalization: COPD Discharge Plan: Disha will be discharged home with no new services. Her ex- will transport her via private vehicle and she will follow up with her PCP. Patient/Family Education Needs: Review discharge instructions, discuss Ask Me Three [facility] Health Related Social Needs: No Data to Display
== END 2024-08-20 14:43 | disposition home or self-care (01) | DRG 152 ==
LOC: ER 16:15 → ICU 16:26 → MS 08-19 18:24
PROVIDERS: Nurse Practitioner Acute Care; Admitting Provider Hospitalist; Emergency Provider Emergency Medicine; PCP Nurse Practitioner Family; Visit Provider Hospitalist
DX: J11.1 Influenza due to unidentified influenza virus with other respiratory manifestations; J96.01 Acute respiratory failure with hypoxia; J44.0 Chronic obstructive pulmonary disease with (acute) lower respiratory infection; Z68.42 Body mass index [BMI] 45.0-49.9, adult; F17.210 Nicotine dependence, cigarettes, uncomplicated; J18.9 Pneumonia, unspecified organism; I89.0 Lymphedema, not elsewhere classified; M17.12 Unilateral primary osteoarthritis, left knee; E66.813 Obesity, class 3
CPT/HCPCS: 00123; 36415; 80053; 82805; 85652; 87040; 87449; 87637; 93005; 94618; 94640; 94761; 96365; 96366; 96375; 99291; J1650; 71045; 83880; 84484; 85025; 93010; 94660; 94664; 94668; 94760; 99222; 99232; 99239; J0456; J0696; J1940; J1941; J2270; J2919; J7512; J7613; J7620

== ENCOUNTER 2024-11-20 00:33 | Outpatient (CLI) | payer MEDICAID, SELFPAY ==
--- NOTE | 2024-11-20 07:30 | DI.MRI_ITS ---
Exam(s) MR LOWER JOINT LT WO EXAM: MR LOWER JOINT LT WO CLINICAL HISTORY: PAIN,acute lateral meniscus tear lt knee, s83.282a TECHNIQUE: Multiplanar multisequence MRI of the knee was performed. COMPARISON: CR XR KNEE LT 3V AP,LAT,NIRANJAN from 05/04/2024 FINDINGS: EFFUSION: There is a moderate size joint effusion. There is synovial thickening noted in the suprapa tellar bursa region. There is a multi-septated thin Schmid's cyst at and above the popliteal fossa me asuring approximately 6 cm length. MARROW:There is no evidence of fracture, prominent bone contusion, nor osteochondral defects.. There are no significant osseous lesions. PATELLOFEMORAL COMPARTMENT: The quadriceps tendon is intact. The patellar ligament is intact. There is advanced full-thickness chondromalacia of the retropatellar cartilage, this most prominent o yanni the mid-lateral facet and there is some degenerative subarticular signal in the posterior patella at this level as well as marginal osteophytes off the lateral aspect of the patella and anterolatera l aspect of the lateral condyle. More moderate degenerative changes are noted in the medial aspect o f the patellofemoral compartment. There is no intraosseous signal to suggest recent patellar disloca tion. There are no patellar retinacular tears. CRUCIATE LIGAMENTS: The anterior cruciate ligament is intact.The posterior cruciate ligament is intac t. MEDIAL COMPARTMENT/MEDIAL MENISCUS: There are no obvious tears of the medial meniscus.There are mild degenerative changes in the medial compartment. No subarticular edema evident in the medial compartm ent.. No marginal osteophytes. MEDIAL COLLATERAL LIGAMENT: Intact LATERAL COMPARTMENT/LATERAL MENISCUS: There is complex tearing of the lateral meniscus. This involve s the posterior horn outer 3rd but there is also significant attenuation of the meniscus at the root level. Abnormal signal continues into the anterior horn. There is mild articular cartilage loss in the lateral compartment. This is more prominent anteriorly where there are also tiny subarticular cysts in the anterior weight-bearing surface of the lateral f emoral condyle. There are no marginal osteophytes. ILIOTIBIAL BAND: Intact LATERAL COLLATERAL LIGAMENT COMPLEX: The fibular collateral ligament is intact. The biceps femoris t endon is intact.Popliteus muscle and tendon are intact. IMPRESSION: 1. There is a somewhat complex tear of the lateral meniscus predominately involving the posterior hor n. There are mild osteoarthritic degenerative changes in the lateral compartment, most prominent ant eriorly. There are no tears of the medial meniscus and there are minimal degenerative changes in the medial compartment. 2. There is advanced chondromalacia patella with full-thickness cartilage loss over prominent aspect of the mid-lateral facet of the patella and more moderate cartilage loss over the medial facet. Ther e are marginal osteophytes off the lateral aspect of the patellofemoral compartment. There is also a prominent osteophyte off the superior posterior aspect of the patella 3. Moderate joint effusion. There is synovial thickening most prominent in the suprapatellar fluid. Also physical multi septated Schmid cyst noted in the medial popliteal fossa. 4. There are no cruciate nor collateral ligament tears. DATA REPOSITORY:
== END 2024-11-20 00:53 ==
LOC: DI 00:33
PROVIDERS: PCP Nurse Practitioner Family; Visit Provider Student in an Organized Health Care Education/Training Program
DX: S83.282A Other tear of lateral meniscus, current injury, left knee, initial encounter (principal); X58.XXXA Exposure to other specified factors, initial encounter
CPT/HCPCS: 73721

== ENCOUNTER 2025-03-14 18:10 | Outpatient (REF) | payer MEDICAID, SELFPAY ==
[2025-03-14 19:06] LABS: Abs Immature Grans 0.07 10^3/uL (0.0-0.06); HCT 48.6 % (36.0-46.0); HGB 15.5 g/dL (11.2-15.7); Immature Grans % 0.6 %; MCH 29.2 pg (27.0-33.0); MCHC 31.9 % (32.0-36.0); MCV 92 fL (80-95); MPV 10.4 fL (8.0-11.0); Platelet Count 382 10^3/uL (130-400); RBC 5.31 10^6/uL (3.93-5.22); RDW 15.2 % (11.7-14.6); RDW-SD 50.9 fL; WBC 12.50 10^3/uL (4.4-10.8)
[2025-03-14 19:27] LABS: ALT 30 U/L (14-59); AST 21 U/L (15-37); Albumin 3.5 g/dL (3.4-5.0); Alkaline Phosphatase 98 U/L (46-116); Anion Gap 4.5 mmol/L (3-11); BUN 19 mg/dL (7-18); Bilirubin, Total 0.2 mg/dL (0.2-1.0); CO2 31.5 mmol/L (21.0-32.0); Calcium 9.0 mg/dL (8.5-10.1); Chloride 106 mmol/L (98-107); Estimated GFR 58.24 (mL/min/1.73m2); Glucose 111 mg/dL (74-106); Potassium 4.1 mmol/L (3.5-5.1); Sodium 142 mmol/L (136-145); TSH (W/Ref FT4) 1.56 uIU/mL (0.36-3.74); Total Protein 7.7 g/dL (6.4-8.2)
== END 2025-03-14 18:11 | disposition home or self-care (01) ==
LOC: NCHCN 18:10
PROVIDERS: PCP Nurse Practitioner Family; Visit Provider Physician Assistant
DX: E66.01 Morbid (severe) obesity due to excess calories (principal)
CPT/HCPCS: 80053; 84443; 85025

== ENCOUNTER 2025-07-16 14:39 | Outpatient (REF) | payer MEDICAID, SELFPAY ==
[2025-07-16 19:19] LABS: Abs Immature Grans 0.04 10^3/uL (0.0-0.06); HCT 53.4 % (36.0-46.0); HGB 16.9 g/dL (11.2-15.7); Immature Grans % 0.4 %; MCH 29.1 pg (27.0-33.0); MCHC 31.6 % (32.0-36.0); MCV 92 fL (80-95); MPV 9.9 fL (8.0-11.0); Platelet Count 407 10^3/uL (130-400); RBC 5.81 10^6/uL (3.93-5.22); RDW 14.9 % (11.7-14.6); RDW-SD 50.3 fL; WBC 10.11 10^3/uL (4.4-10.8)
[2025-07-16 19:31] LABS: ALT 25 U/L (10-49); AST 23 U/L (<34); Albumin 4.2 g/dL (3.2-5.0); Alkaline Phosphatase 94 U/L (46-116); Anion Gap 5.6 mmol/L (3-11); BUN 10 mg/dL (9-23); Bilirubin, Total 0.3 mg/dL (0.2-1.2); CO2 30.4 mmol/L (20.0-31.0); Calcium 8.6 mg/dL (8.3-10.6); Chloride 107 mmol/L (98-107); Glucose 90 mg/dL (74-106); Potassium 4.1 mmol/L (3.5-5.1); Sodium 143 mmol/L (136-145); Total Protein 7.6 g/dL (5.7-8.2)
== END 2025-07-16 14:40 | disposition home or self-care (01) ==
LOC: NCHCN 14:39
PROVIDERS: PCP Nurse Practitioner Family; Visit Provider Physician Assistant
DX: R06.02 Shortness of breath (principal)
CPT/HCPCS: 80053; 83880; 85025

== ENCOUNTER → 2025-07-17 12:53 | Outpatient (CLI) | payer MEDICAID, SELFPAY ==
--- NOTE | 2025-07-17 | DI.RAD_ITS ---
Exam(s) XR CHEST 2V PA LATERAL EXAM: XR CHEST 2V PA LATERAL CLINICAL HISTORY: SOB, R06.02 TECHNIQUE: 2D digital imaging was performed. Two views. COMPARISON: CR,XR XR PORTABLE CHEST AP from 08/18/2024 FINDINGS: HEART: Normal size. Aorta: Not dilated. PULMONARY VASCULATURE: Normal. MEDIASTINUM: Unremarkable. LUNGS: Clear. PLEURAL SPACE: No pleural effusion or pneumothorax. BONE:Unremarkable for age. SOFT TISSUES: Unremarkable. IMPRESSION: No acute abnormality. DATA REPOSITORY: RADIATION DOSE DELIVERED:
== END ==
LOC: DI 12:53
PROVIDERS: PCP Nurse Practitioner Family; Visit Provider Physician Assistant
DX: R06.02 Shortness of breath (principal)
CPT/HCPCS: 71046